=== PATIENT | male | born 1940 | race Caucasian/White ===

== ENCOUNTER → 2018-06-10 12:13 | Outpatient (CLI) | payer MEDICARE, SELFPAY ==
[2018-06-10 14:04] LABS: BUN Creatinine Ratio 11.1 (6-22); Blood Urea Nitrogen 10 mg/dL (9-20); Calcium 9.7 mg/dL (8.4-10.2); Carbon Dioxide 24 mmol/L (22-32); Chloride 107 mmol/L (98-107); Estimated Glomerular Filt Rate > 60.0 mL/min (>60); Glucose 96 mg/dL (80-110); HEMOLYSIS 22 (0-50); Potassium 4.4 mmol/L (3.4-5.1); Sodium 145 mmol/L (137-145)
[2018-06-10 15:30] LABS: Vitamin D 25 Hydroxy (D3) 30.4 ng/mL (30.0-100.0)
== END ==
PROVIDERS: Family Provider Family Medicine; PCP Student in an Organized Health Care Education/Training Program; Visit Provider Student in an Organized Health Care Education/Training Program
DX: I10 Essential (primary) hypertension (principal); T50.2X1A Poisoning by carbonic-anhydrase inhibitors, benzothiadiazides and other diuretics, accidental (unintentional), initial encounter; E55.9 Vitamin D deficiency, unspecified
CPT/HCPCS: 36415; 80048; 82306

== ENCOUNTER → 2018-06-23 12:01 | Outpatient (CLI) | payer MEDICARE, SELFPAY ==
--- NOTE | 2018-06-23 12:03 | DI.US.S_ITS ---
PROCEDURE: US ABD AORTA ANEURYSM SCREEN INDICATIONS: HISTORY SMOKING TECHNIQUE: Real time scanning was performed of the aorta and iliac arteries, with image documentation. COMPARISON: None. FINDINGS: Aorta: Proximal aortic diameter measures 1.7 cm. Mid-aorta measures 1.5 cm. Distal aortic diameter is 1.3 cm. Iliac arteries: Right common iliac artery measures 0.9 cm. Left common iliac artery measures 0.9 cm. IMPRESSION: No abdominal aortic or proximal common iliac artery aneurysm. Dictated by: Francesco MOREL Interpreted: Lorrie Carter MD on 06/23/2018 at 14:59 Approved by: Lorrie Carter M.D. on 06/23/2018 at 16:41
== END ==
PROVIDERS: PCP Student in an Organized Health Care Education/Training Program; Visit Provider Student in an Organized Health Care Education/Training Program
DX: Z13.6 Encounter for screening for cardiovascular disorders (principal); Z87.891 Personal history of nicotine dependence
CPT/HCPCS: 76706

== ENCOUNTER → 2020-11-07 14:25 | Outpatient (CLI) | payer MEDICARE, SELFPAY ==
--- NOTE | 2020-11-07 14:27 | DI.RAD.S_ITS ---
PROCEDURE: XR CHEST 2V INDICATIONS: Chest pain TECHNIQUE: 2 views of the chest were acquired. COMPARISON: None. FINDINGS: Surgical changes and devices: None. Lungs and pleura: Lungs are mildly abnormal with a mild interstitial prominence and there is relative flattening of the diaphragms on the lateral view. This may indicate prior smoking history.. No pleural effusions or pneumothorax. Mediastinum: Mediastinal contours are normal. Heart size is normal. Bones and chest wall: No suspicious bony abnormalities. Soft tissues appear unremarkable. IMPRESSION: A definite source of new chest pain is not seen. Possible mild pulmonary hyperexpansion Dictated by: Reji Hanson M.D. on 11/07/2020 at 15:22 Approved by: Reji Hanson M.D. on 11/07/2020 at 15:33
== END ==
PROVIDERS: PCP Student in an Organized Health Care Education/Training Program; Referring Provider Student in an Organized Health Care Education/Training Program; Visit Provider Student in an Organized Health Care Education/Training Program
DX: R07.9 Chest pain, unspecified (principal)
CPT/HCPCS: 71046

== ENCOUNTER → 2020-11-08 08:44 | Outpatient (CLI) | payer MEDICARE, SELFPAY ==
[2020-11-08 09:56] LABS: Alanine Aminotransferase 32 IU/L (<50); Albumin 4.4 g/dL (3.5-5.0); Albumin Globulin Ratio 1.3 (1.0-2.8); Alkaline Phosphatase 87 U/L (38-126); Aspartate Aminotransferase 44 IU/L (17-59); BUN Creatinine Ratio 15.2 (6-22); Blood Urea Nitrogen 16 mg/dL (9-20); Calcium 9.5 mg/dL (8.4-10.2); Carbon Dioxide 25 mmol/L (22-32); Chloride 105 mmol/L (98-107); Estimated Glomerular Filt Rate > 60.0 mL/min (>60); Globulin 3.3 g/dL (1.7-4.1); Glucose 102 mg/dL (80-110); HEMOLYSIS < 15 (0-50); Potassium 3.9 mmol/L (3.4-5.1); Sodium 140 mmol/L (137-145); Total Protein 7.7 g/dL (6.3-8.2)
== END ==
PROVIDERS: PCP Student in an Organized Health Care Education/Training Program; Referring Provider Student in an Organized Health Care Education/Training Program; Visit Provider Student in an Organized Health Care Education/Training Program
DX: I10 Essential (primary) hypertension (principal); Z78.9 Other specified health status; Z79.899 Other long term (current) drug therapy
CPT/HCPCS: 36415; 80053

== ENCOUNTER → 2021-11-26 14:21 | Outpatient (CLI) | payer MEDICARE, SELFPAY ==
[2021-11-26 17:23] LABS: Alanine Aminotransferase 34 IU/L (<50); Albumin 4.4 g/dL (3.5-5.0); Albumin Globulin Ratio 1.3 (1.0-2.8); Alkaline Phosphatase 88 U/L (38-126); Aspartate Aminotransferase 49 IU/L (17-59); Bilirubin Total 1.4 mg/dL (0.2-1.3); Blood Urea Nitrogen 20 mg/dL (9-20); Carbon Dioxide 25 mmol/L (22-32); Chloride 103 mmol/L (98-107); Cholesterol 169 mg/dL (140-199); Estimated Glomerular Filt Rate 54 mL/min (>60); Globulin 3.5 g/dL (1.7-4.1); Glucose 105 mg/dL (80-110); HDL Cholesterol 56 mg/dL (40-60); HEMOLYSIS < 15 (0-50); LDL Cholesterol Calculated 93 mg/dL (<100); Potassium 4.5 mmol/L (3.4-5.1); Sodium 137 mmol/L (137-145); Total Protein 7.9 g/dL (6.3-8.2); Triglycerides 102 mg/dL (35-150)
[2021-11-26 18:24] LABS: Creatinine Urine Random 89.9 mg/dL
[2021-11-26 18:27] LABS: Microalbumin Urine Random 3.6 mg/dL (0-1.6)
== END ==
PROVIDERS: PCP Student in an Organized Health Care Education/Training Program; Referring Provider Student in an Organized Health Care Education/Training Program; Visit Provider Student in an Organized Health Care Education/Training Program
DX: E78.5 Hyperlipidemia, unspecified (principal); Z12.11 Encounter for screening for malignant neoplasm of colon; I10 Essential (primary) hypertension; Z78.9 Other specified health status
CPT/HCPCS: 36415; 80053; 80061; 82043; 82570

== ENCOUNTER → 2021-11-27 13:59 | Outpatient (CLI) | payer MEDICARE, SELFPAY ==
[2021-11-28 07:37] LABS: Fecal Immunochemical Test Positive (Negative)
== END ==
PROVIDERS: PCP Student in an Organized Health Care Education/Training Program; Referring Provider Student in an Organized Health Care Education/Training Program; Visit Provider Student in an Organized Health Care Education/Training Program
DX: Z12.11 Encounter for screening for malignant neoplasm of colon (principal)
CPT/HCPCS: 82274

== ENCOUNTER → 2021-12-12 09:15 | Outpatient (CLI) | payer MEDICARE, SELFPAY ==
[2021-12-12 10:18] LABS: COVID19 -Nasal RAPID Negative (Negative)
[2021-12-12 11:29] LABS: BUN Creatinine Ratio 12.1 (6-22); Blood Urea Nitrogen 15 mg/dL (9-20); Estimated Glomerular Filt Rate 59 mL/min (>60)
[2021-12-12 11:44] LABS: Creatinine Urine Random 61.3 mg/dL
[2021-12-12 11:48] LABS: Microalbumi Creatinin Ratio Ur 16.3 ug/mg CR (<30)
== END ==
PROVIDERS: Surgery; PCP Student in an Organized Health Care Education/Training Program; Referring Provider Student in an Organized Health Care Education/Training Program; Visit Provider Student in an Organized Health Care Education/Training Program
DX: Z20.822 Contact with and (suspected) exposure to COVID-19 (principal); Z01.812 Encounter for preprocedural laboratory examination; N17.9 Acute kidney failure, unspecified
CPT/HCPCS: 36415; 82043; 82565; 82570; 84520; 87635; C9803

== ENCOUNTER 2021-12-14 09:56 | Day surgery (SDC) | payer MEDICARE, SELFPAY ==
--- NOTE | 2021-12-14 | PATH_ITS ---
[facility] Accession Number: [id number] . 01 Material submitted: . PART A: cecum - CECAL MASS PART B: colon - COLON . 01 Diagnosis: A. Cecum, Mass, Biopsy: Tubulovillous adenoma. No evidence of malignancy or high-grade dysplasia. . B. Colon, Biopsies: Colonic mucosa with no diagnostic abnormality. Negative for active, chronic, and microscopic colitis. Negative for dysplasia and malignancy. . MRV 12/17/2021 1533 Local . 01 Electronically signed: . Kimberly Mckeon MD, Pathologist NPI- [id number] . 01 Gross description: . Part A: CECAL MASS: Received in formalin are multiple fragment(s) of jose, soft tissue measuring 2.0 x 0.6 x 0.2 cm in aggregate submitted entirely in 1 cassette(s) Part B: COLON: Received in formalin is 1 fragment(s) of jose, soft tissue measuring 0.4 x 0.3 x 0.2 cm to 0.3 x 0.3 x 0.3 cm submitted entirely in 1 cassette(s) /CPE 12/15/2021 0722 Local . 01 Pathologist provided ICD-10: D12.0 . 01 CPT . 506931, 899344 Specimen Comment: A courtesy copy of this report has been sent to [phone] Performed at: [facility] [address] [place] [address], [place], [place] [id number] MD Deyvi Melendez MD Phone: [phone]
[2021-12-14 10:10] VITALS: BP 174/91; PULSE 96; RESP 22; TEMP 36.9; O2SAT 98
[2021-12-14 10:12] VITALS: BMI 29.9
[2021-12-14] MEDS: LACTATED RINGERS 1,000 ML 100 ML IV (10:25)
--- NOTE | 2021-12-14 10:50 | PM.HP.1 ---
History of Present Illness History of Present Illness Date Patient Seen: 12/14/21 Time Patient Seen: 10:50 Chief complaint: [facility] [place] Narrative: H/o colon polyps and h/o prostate cancer Patient History Medical History Chicken pox Colon polyps (2009) Dupuytren's contracture (09/28/13) Elevated LFTs Hyperlipidemia (1998) Hypertension (1977) Measles Ulcerative colitis Surgical History History of colonoscopy with polypectomy (03/05/16) History of colonoscopy with polypectomy (2009) Family & Social History Family History Father Hypertension Cardiac disorder Congestive heart failure Mother No problems noted. Brother Colon cancer Social History: household members spouse Tobacco & Substance use: Smoking Status Former smoker alcohol intake current Substance Use Type does not use Meds Home Medications and Allergies Home Medications Medication Instructions Recorded Confirmed Type potassium chloride 20 mEq 20 meq PO DAILY #90 tab 01/03/21 Rx tablet,extended release furosemide 40 mg tablet 40 mg PO BID #180 tab 10/22/21 Rx simvastatin 40 mg tablet 40 mg PO QDAY #90 tab 10/22/21 Rx atenolol 100 mg tablet 100 mg PO QDAY #90 tab 10/29/21 12/14/21 Rx felodipine 5 mg tablet,extended 5 mg PO DAILY #90 tab 10/29/21 12/14/21 Rx release 24 hr losartan 100 mg tablet 100 mg PO DAILY #90 tab 12/03/21 Rx Allergies Allergy/AdvReac Type Severity Reaction Status Date / Time No Known Drug Allergies Allergy Verified 12/14/21 10:01 Review of Systems Review of Systems ROS: Yes All systems reviewed with the patient and are negative except as otherwise documented Exam Vital Signs (past 8 hours): - 12/14/21 10:10 Temperature 98.5 F Pulse Rate 96 H Respiratory Rate 22 Blood Pressure 174/91 H Pulse Oximetry 98 Oxygen Delivery Method Room Air Const General: cooperative and comfortable Nutritional Appearance: average body habitus Orientation: alert HENMT Head: normal to inspection, normocephalic and atraumatic Eyes General: appearance normal, both eyes and all related structures Neck Neck: trachea midline Chest Chest: normal inspection of the chest Resp Effort & Inspection: normal respiratory effort and able to speak in complete sentences Cardio Rate: regular rate Rhythm: regular rhythm GI Inspection: normal to inspection Skin General: atrophy and ecchymosis Neuro General: patient alert, patient awake and patient oriented x3 Cognition: normal cognition Extrem General: normal to inspection Psych Appearance: grossly normal Affect: normal affect Judgment: judgment good Assessment & Plan Assessment & Plan narrative: Positive FIT test and h/o colon polyps. H/o Crohn's dz Plan: colonoscopy with biopsy if needed. COVID-19 COVID-19 status: Negative Time Spent With Patient Time with patient: less than 30 minutes Critical Care time: I spent a total of [] minutes of critical care time on this patient's care today; this time is exclusive of procedural time.
[2021-12-14] MEDS: MIDAZOLAM 5 MG/5 ML VIAL 4 MG IV (11:13)
[2021-12-14] MEDS: fentaNYL 250 MCG/5 ML INJ IV (11:13)
--- NOTE | 2021-12-14 11:13 | PM.OP.COLON ---
Operative Date/Time/Diagnoses Date of procedure: 12/14/21 Time of procedure: 11:13 Pre-op diagnosis: h/o colon polyps, positive FIT test, H/o Crohn's Post-op diagnosis: same Procedure & Clinicians Study performed: Colonoscopy with hot and cold snare biopsy, cold forceps biopsy using moderate sedation Same procedure as scheduled: Yes Indications: Positive fit test, history of colon polyps, history of Crohn's disease Surgeon: Trish Mendosa Procedure Notes SCOAP/Timeout: done Procedure in detail: Preop diagnosis: Positive fit test Postop diagnosis: Same Operative procedure: Colonoscopy with hot and cold snare biopsy and cold forceps polypectomy Surgeon: Fabiola Mendosa MD Anesthetic: Fentanyl and Versed, Findings: A cecal mass covering 2/3 circumference of the cecal valve area. And a small sessile polyp in the transverse colon taken with the cold forceps measuring approximately 4 mm in size Procedure: Patient placed in a lateral position. Rectal exam performed showing no mass no colon. Colonoscope inserted into the rectum and advanced to ileocecal valve with minimal difficulty. Insufflation extraction of the scope and the above findings. Retroflexed was included in the rectum where there is scarring from previous prostate cancer treatment but no masses. No significant mucosal abnormalities Impression: Cecal mass likely cancerous, needs resection due to bleeding. And a edematous polyp of the transverse colon. Plan: Referral to Dr. Robin Simeon in surgery to discuss options. Referral back to his PCP will organized treatment with Oncology when appropriate. Sedation minutes: 27 Findings: divertiulosis, polyp(s) (Transverse, 4 mm, cold forceps) and possible cancer (Cecum) Specimen(s): other (Cecal biopsies and polyp from transverse colon) Complications: none Impression: Likely some right-sided colon cancer and a adenomatous polyp in the transverse colon. Post-procedure Recommendations: Other recommendation(s) (Referral to general surgeon marked on a MD milton) Disposition: PACU
[2021-12-14 11:41] VITALS: BP 111/72; PULSE 78; RESP 18; TEMP 36.4; O2SAT 95
[2021-12-14 11:46] VITALS: BP 134/78; PULSE 80; RESP 14; O2SAT 96
[2021-12-14 11:50] VITALS: BP 133/76; PULSE 79; RESP 18; O2SAT 94
[2021-12-14 11:53] VITALS: BP 127/76; PULSE 78; RESP 16; TEMP 36.3; O2SAT 94
--- NOTE | 2021-12-14 12:03 | SUR.PHASEII ---
talked to Dr. Mendosa about talking to pt about his diagnosis. She said she would come and talk to him.
[2021-12-14 12:07] VITALS: BP 154/69; PULSE 77; RESP 16; TEMP 36.6; O2SAT 96
== END 2021-12-14 13:00 | disposition home or self-care (01) ==
PROVIDERS: PCP Student in an Organized Health Care Education/Training Program; Referring Provider Surgery; Visit Provider Surgery
PROC: 0DJD8ZZ Inspection of Lower Intestinal Tract, Via Natural or Artificial Opening Endoscopic (ICD-10-PCS; CPT 45378; principal; 2021-12-14 10:45)
DX: R19.5 Other fecal abnormalities (principal); Z86.010 Personal history of colon polyps; Z85.46 Personal history of malignant neoplasm of prostate; D12.0 Benign neoplasm of cecum
CPT/HCPCS: 45385; 45380; 99152; 99153; J2250; J3010

== ENCOUNTER → 2021-12-24 15:51 | Outpatient (CLI) | payer MEDICARE, SELFPAY ==
[2021-12-24 17:20] LABS: Add Manual Diff / Slide Review NO; Basophils Absolute Auto 0 /uL (0-100); Basophils Percent Auto 0.3 % (0-2); Eosinophils Absolute Auto 300 /uL (0-450); Eosinophils Percent Auto 2.7 % (2-4); Hematocrit 40.1 % (41-53); Hemoglobin 13.8 g/dL (13.5-17.5); Lymphocytes Absolute Auto 1300 /uL (1100-4500); Lymphocytes Percent Auto 11.5 % (25-40); Mean Corpuscular HGB Conc 34.3 % (30-36); Mean Corpuscular Hemoglobin 34.8 PG (26-34); Mean Corpuscular Volume 101.6 fL (80-100); Monocytes Absolute Auto 1500 /uL (0-900); Monocytes Percent Auto 13.4 % (3-14); Neutrophils Absolute Auto 8000 /uL (1500-7000); Neutrophils Percent Auto 72.1 % (50-75); Platelet Count 277 X10^3/uL (150-400); Red Blood Cell Count 3.95 X10^6/uL (4.5-5.9); Red Cell Distribution Width 12.8 % (11.6-14.8); White Blood Cell Count 11.1 X10^3/uL (4.5-11.0)
[2021-12-24 17:46] LABS: Alanine Aminotransferase 34 IU/L (<50); Albumin 4.4 g/dL (3.5-5.0); Albumin Globulin Ratio 1.5 (1.0-2.8); Alkaline Phosphatase 89 U/L (38-126); Aspartate Aminotransferase 41 IU/L (17-59); BUN Creatinine Ratio 13.7 (6-22); Bilirubin Total 1.3 mg/dL (0.2-1.3); Blood Urea Nitrogen 16 mg/dL (9-20); Calcium 9.4 mg/dL (8.4-10.2); Carbon Dioxide 26 mmol/L (22-32); Chloride 104 mmol/L (98-107); Estimated Glomerular Filt Rate > 60 mL/min (>60); Glucose 102 mg/dL (80-110); HEMOLYSIS < 15 (0-50); Potassium 4.4 mmol/L (3.4-5.1); Sodium 138 mmol/L (137-145); Total Protein 7.4 g/dL (6.3-8.2)
[2021-12-24 18:12] LABS: Carcinoembryonic Antigen 7.2 ng/mL (0.1-3.0)
== END ==
PROVIDERS: PCP Student in an Organized Health Care Education/Training Program; Referring Provider Surgery; Visit Provider Surgery
DX: K63.89 Other specified diseases of intestine (principal)
CPT/HCPCS: 36415; 80053; 82378; 85025; 99214

== ENCOUNTER → 2022-01-15 09:04 | Outpatient (CLI) | payer MEDICARE, SELFPAY ==
[2022-01-15 10:47] LABS: COVID19 -Nasal RAPID Negative (Negative)
== END ==
PROVIDERS: PCP Student in an Organized Health Care Education/Training Program; Visit Provider Surgery
DX: Z01.812 Encounter for preprocedural laboratory examination (principal); Z20.822 Contact with and (suspected) exposure to COVID-19
CPT/HCPCS: 87635

== ENCOUNTER 2022-01-16 11:06 | Inpatient (IN) | payer MEDICARE, SELFPAY ==
[2022-01-08 07:30] VITALS: BMI 29.2
[2022-01-16] VITALS (12 sets, daily range): BP systolic 110–144; BP diastolic 39–75; PULSE 62–82; RESP 14–19; TEMP 35.7–37.1; O2SAT 93–97; BMI 29.2
--- NOTE | 2022-01-16 | PATH_ITS ---
[facility] Accession Number: [id number] . 01 Material submitted: . colon - RIGHT COLON . 01 Diagnosis: Right Colon, Right Hemicolectomy: Invasive adenocarcinoma, moderately differentiated; see Cancer Case Summary. One of eight lymph nodes positive for metastatic adenocarcinoma. Intact DNA mismatch repair proteins by immunohistochemical technique. Fibrous obliteration of the tip of the appendix. . . CANCER CASE SUMMARY - COLON AND RECTUM Specimen Procedure: Right hemicolectomy. Tumor Tumor site: Cecum, ileocecal valve. Histologic type: Adenocarcinoma. Histologic grade: G2, moderately differentiated. Tumor size: 2.5 cm in greatest dimension. Multiple primary sites: Not applicable. Tumor extent: Invades through muscularis propria into pericolonic tissue. Macroscopic tumor perforation: Not identified. Lymphovascular invasion: Not identified. Perineural invasion: Present. Treatment effect: No known presurgical therapy. Margins Margin status for invasive carcinoma: All margins negative for invasive carcinoma. Margin status for noninvasive tumor: All margins negative for dysplasia. Regional lymph nodes: Regional lymph node status: Tumor present in regional lymph nodes. Number of lymph nodes with tumor: One. Number of lymph nodes examined: Eight. Tumor deposits: Present. Number of tumor deposits: One. Pathologic stage classification (pTNM, AJCC 8th Edition): PT category: pT3. PN categoar: pN1a. Special studies: IMMUNOHISTOCHEMISTRY TESTING FOR MISMATCH REPAIR PROTEINS: . MLH1: Intact nuclear expression. MSH2: Intact nuclear expression. MSH6: Intact nuclear expression. PMS2: Intact nuclear expression. Background nonneoplastic tissue/internal control with intact nuclear expression. . INTERPRETATION: No loss of nuclear expression of MMR proteins: low probability of microsatellite instability-high (MSI-H)* . * There are exceptions to the above IHC interpretations. These results should not be considered in isolation, and clinical correlation with genetic counseling is recommended to assess the need for germline testing. . * This test was developed and its performance characteristics determined by [employer]. It has not been cleared or approved by the U.S. Food and Drug Administration. The FDA has determined that such clearance or approval is not necessary. This test is used for clinical purposes. It should not be regarded as investigational or for research. [facility] 01/22/[address] [facility] . 01 Electronically signed: . Benjie Swann MD, PhD, Pathologist NPI- [id number] . 01 Gross description: . Received in formalin in a specimen container labeled with the patient's name, medical record number, and right colon, is a segment of colon with stapled resection margin, attached appendix, and mesentery. The actual colon measures 10.0 cm in length and 3.0 cm in diameter. Stapled resection margin measures 3.5 cm in length and is inked in green. The proximal resection margin (terminal ileum resection margin) measures 2.0 cm in length and is inked in red. The distal resection margin (colon resection margin) is inked in green. The fibroadipose tissue is serially sectioned and three possible lymph nodes are grossly identified ranging from 0.6 to 0.8 cm in maximum dimension. Attached appendix measures 3.5 cm in length and 0.5 cm in maximum diameter. Attached mesentery measures 13.0 x 7.0 x 7.0 cm. There is a centrally located defect within colonic wall that measures 4.0 cm in diameter. The defect is 3.0 cm away from the colonic resection margin. The defect is revealed in folded colonic mucosa, it is inked in blue. The serosal surface is pink, smooth, glistening, and grossly unremarkable. The mesenteric resection margin is inked in black. The specimen is opened to reveal a 2.5 x 2.0 x 0.8 cm raised multilobulated irregularly shaped mass. The mass is 7.5 cm away from the resection margin and grossly focally invades the ileocecal valve. The ileocecal valve is 5.5 cm away from the resection margin. On cut surfaces, the mass is solid white, slightly rigid on touch. The serosal surface underneath the mass is inked in blue. On cut surfaces the mass is going in and through the muscularis propria and grossly abuts the serosal surface. No other distinct lesions are grossly identified. . The remainder of colonic mucosa is folded pink and grossly unremarkable. . The appendix is serially sectioned to reveal 0.2 cm lumen filled by fecal content. No distinct lesions or perforations are grossly identified within the appendix. . The apprenticeship representative sections are submitted as follows: A1: Terminal ileum resection margin en face. A2: Colon resection margin en face. A3: Mesentery resection margin shave en face. A4: Mass with ileocecal valve cross-section. A5-A7: Mass apprenticeship representative cross-section. A8: Colonic wall defect cross-section. A9: Grossly unremarkable colonic wall full thickness. A10: Deep and cross-sections of appendix. A11: One possible lymph node, bisected, entirely submitted. A12: Two possible lymph nodes, both bisected, entirely submitted (one of the lymph nodes is inked in blue). A13-A22: Fibroadipose tissue. (KV:cmc10 111434) A23-A37: Additional fibroadipose tissue. (KV:cmc10 307132) /MRV 01/22/2022 1139 Local . 01 Pathologist provided ICD-10: C18.0 . 01 CPT . 442843, S71374, T76187 Specimen Comment: A courtesy copy of this report has been sent to [phone] Performed at: 01 [facility] [address] [place] [address], [place], [place] [id number] MD Deyvi Melendez MD Phone: [phone]
--- NOTE | 2022-01-16 11:19 | DI.CT.S_ITS ---
PROCEDURE: CT CHEST ABD PEL W CON INDICATIONS: 81-year-old man with cecum mass. TECHNIQUE: After the administration of oral and intravenous contrast, axial sections acquired from the supraclavicular neck to the pubic symphysis. Coronal and sagittal reformats were performed. For radiation dose reduction, the following was used: automated exposure control, adjustment of mA and/or kV according to patient size. COMPARISON:None. FINDINGS: Image quality: Excellent. CHEST: Lower Neck: No enlarged lymph nodes. Thyroid: Within normal limits. Axillae: No enlarged lymph nodes. Chest Wall: Unremarkable. Lungs and Airways: Bilateral subpleural septal thickening and mild pulmonary fibrosis, most pronounced in the right middle lobe and lingula. There is a 3 mm nodule in the right upper lobe (series 3, image 140). No consolidation. Pleura: No pneumothorax or pleural effusions. Heart: Heart size is mildly increased. No pericardial effusion. Mild coronary artery calcification. Thoracic Vessels: The aorta and pulmonary arteries demonstrate normal size. Mediastinum and Pat: No enlarged lymph nodes. Esophagus: No wall thickening. Small hiatal hernia. ABDOMEN: Liver: Normal size. Moderate hepatic steatosis. Gallbladder: Unremarkable. Biliary ducts: Unremarkable. Pancreas: Unremarkable. Spleen: Unremarkable. Adrenal Glands: Unremarkable. Kidneys and Ureters: Normal size and enhancement. There are a couple small nonobstructive stones in the inferior pole of the left kidney measuring 4 mm and 1 mm. Stomach and Bowel: There is irregular focal thickening of cecum. Stomach, small bowel loops, and colon are normal in caliber. Peritoneum: No abnormal intraperitoneal fluid. No free air. Ventral Wall: No hernia. Abdominal Nodes: No retroperitoneal adenopathy by size criteria. There is mesenteric stranding. A 1.4 x 1.7 cm mesenteric lymph node is present. Tiny mesenteric lymph nodes are seen in the right lower quadrant measuring 2-3 mm. Vessels: Aorta and inferior vena cava are normal in size. Moderate atherosclerotic calcifications. PELVIS: Pelvic Organs: Unremarkable. Bladder: Unremarkable. Pelvic Nodes: No enlarged lymph nodes. Miscellaneous: Small fat containing left inguinal hernia. Bones: There is grade 1 anterolisthesis of L5 on S1 secondary to bilateral pars defects. Degenerative disc disease and facet arthropathy in lumbar spine. IMPRESSION: 1. There is irregular focal thickening of cecum. Please correlate with tissue diagnosis. 2. Mesenteric stranding and 8 enlarged mesenteric lymph node. This findings are nonspecific and may be secondary to infectious, inflammatory or neoplastic etiology. Recommend clinical correlation and follow up. 3. Hepatic steatosis. 4. Non-obstructive left renal calculi. 5 A 3 mm nodule in the right upper lobe. Please see enclosed follow-up recommendation. 6. Bilateral subpleural septal thickening and pulmonary fibrosis. The finding may be secondary to chronic interstitial lung disease such as UIP. 7. Small hiatal hernia. Fleischner Society criteria for SOLID lung nodule followup. Nodule size (mm)Low-risk patientHigh-risk patient?4No follow-up neededFollow-up at 12 mo; if no change, no further follow-up>0-7Biitsh-ua CT at 12 mo; if no change, no further follow-up needed.Initial follow-up CT at 6-12 mo, then 18-24 mo if no change. >6-8Initial follow-up CT at 6-12 mo, then 18-24 mo if no change. Initial follow-up CT at 3-6 mo, then 9-12 mo and 24 mo if no change. >8Follow-up CT at 3, 9, 24 mo. Or PET and/or biopsy.Same as for low-risk pts. Dictated by: Avery Lance M.D. on 01/16/2022 at 14:03 Approved by: Avery Lance M.D. on 01/16/2022 at 14:15
[2022-01-16] MEDS: LACTATED RINGERS 1,000 ML 42 ML IV (11:48)
--- NOTE | 2022-01-16 13:09 | PM.PREOP ---
Pre-operative Note COVID-19 COVID-19 status: Negative Result date/Date tested (Pos, Neg/Pending): 01/15/22 Interval Note History & Physical reviewed/Exam performed by Physician: Yes Changes to H&P: Yes H&P completed within 30 days and has changed as indicated here:: CT chest/abdomen/pelvis shows no obvious metastatic lesions, no obvious cirrhosis. ASA Class (for procedural sedation): II
[2022-01-16] MEDS: AMPICILLIN/SULBACTAM 3 GM 3 GM in SODIUM CHLORIDE 0.9% 100 ML IV (14:35)
[2022-01-16] MEDS: BUPIVACAINE 0.5% (PF) VIAL 30 ML INJ (14:40)
[2022-01-16] MEDS: LIDOCAINE 1% W/EPI 20 ML INJ (14:40)
--- NOTE | 2022-01-16 15:01 | SUR.OPER ---
Supine on padded OR bed, head on pillow, left arm padded and tucked at side, legs uncrossed, safety belt at thigh, tape over blanket over lower legs .
[2022-01-16] MEDS: BUPIVACAINE LIPOSOME 266 MG/20 ML VIAL INJ (17:40)
--- NOTE | 2022-01-16 18:25 | P.OP_ITS ---
Operative Date/Time/Diagnoses Date of procedure: 01/16/22 Time of procedure: 18:26 Pre-op diagnosis: Unresectable cecal polyp Post-op diagnosis: same Procedure & Clinicians Procedure: Laparoscopic assisted right hemicolectomy Same procedure as scheduled: Yes Surgeon: Robin Simeon Varnish Filterer: Naldo Brown Operative Notes Procedure in detail: Operation: Laparoscopic assisted right hemicolectomy Surgeon: Arely REILLY Varnish Filterer: Johnie Brown provided assistance with exposure as well as creation of the anastomosis. Anesthesia: General endotracheal anesthesia The patient is a 81-year-old man who presented with an unresectable cecal polyp. The pathology did not show malignancy however because the polyp was behind the ileocecal valve and was not endoscopically resectable he was consented for a laparoscopic assisted right hemicolectomy. Unasyn was administered. The patient was brought to the operating room and placed on the table in the supine position. General endotracheal anesthesia was induced. Wynne catheter was placed. The abdomen was prepped and draped in the usual fashion and a time-out was performed. A 1 cm supraumbilical incision was created. Dissection was carried down to the fascia which was scored in the midl ine with cautery. The peritoneum was pierced with a Peon clamp. A Javire port was placed and the abdomen was insufflated to 15 mmHg. The camera was inserted and there was no evidence of any injury from the entry. 5 mm ports were placed in the suprapubic position, right lower quadrant, right upper quadrant and left upper quadrant under direct vision. We explored the abdomen. The patient had r ather significant visceral adiposity. We started taking down the omental attachments to the proximal transverse colon until we could clearly see first portion the duodenum. We carefully dissected the right transverse mesocolon off of duodenum and pancreatic head staying in the natural cleavage plane. We then took down the hepatic flexure and the right colon in the same plane. We then mobilized the cecum and the mesentery to the terminal ileum off of the sidewall. The distal terminal ileum was adherent to the right pelvic sidewall and was difficult to mobilize it laparoscopically. Furthermore the midtransverse colon was also quite adherent to the bulky omentum. We worked extensively to mobilize the transverse colon beyond the midline. We removed the laparoscopic equipment and created a 12 cm periumbilical incision. An Elie retractor was placed into the wound and the right colon was exteriorized. We then created mesenteric windows along the mesenteric border of terminal ileum and another along the proximal transverse colon just proximal to right branch of the middle colic artery. We divided the mesentery with the LigaSure. We then lined up the terminal ileum and transverse colon and a 3-0 silk stitch was placed at the crotch. Blue towels were placed around the bowel and enterotomies were created. A [id number] functional end-to-end anastomosis was created using the 75 mm linear EDGAR stapler with blue loads. The enterotomies was closed in 2 layers using a running 3-0 PDS followed by multiple interrupted 3-0 silk sutures. The anastomosis appeared well perfused and patent and allowed to fall back into the right abdomen. We then transition to a clean closure and injected Exparel into the plane above and below the fascia. The fascia was then closed with a running 2-0 PDS suture. The skin incisions were closed with 4 Monocryl and Steri-Strips. EBL: 100 mL Specimen: Terminal ileum, appendix and right colon. Post-operative Condition: stable Disposition: PACU
--- NOTE | 2022-01-16 19:08 | SUR.PHASEI ---
1650: Pt reports pain as tolerable, denies nausea and ready to transfer to room. Report given to RAHEEL Rizzo using SBAR with time allowed for questions. Pt transported to room with 2 bags of belongings. Spouse updated, and was at bedside during handoff of care.
[2022-01-16] MEDS: ONDANSETRON 4 MG/2 ML INJ IV (20:39)
[2022-01-16] MEDS: ACETAMINOPHEN 325 MG TABLET 650 MG PO (20:39)
[2022-01-16] MEDS: HYDROCODONE/ACET 5/325 TABLET 1 TAB PO (20:40)
[2022-01-16] MEDS: FUROSEMIDE 40 MG TABLET PO (20:40)
[2022-01-16] MEDS: ATORVASTATIN 20 MG TABLET PO (20:40)
[2022-01-16] MEDS: LACTATED RINGERS 1,000 ML 100 ML IV (20:58)
[2022-01-17] VITALS: BP 116/47; PULSE 82; RESP 16; TEMP 37.2; O2SAT 93
[2022-01-17 05:19] LABS: Add Manual Diff / Slide Review NO; Basophils Absolute Auto 0 /uL (0-100); Basophils Percent Auto 0.2 % (0-2); Eosinophils Absolute Auto 0 /uL (0-450); Hematocrit 36.6 % (41-53); Hemoglobin 12.6 g/dL (13.5-17.5); Lymphocytes Absolute Auto 700 /uL (1100-4500); Lymphocytes Percent Auto 5.2 % (25-40); Mean Corpuscular HGB Conc 34.3 % (30-36); Mean Corpuscular Hemoglobin 34.2 PG (26-34); Mean Corpuscular Volume 99.7 fL (80-100); Monocytes Absolute Auto 1800 /uL (0-900); Monocytes Percent Auto 12.6 % (3-14); Neutrophils Absolute Auto 11500 /uL (1500-7000); Platelet Count 265 X10^3/uL (150-400); Red Blood Cell Count 3.67 X10^6/uL (4.5-5.9); Red Cell Distribution Width 12.6 % (11.6-14.8); White Blood Cell Count 14.1 X10^3/uL (4.5-11.0)
[2022-01-17 05:23] LABS: BUN Creatinine Ratio 12.4 (6-22); Blood Urea Nitrogen 13 mg/dL (9-20); Calcium 8.2 mg/dL (8.4-10.2); Carbon Dioxide 24 mmol/L (22-32); Chloride 104 mmol/L (98-107); Estimated Glomerular Filt Rate > 60 mL/min (>60); Glucose 133 mg/dL (80-110); HEMOLYSIS < 15 (0-50); Potassium 3.7 mmol/L (3.4-5.1); Sodium 138 mmol/L (137-145)
[2022-01-17 07:50] VITALS: BP 151/65; PULSE 82; RESP 18; TEMP 36.7; O2SAT 95
[2022-01-17 08:16] VITALS: BP 151/65; PULSE 82
[2022-01-17] MEDS: atenoloL 50 MG TABLET 100 MG PO (08:16)
[2022-01-17] MEDS: POTASSIUM CHLORIDE 20 MEQ TAB PO (08:16)
[2022-01-17] MEDS: FUROSEMIDE 40 MG TABLET PO ×2 (08:16→20:07)
[2022-01-17] MEDS: LOSARTAN 50 MG TABLET 100 MG PO (08:16)
[2022-01-17] MEDS: AMLODIPINE 5 MG TABLET PO (08:17)
[2022-01-17] MEDS: LACTATED RINGERS 1,000 ML 100 ML IV (08:17)
--- NOTE | 2022-01-17 12:28 | CM.DANOTE ---
DCP Assessment: Payor: Medicare PCP: MD Amy Pt is a 81 y.o. M who was admitted to the floor for status post R hemicolectomy. Pt surgery yesterday 01/16/22. DCP met with pt this morning bedside. Pt was sitting in the chair watching TV. DCP introduced herself and role. Pt states that he lives with his spouse, Josephine, in a 1 story house in [place]. Pt states that he still drives POV and denies any DME use. Pt states that he is independent and still active. Pt denies any resources at this time. DCP did not identify any needs. White board updated. Instructed pt to call with any questions that might arise. P: Once pt medically stable for discharge, pt to discharge home via spouse POV. Adela Reyes RN/SONJA Discharge Planning/Care Management CM Discharge Assessment Start: 01/17/22 12:25 Freq: Status: Active Protocol: Document 01/17/22 12:26 SEKOU (Rec: 01/17/22 12:27 [id number]) Discharge Planning Assessment Assigned Embroidery Assistant Adela Reyes RN/SONJA Advance Directives? Yes Advance Directives on File No History Provided By Patient,Medical Record Prior Living Arrangements House Household Members spouse Type of transporation used prior to Drives own vehicle admit Independent with ADL's Yes Is patient alert and oriented? Yes Caregiver for Another No Discharge Plan Home Referrals Initiated None needed Additional Comment At this time Whiteboard Updated in Patient Room with Yes name and ext. # of Embroidery Assistant Comment Instructed to call Review Status In Process Please Provide Date Initial DC 01/17/22 Assessment Was Performed Next Review Type Continued Stay Review Pre-Anesthesia Assessment Start: 01/08/22 07:30 Freq: Status: Complete Protocol: Document 01/08/22 07:30 CAB (Rec: 01/08/22 08:43 CAB [id number]) Pre-Anesthesia Assessment Preferred Name [facility] Patient Information Reviewed Via Phone Assessment Assessment Completed With Patient Comment COVID screen @ 01/15/22 Primary Care Provider Edgardo Reyes Seen Specialist in Last 12 Months Yes Specialist Seen General surgeon,Oncologist Primary Language Samoan Mobile Sales Assistant Required No Height 180.34 cm Weight 95.254 kg Body Mass Index (BMI) 29.2 Hearing Ability Normal Visual Assist Glasses Dentition Type Teeth, Natural Present Barriers to Learning None Hx Anesthesia Reactions No Hx Family Anesthesia Reaction No Hx Malignant Hyperthermia No Hx Blood Transfusions No Hx Blood Transfusion Reaction No Anesthesia Review Requested No alcohol intake current alcohol intake frequency 3 or more drinks per day Smoking Status Former smoker how long ago did patient quit smoking 45 years ago Substance Use Type does not use Pain Present Pain Reported Comment Right heel, low back pain Musculoskeletal Symptoms Back Pain History of Falling (Recent or History of No ) Patient is completely paralyzed or No completely immobile Mental Status Oriented to own ability Is patient on oxygen? No Does patient have VENCES/SOB No Hx Sleep Apnea Yes CPAP/BIPAP use prescribed not used Currently Taking a Beta Haile Yes: Metoprolol Can You Climb a Flight of Stairs Without Yes SOB Hx Chest Pain No Hx SOB No Hx Syncope or Dizziness No Anti-Coagulant Therapy No Has a Continuous Improvement Facilitator No Cardiac Testing No Hx Pacemaker/ICD No Pacemaker Rep Required? No Diet Type At Home Regular dysphagia No Bladder Pattern Urgency Urinary Catheter Present No Hx Urinary Self Catheterization No Diabetes No Hx Drug Resistant Organism No Presence of External or Internal Medical Yes: Bilat eye IOLs Devices Have you had any close contact with No someone diagnosed with COVID-19? Received a COVID vaccine? Yes: booster x 1 Marital Status Lives With spouse Prior Living Arrangements House Support System Spouse Does the Patient Have Assistance After Yes Surgery Patient Discharge Plan Description Return Home Comment Pt advised up to 3 day length of stay per surgeon Feels Safe in Current Environment Yes Been Physically Hurt or Threatened By a No Person in Current Environment Do you have thoughts of harming yourself None or others? Are you currently considering suicide? No Do you have a plan to hurt yourself or No Plan others? Do You Have Any Spiritual Beliefs That No May Affect Your HC Choices? Do You Have Any Cultural Practices That No May Affect Your HC Choices? Who Can We Speak to About Patient's Care Family, friends Identifying Code for Release of Patient Declines to issue Information Health Care Proxy/Next of Kin Josephine () Health Care Proxy Emergency Contact Name Josephine () Emergency Contact Advance Directives? Yes Advance Directives on File No Requested Patient Bring Advanced Yes Directives DOS Power of Cream Beater No PAC Instructions Medications to take/avoid, Nasal antibiotic,No ETOH/ petroleum product on skin DOS, NPO,Post-op transportation,Pre -op antibiotic,Sturdy shoes/ comfortable clothes,Do not bring valuables and remove jewelry
--- NOTE | 2022-01-17 13:09 | PC.NURSE ---
Addendum entered by Connie Sparks R.N. 01/17/22 16:33: notified provider that patient is DNR. VTO to dc IV fluids since patient is drinking plenty of water. Original Note: king removed. dressing changed since bottom half was saturated and started to leak. placed new abd pad
[2022-01-17] MEDS: HYDROCODONE/ACET 5/325 TABLET 1 TAB PO (15:26)
--- NOTE | 2022-01-17 16:10 | P.PN_ITS ---
Subjective Subjective Date Patient Seen: 01/17/22 Time Patient Seen: 16:10 Interval history: Leonardo is doing well today. He has been up walking. Has tolerated some of his diet. He has no pain to report. Exam Vital Signs (past 8 hours): - 01/17/22 08:16 01/17/22 08:16 Pulse Rate 82 Blood Pressure 151/65 H Oxygen Delivery Method Room Air Oxygen Delivery Method Room Air Oxygen Flow Rate 0 Const General: comfortable Resp Effort & Inspection: normal respiratory effort GI Palpation: soft Objective Labs Result Diagrams: 01/17/22 05:00 01/17/22 05:00 Labs: Laboratory Results - last 24 hr 01/17/22 01/17/22 05:00 05:00 WBC 14.1 H RBC 3.67 L Hgb 12.6 L Hct 36.6 L MCV 99.7 MCH 34.2 H MCHC 34.3 RDW 12.6 Plt Count 265 Neut % (Auto) 82.0 H Lymph % (Auto) 5.2 L [place] % (Auto) 12.6 Eos % (Auto) 0.0 L Baso % (Auto) 0.2 Neut # (Auto) 46020 H Lymph # (Auto) 700 L [place] # (Auto) 1800 H Eos # (Auto) 0 Baso # (Auto) 0 Sodium 138 Potassium 3.7 Chloride 104 Carbon Dioxide 24 BUN 13 Creatinine 1.05 Estimated GFR > 60 BUN/Creatinine Ratio 12.4 Glucose 133 H Calcium 8.2 L [facility] Medical History (Updated 01/17/22 @ 16:11 by Robin Simeon MD) Chicken pox Chronic low back pain Colon polyps (2009) Dupuytren's contracture (09/28/13) Elevated LFTs Hyperlipidemia (1998) Hypertension (1977) Measles SERENITY (obstructive sleep apnea) Pain of right heel Ulcerative colitis Surgical History (Updated 01/08/22 @ 08:10 by Khalida Rodriguez RN) History of colonoscopy with polypectomy (03/05/16) History of colonoscopy with polypectomy (2009) Hx of bilateral cataract extraction Hx of tonsillectomy Family History Father Hypertension Cardiac disorder Congestive heart failure Mother No problems noted. Brother Colon cancer Social History household members: spouse Smoking Status: Former smoker alcohol intake: current substance use type: does not use Assessment & Plan Assessment and plan (1) Postoperative examination: Status: Acute Plan Doing well on postop day 1 following a laparoscopic-assisted right hemicolectomy DC Wynne catheter today Awaiting bowel function Time Spent With Patient Critical Care time: I spent a total of [] minutes of critical care time on this patient's care t consuelo; this time is exclusive of procedural time. Quality VTE Deep Vein Thrombosis/Pulmonary Embolism Present on Admission: No
[2022-01-17 20:00] VITALS: BP 150/83; PULSE 74; RESP 18; TEMP 37.4; O2SAT 97
[2022-01-17] MEDS: ATORVASTATIN 20 MG TABLET PO (20:07)
[2022-01-18] MEDS: POTASSIUM CHLORIDE 20 MEQ TAB PO (08:03)
[2022-01-18] MEDS: HYDROCODONE/ACET 5/325 TABLET 1 TAB PO (08:03)
[2022-01-18] MEDS: ENOXAPARIN 40 MG/0.4 ML SYRINGE SUBCUT (08:04)
[2022-01-18] MEDS: LOSARTAN 50 MG TABLET 100 MG PO (08:04)
[2022-01-18] MEDS: atenoloL 50 MG TABLET 100 MG PO (08:04)
[2022-01-18] MEDS: AMLODIPINE 5 MG TABLET PO (08:04)
[2022-01-18] MEDS: FUROSEMIDE 40 MG TABLET PO (08:04)
--- NOTE | 2022-01-18 08:09 | PC.NURSE ---
Late Entry: Wynne D/C documentation per RN note
[2022-01-18 13:53] VITALS: BP 140/73; PULSE 76; RESP 17; TEMP 37.1; O2SAT 98
--- NOTE | 2022-01-18 15:03 | PM.DS.1 ---
History of Present Illness History of Present Illness Date Patient Seen: 01/18/22 Time Patient Seen: 15:04 Chief complaint: INPT Narrative: 81-year-old man who is admitted to the hospital for elective right hemicolectomy for a incompletely resected colonic polyp within the cecum. Discharge Providers Provider Date of admission: 01/16/22 11:06 Discharge Date: 01/18/22 Primary care physician: Edgardo Reyes MD Discharge provider: Naldo Brown MD Summary Hospital Course Discharge Diagnosis: Colonic polyp Status post colectomy Hospital Course: Patient underwent a laparoscopic assisted ileocecectomy 01/16/2022. Operation was unremarkable. He progressed postoperatively. At discharge she is tolerant of diet and has had return of bowel function. His pain is well controlled he is afebrile and ambulatory. Exam Vital Signs (past 8 hours): - 01/18/22 07:40 01/18/22 13:53 Temperature 98.8 F Pulse Rate 76 Respiratory Rate 17 Blood Pressure 140/73 Pulse Oximetry 98 Oxygen Delivery Method Room Air Oxygen Flow Rate 0 Oxygen Delivery Method Room Air Oxygen Flow Rate 0 Narrative Exam Narrative: General adult male alert oriented no acute distress Chest nonlabored respiration Abdomen soft appropriately tender to palpation. Midline incision is clean dry intact with magali. Objective Labs Result Diagrams: 01/17/22 05:00 01/17/22 05:00 [facility] Medical History (Updated 01/17/22 @ 16:11 by Robin Simeon MD) Chicken pox Chronic low back pain Colon polyps (2009) Dupuytren's contracture (09/28/13) Elevated LFTs Hyperlipidemia (1998) Hypertension (1977) Measles SERENITY (obstructive sleep apnea) Pain of right heel Ulcerative colitis Surgical History (Updated 01/08/22 @ 08:10 by Khalida Rodriguez RN) History of colonoscopy with polypectomy (03/05/16) History of colonoscopy with polypectomy (2009) Hx of bilateral cataract extraction Hx of tonsillectomy Family History Father Hypertension Cardiac disorder Congestive heart failure Mother No problems noted. Brother Colon cancer Social History household members: spouse Smoking Status: Former smoker alcohol intake: current substance use type: does not use Discharge Plan Discharge Plan Patient Disposition: Home Provider Discharge Comment: -Okay to shower tomorrow. -Do not submerge wounds in water until seen in follow-up. -No lifting >20 lbs x 4 weeks. -Walking only for exercise for 4 weeks. -No driving while taking narcotics. Discharge orders & Medications Prescriptions: New ibuprofen 200 mg tablet 400 mg PO Q6H Qty: 60 0RF oxycodone 5 mg tablet 5 mg PO Q6H PRN (Reason: pain) Qty: 20 0RF acetaminophen [Tylenol] 325 mg capsule 650 mg PO QID PRN (Reason: pain) Qty: 60 0RF Continued simvastatin 40 mg tablet 40 mg PO QDAY Qty: 90 0RF Rx Instructions: PT WILL NEED TO BE SEEN BEFORE NEXT FILL 10/22/21 furosemide 40 mg tablet 40 mg PO BID Qty: 180 0RF Hold Instructions: Hold to verify that he is still symptomatic felodipine 5 mg tablet extended release 24 hr 5 mg PO DAILY Qty: 90 0RF Rx Instructions: swallow whole; do not crush/chew; administer on an empty stomach, if possible /PT WILL NEED TO BE SEEN BEFORE NEXT FILL 10/29/21 atenolol 100 mg tablet 100 mg PO QDAY Qty: 90 0RF Rx Instructions: PT WILL NEED TO BE SEEN BEFORE NEXT FILL 10/29/21 losartan 100 mg tablet 100 mg PO DAILY Qty: 90 3RF potassium chloride 20 mEq tablet extended release 20 meq PO DAILY Qty: 90 3RF Follow up/Referrals: Robin Simeon MD [Physician] - 2 Weeks Diet/Activity/Treatments Diet: Diet as Tolerated Skin/Wound/Dressing Care Report to your healthcare provider any signs of infection, such as:: chills, fever, increased pain, unusual drainage and unusual redness Visit Report/Discharge Packet Instructions: DI for Colectomy, DI for Laparoscopy, DI for Constipation, DI for Acute Pain -- Adult, How to Prevent Falls, DI for Taking Pain Medication, [facility]: Wound Care Discharge Data Primary Care Provider: Edgardo Reyes VTE Deep Vein Thrombosis/Pulmonary Embolism Present on Admission: No
--- NOTE | 2022-01-18 15:07 | CM.DPC ---
DCP Note: P: Per MD, pt medically stable for discharge today. Pt to discharge home via spouse POV. Adela Reyes RN/DCP
--- NOTE | 2022-01-18 16:08 | PC.NURSE ---
Discharge: Pt feels ready to d/c to home. D/c instructions reviewed. Vicodin has been effective for pain. Tolerates diet w/out problems. Vds w/out diff. Up in room with and with out walker, gait is steady. Wound stapled, edges approx. no drainage. Wound care instructions given. Spouse here for teaching. Questions answered. Pt d/c to home via auto w/spouse.
== END 2022-01-18 15:25 | disposition home or self-care (01) | DRG 330 ==
PROVIDERS: Admitting Provider Surgery; PCP Student in an Organized Health Care Education/Training Program; Referring Provider Surgery; Visit Provider Surgery
PROC: 0DTE0ZZ Resection of Large Intestine, Open Approach (ICD-10-PCS; principal; 2022-01-16 13:15)
DX: C18.0 Malignant neoplasm of cecum (principal); C77.2 Secondary and unspecified malignant neoplasm of intra-abdominal lymph nodes; K66.0 Peritoneal adhesions (postprocedural) (postinfection); E78.5 Hyperlipidemia, unspecified; I10 Essential (primary) hypertension; Z20.822 Contact with and (suspected) exposure to COVID-19; Z87.891 Personal history of nicotine dependence
CPT/HCPCS: 00790; 44205; 71260; 74177; 80048; 85025; 87635; C9803; C9290; J0295; J1650; J2250; J2405; J3010; Q9967

== ENCOUNTER 2022-02-01 20:35 | Observation (INO) | payer MEDICARE, SELFPAY ==
[2022-01-16 18:57] VITALS: BMI 29.2
[2022-02-01 20:46] VITALS: BP 131/65; PULSE 75; RESP 24; TEMP 36.5; O2SAT 94; BMI 28.5
--- NOTE | 2022-02-01 21:17 | ED_ITS ---
HPI - Abdominal Pain General Chief Complaint: Abdominal Pain Stated Complaint: Bowel resection post 2 weeks, ABD pain Time Seen by Provider: 02/01/22 21:09 Source: patient Mode of arrival: Ambulatory Limitations: no limitations History of Present Illness HPI narrative: This is a 81-year-old male with history of hypertension and dyslipidemia who had a cecal mass with laparoscopic-assisted right hemicolectomy on 01/16/2022. Patient states he was discharged the following Friday was having regular bowel movements. He states his pain was continuing to improve. He states starting Friday, 4 days ago he started having vomiting 6 times on Friday night and persisting with dry heaves into today. He is had difficulty keeping down fluids. He states he has been having a lot of abdominal cramping does not really describe it as pain. He feels like his abdomen is more bloated. He has not had a bowel movement the past 2 days. He is had minimal flatus. Patient states his incision does not seem to be more erythematous or having increasing signs of infection. Patient denies any back or flank pain. He denies chest pain or new shortness of breath. He states urine output seems like a little bit less but no dysuria, urgency or frequency. No new swelling in extremities. Patient was taking oxycodone but stopped taking this at the beginning of the week. He has been continuing to take Tylenol he is tried stool softeners, laxative with no improvement. Related Data Previous Rx's Medication Instructions Recorded losartan 100 mg tablet 100 mg PO DAILY #90 tabs 12/03/21 potassium chloride 20 mEq 20 meq PO DAILY #90 tabs 12/31/21 tablet,extended release acetaminophen 325 mg capsule 650 mg PO QID PRN pain #60 caps 01/18/22 (Tylenol) ibuprofen 200 mg tablet 400 mg PO Q6H #60 tabs 01/18/22 oxycodone 5 mg tablet 5 mg PO Q6H PRN pain #20 tabs 01/18/22 felodipine 5 mg tablet,extended 5 mg PO DAILY #90 tabs 01/22/22 release 24 hr furosemide 40 mg tablet 40 mg PO BID #180 tabs 01/22/22 atenolol 100 mg tablet 100 mg PO QDAY #90 tabs 01/28/22 simvastatin 40 mg tablet 40 mg PO QDAY #90 tabs 01/28/22 Allergies Allergy/AdvReac Type Severity Reaction Status Date / Time No Known Drug Allergies Allergy Verified 02/01/22 20:46 Review of Systems Review of Systems ROS Unobtainable: All systems reviewed & are unremarkable except as noted in HPI and below Patient History Medical History Chicken pox Chronic low back pain Colon polyps (2009) Dupuytren's contracture (09/28/13) Elevated LFTs Hyperlipidemia (1998) Hypertension (1977) Measles SERENITY (obstructive sleep apnea) Pain of right heel Ulcerative colitis Surgical History History of colonoscopy with polypectomy (03/05/16) History of colonoscopy with polypectomy (2009) Hx of bilateral cataract extraction Hx of tonsillectomy Family History Father Hypertension Cardiac disorder Congestive heart failure Mother No problems noted. Brother Colon cancer Social History household members: spouse Smoking Status: Former smoker alcohol intake: current substance use type: does not use Smoking Status: Former smoker alcohol intake frequency: 3 or more drinks per day Substance Use Type: does not use Exam Narrative Exam Narrative: GENERAL: Alert and oriented x three, male in mild distress HEENT: Head normocephalic, atraumatic, EOMI, pupils reactive, face symmetric, moist mucous membranes NECK: Supple, full range of motion CARDIOVASCULAR: Regular rate and rhythm without murmurs, rubs or gallops. RESPIRATORY: Breath sounds equal bilaterally, no wheezes rales or rhonchi. ABDOMEN: Soft, nontender. Patient is distended, has midline incision with 3 small laparoscopic incisions, clean dry and intact there is very minimal erythema along the edge, the portion of the midline incision at the umbilicus has had magali removed all other magali are in place it appears to be healing by secondary intention with pink granulation tissue, no purulent drainage or foul smell. Normoactive bowel sounds all 4 quadrants. No guarding or rebound, rigidity, no mass. : No CVA tenderness EXTREMITIES: Normal range of motion, no clubbing or edema. Neurovascularly intact NEUROLOGICAL: Cranial nerves II through XII grossly intact. Moving all extremities SKIN: Warm, dry, no petechiae, no rashes or lesions. Initial Vital Signs Initial Vital Signs: Vital Signs Temperature 97.7 F 02/01/22 20:46 Pulse Rate 75 02/01/22 20:46 Respiratory Rate 24 02/01/22 20:46 Blood Pressure 131/65 02/01/22 20:46 Pulse Oximetry 94 02/01/22 20:46 Oxygen Delivery Method 02/01/22 20:46 Course Orders Ordered: ED Orders 02/01/22 20:55 Complete Blood Count AUTO DIFF Stat Comprehensive Metabolic Panel Stat Lipase Stat 02/01/22 21:07 EKG-12 Lead Stat 02/01/22 21:25 CT abdomen pelvis w con Stat 02/01/22 21:30 COVID19 -Nasal RAPID/Pre-Proc Stat Sodium Chloride (Normal Saline 0.9%) 1,000 mls @ 100 mls/hr IV CONT VICKI Discontinued Medications Sodium Chloride (Normal Saline 0.9%) 1,000 mls @ 1,000 mls/hr IV BOLUS ONE Stop: 02/01/22 22:24 Last Infusion: 02/01/22 23:22 Dose: 1,000 mls/hr Documented By: Admin: 02/01/22 21:37 Dose: 1,000 mls/hr Documented By: EB Consultations Consultation #1: Dr. Brown, asked for admission to general surgery under Dr. Simeon. Vital Signs Vital signs: Vital Signs - 8 hr 02/01/22 20:46 02/01/22 22:41 Temperature 97.7 F Pulse Rate 75 75 Respiratory Rate 24 18 Blood Pressure 131/65 128/62 Pulse Oximetry 94 97 Oxygen Delivery Method Room Air Room Air MDM - Abdominal Pain Lab Data Result diagrams: 02/01/22 20:55 02/01/22 20:55 Labs: Lab Results 02/01/22 02/01/22 02/01/22 Range/Units 20:55 20:55 21:30 WBC 13.6 H (4.5-11.0) X10^3/uL RBC 3.99 L (4.5-5.9) X10^6/uL Hgb 13.4 L (13.5-17.5) g/dL Hct 39.7 L (41-53) % MCV 99.5 (80-100) fL MCH 33.5 (26-34) PG MCHC 33.7 (30-36) % RDW 12.6 (11.6-14.8) % Plt Count 380 (150-400) X10^3/uL Neut % (Auto) 79.0 H (50-75) % Lymph % (Auto) 7.0 L (25-40) % [place] % (Auto) 13.3 (3-14) % Eos % (Auto) 0.5 L (2-4) % Baso % (Auto) 0.2 (0-2) % Neut # (Auto) 58708 H (9197-3077) /uL Lymph # (Auto) 1000 L (9426-6974) /uL [place] # (Auto) 1800 H (0-900) /uL Eos # (Auto) 100 (0-450) /uL Baso # (Auto) 0 (0-100) /uL Sodium 138 (137-145) mmol/L Potassium 3.7 (3.4-5.1) mmol/L Chloride 98 (98-107) mmol/L Carbon Dioxide 30 (22-32) mmol/L BUN 20 (9-20) mg/dL Creatinine 1.09 (0.66-1.25) mg/dL Estimated GFR > 60 (>60) mL/min BUN/Creatinine Ratio 18.3 (6-22) Glucose 137 H (80-110) mg/dL Calcium 8.8 (8.4-10.2) mg/dL Total Bilirubin 2.2 H (0.2-1.3) mg/dL AST 32 (17-59) IU/L ALT 20 (<50) IU/L Alkaline Phosphatase 72 (38-126) U/L Total Protein 6.9 (6.3-8.2) g/dL Albumin 3.9 (3.5-5.0) g/dL Globulin 3.0 (1.7-4.1) g/dL Albumin/Globulin Ratio 1.3 (1.0-2.8) Lipase 98 (23-300) U/L SARS-CoV-2 (PCR) Negative (Negative) Imaging Data CT scan - abdomen/pelvis: Radiologist's Impression: Close Abdomen/Pelvis CT (Signed) Deyvi Parada - 02/01/[address] [address] [address] Scan Report Signed Patient: Chay Carpenter MR#: [id number] : 1940 Acct:[id number] Age/Sex: 81 / M Date of Service: 02/01/22 Loc: ED Accession Number: [id number] ?? Procedure: CT abdomen pelvis w con Ordering Provider: Luz Odom D.O. PROCEDURE:? CT ABDOMEN PELVIS W CON ? INDICATIONS:? 7/ bowel resection, +v x 3 days, no BM x2 ? TECHNIQUE:? After the administration of IV contrast, axial sections were acquired from the lung bases to the pubic symphysis.? Coronal and sagittal reformats were performed.? For radiation dose reduction, the following was used:? automated exposure control, adjustment of mA and/or kV according to patient size. ? COMPARISON:? [facility], CT, CT CHEST ABD PEL W CON, 01/16/2022, 12:02. ? FINDINGS:? Image quality:? Excellent.? ? Lung bases:? There is subpleural reticulation in the lung bases consistent with chronic interstitial lung disease.? ? Heart:? Heart is normal in size.? There is mild concentric wall thickening of the visualized distal esophagus.? A small hiatal hernia is present. ? ? ABDOMEN: Liver:? No mass lesion. Gallbladder:? Within normal limits without calcified gallstones.? ? Biliary ducts:? No biliary ductal dilatation.? ? Pancreas:? Unremarkable.? ? Spleen:? Normal in size.? ? Adrenal Glands:? No adrenal nodules.? ? Kidneys and Ureters:? No hydronephrosis.? ? ? Stomach and Bowel:? The stomach is partially distended.? There is diffuse dilatation of the small bowel , measuring up to 4.5 cm, with scattered air-fluid levels.? There is an associated transition point at the ileocolic anastomosis where there is mild bowel wall thickening with small bowel fecalization in the distal ileum.? Postsurgical changes are demonstrated status post right hemicolectomy.? The colon is nondistended. Peritoneum:? There is a small amount of intraperitoneal free fluid which is nonspecific and may represent sequelae of recent surgery.? Nonspecific fat stranding is also redemonstrated within the mesentery.? No free air.? ? Ventral Wall: ? Postsurgical changes are demonstrated within the ventral abdominal wall with a midline surgical incision scar.? No hernia.? Abdominal Nodes:? No retroperitoneal or mesenteric adenopathy by size criteria.? Vessels:? Aorta and inferior vena cava are normal in size.? ? PELVIS: Pelvic Organs:? There is moderate enlargement of the prostate..? ? Bladder:? Unremarkable.? ? Pelvic Nodes: No enlarged lymph nodes.? Miscellaneous: No inguinal hernias are seen. ? ? ? Bones:? Visualized osseous structures demonstrate no suspicious focal lesions.? ? IMPRESSION:? ? 1. Dilated loops of small bowel with a transition point at the ileocolic anastomosis where there is mild associated wall thickening.? The findings are compatible with a small-bowel obstruction, likely due to postsurgical edema or stricture at the anastomosis. ? 2. Small amount of intraperitoneal free fluid is nonspecific and may be related to recent surgery versus reactive changes secondary to obstruction. ? 3. Mild concentric wall thickening within the visualized distal esophagus consistent with a nonspecific esophagitis.? ? ? Dictated by: Deyvi Parada M.D. on 02/01/2022 at 22:29 ? ? Approved by: Deyvi Parada M.D. on 02/01/2022 at 22:37?? ECG Data Attestation: I personally reviewed and interpreted this ECG as follows: Interpretation: Sinus rhythm rate of 77 VT 182 QRS 82 and QTC 427. No acute ST elevation or depression noted. No priors available for comparison. [facility] Narrative Medical decision making narrative: This is a 81-year-old male presents with complaint of increasing abdominal cramping, persistent vomiting and no bowel movements for the past several days. Patient does appear distended has bowel sounds present. His incision appears to be healing appropriately. Patient has a mildly elevated white count, hemoglobin 13 actually improved from prior on January 17, leftward shift but also improved and renal function electrolytes are appropriate, bilirubin is elevated but LFTs are otherwise normal with negative lipase. CT shows bowel obstruction which appears to be at the site of the anastomosis. Spoke with Dr. Brown from General surgery who accepts for admission but asked that patient be placed under Dr. Simeon is name. He is comfortable with holding off on an NG tube at this time unless patient begins to actively vomit. Discharge Plan Departure Patient Disposition: Admitted as Observation Clinical Impression: Small bowel obstruction, S/P colon resection Admit Date/Time: 02/01/22 23:09 Admit Provider: Robin Simeon
[2022-02-01 21:25] LABS: Add Manual Diff / Slide Review NO; Basophils Absolute Auto 0 /uL (0-100); Basophils Percent Auto 0.2 % (0-2); Eosinophils Absolute Auto 100 /uL (0-450); Eosinophils Percent Auto 0.5 % (2-4); Hematocrit 39.7 % (41-53); Hemoglobin 13.4 g/dL (13.5-17.5); Lymphocytes Absolute Auto 1000 /uL (1100-4500); Mean Corpuscular HGB Conc 33.7 % (30-36); Mean Corpuscular Hemoglobin 33.5 PG (26-34); Mean Corpuscular Volume 99.5 fL (80-100); Monocytes Absolute Auto 1800 /uL (0-900); Monocytes Percent Auto 13.3 % (3-14); Neutrophils Absolute Auto 10800 /uL (1500-7000); Platelet Count 380 X10^3/uL (150-400); Red Blood Cell Count 3.99 X10^6/uL (4.5-5.9); Red Cell Distribution Width 12.6 % (11.6-14.8); White Blood Cell Count 13.6 X10^3/uL (4.5-11.0)
--- NOTE | 2022-02-01 21:25 | DI.CT.S_ITS ---
PROCEDURE: CT ABDOMEN PELVIS W CON INDICATIONS: 01/16 bowel resection, +v x 3 days, no BM x2 TECHNIQUE: After the administration of IV contrast, axial sections were acquired from the lung bases to the pubic symphysis. Coronal and sagittal reformats were performed. For radiation dose reduction, the following was used: automated exposure control, adjustment of mA and/or kV according to patient size. COMPARISON: [facility], CT, CT CHEST ABD PEL W CON, 01/16/2022, 12:02. FINDINGS: Image quality: Excellent. Lung bases: There is subpleural reticulation in the lung bases consistent with chronic interstitial lung disease. Heart: Heart is normal in size. There is mild concentric wall thickening of the visualized distal esophagus. A small hiatal hernia is present. ABDOMEN: Liver: No mass lesion. Gallbladder: Within normal limits without calcified gallstones. Biliary ducts: No biliary ductal dilatation. Pancreas: Unremarkable. Spleen: Normal in size. Adrenal Glands: No adrenal nodules. Kidneys and Ureters: No hydronephrosis. Stomach and Bowel: The stomach is partially distended. There is diffuse dilatation of the small bowel , measuring up to 4.5 cm, with scattered air-fluid levels. There is an associated transition point at the ileocolic anastomosis where there is mild bowel wall thickening with small bowel fecalization in the distal ileum. Postsurgical changes are demonstrated status post right hemicolectomy. The colon is nondistended. Peritoneum: There is a small amount of intraperitoneal free fluid which is nonspecific and may represent sequelae of recent surgery. Nonspecific fat stranding is also redemonstrated within the mesentery. No free air. Ventral Wall: Postsurgical changes are demonstrated within the ventral abdominal wall with a midline surgical incision scar. No hernia. Abdominal Nodes: No retroperitoneal or mesenteric adenopathy by size criteria. Vessels: Aorta and inferior vena cava are normal in size. PELVIS: Pelvic Organs: There is moderate enlargement of the prostate.. Bladder: Unremarkable. Pelvic Nodes: No enlarged lymph nodes. Miscellaneous: No inguinal hernias are seen. Bones: Visualized osseous structures demonstrate no suspicious focal lesions. IMPRESSION: 1. Dilated loops of small bowel with a transition point at the ileocolic anastomosis where there is mild associated wall thickening. The findings are compatible with a small-bowel obstruction, likely due to postsurgical edema or stricture at the anastomosis. 2. Small amount of intraperitoneal free fluid is nonspecific and may be related to recent surgery versus reactive changes secondary to obstruction. 3. Mild concentric wall thickening within the visualized distal esophagus consistent with a nonspecific esophagitis. Dictated by: Deyvi Parada M.D. on 02/01/2022 at 22:29 Approved by: Deyvi Parada M.D. on 02/01/2022 at 22:37
[2022-02-01 21:27] LABS: Alanine Aminotransferase 20 IU/L (<50); Albumin 3.9 g/dL (3.5-5.0); Albumin Globulin Ratio 1.3 (1.0-2.8); Alkaline Phosphatase 72 U/L (38-126); Aspartate Aminotransferase 32 IU/L (17-59); BUN Creatinine Ratio 18.3 (6-22); Bilirubin Total 2.2 mg/dL (0.2-1.3); Blood Urea Nitrogen 20 mg/dL (9-20); Calcium 8.8 mg/dL (8.4-10.2); Carbon Dioxide 30 mmol/L (22-32); Chloride 98 mmol/L (98-107); Estimated Glomerular Filt Rate > 60 mL/min (>60); Glucose 137 mg/dL (80-110); HEMOLYSIS < 15 (0-50); Lipase 98 U/L (23-300); Potassium 3.7 mmol/L (3.4-5.1); Sodium 138 mmol/L (137-145); Total Protein 6.9 g/dL (6.3-8.2)
[2022-02-01] MEDS: SODIUM CHLORIDE 0.9% 1,000 ML 1000 ML IV (21:37)
[2022-02-01 22:01] LABS: COVID19 -Nasal RAPID Negative (Negative)
[2022-02-01 22:41] VITALS: BP 128/62; PULSE 75; RESP 18; O2SAT 97
[2022-02-01 23:14] VITALS: BMI 26.9
[2022-02-01 23:40] VITALS: BP 123/59; PULSE 73; RESP 18; TEMP 37.2; O2SAT 97
[2022-02-02] MEDS: SODIUM CHLORIDE 0.9% 1,000 ML 100 ML IV (01:00)
[2022-02-02 04:26] VITALS: BP 149/68; PULSE 81; RESP 15; TEMP 36.4; O2SAT 96
--- NOTE | 2022-02-02 08:12 | PC.NURSE ---
Assess- Patient is alert and oriented x4. He denies abdominal pain but is distended. Patient states that he has had several small bowel movements through the night. He has a mid line incision that hs healing with magali intact. He has a scabbed area near his navel that is healing. to see patient today, will ask if he wants the magali removed.
--- NOTE | 2022-02-02 11:12 | PM.HP.1 ---
History of Present Illness History of Present Illness Date Patient Seen: 02/02/22 Time Patient Seen: 11:12 Chief complaint: Bowel resection post 2 weeks, ABD pain Narrative: Tanmay is now about 2 and half weeks post up from his laparoscopic-assisted right hemicolectomy. The path showed a T3 N1 cancer. He was doing well until about 4 days ago when he became distended, nauseous and started vomiting. He stopped having bowel movements and was passing minimal flatus. He did not experience any abdominal tenderness. He came to emergency room last night where a CT scan was obtained and appeared show a partial small-bowel obstruction with a transition point at the anastomosis. The anastomosis appeared to be somewhat edematous. Since coming up to his room he has felt better. He has passed some bowel movements. He denies nausea or abdominal pain. Patient History Medical History Chicken pox Chronic low back pain Colon polyps (2009) Dupuytren's contracture (09/28/13) Elevated LFTs Hyperlipidemia (1998) Hypertension (1977) Measles SERENITY (obstructive sleep apnea) Pain of right heel Ulcerative colitis Surgical History History of colonoscopy with polypectomy (03/05/16) History of colonoscopy with polypectomy (2009) Hx of bilateral cataract extraction Hx of tonsillectomy Family & Social History Family History Father Hypertension Cardiac disorder Congestive heart failure Mother No problems noted. Brother Colon cancer Social History: household members spouse Prior Living Arrangements House Safety & Behavioral: Feels Safe in Current Yes Environment Been Physically Hurt or No Threatened By a Person Tobacco & Substance use: Tobacco type cigarettes Smoking Status Former smoker alcohol intake current alcohol intake frequency 3 or more drinks per day Substance Use Type does not use Meds Home Medications and Allergies Home Medications Medication Instructions Recorded Confirmed Type losartan 100 mg tablet 100 mg PO DAILY #90 tabs 12/03/21 02/02/22 Rx potassium chloride 20 mEq 20 meq PO DAILY #90 tabs 12/31/21 02/02/22 Rx tablet,extended release acetaminophen 325 mg capsule 650 mg PO QID PRN pain #60 caps 01/18/22 02/02/22 Rx (Tylenol) ibuprofen 200 mg tablet 400 mg PO Q6H #60 tabs 01/18/22 02/02/22 Rx oxycodone 5 mg tablet 5 mg PO Q6H PRN pain #20 tabs 01/18/22 02/02/22 Rx felodipine 5 mg tablet,extended 5 mg PO DAILY #90 tabs 01/22/22 02/02/22 Rx release 24 hr furosemide 40 mg tablet 40 mg PO BID #180 tabs 01/22/22 02/02/22 Rx atenolol 100 mg tablet 100 mg PO QDAY #90 tabs 01/28/22 02/02/22 Rx simvastatin 40 mg tablet 40 mg PO QDAY #90 tabs 01/28/22 02/02/22 Rx Allergies Allergy/AdvReac Type Severity Reaction Status Date / Time No Known Drug Allergies Allergy Verified 02/01/22 20:46 Exam Vital Signs (past 8 hours): - 02/02/22 04:26 Temperature 97.5 F L Pulse Rate 81 Respiratory Rate 15 Blood Pressure 149/68 H Pulse Oximetry 96 Oxygen Delivery Method Room Air Narrative Exam Narrative: No acute distress Abdomen is soft, moderately distended and nontender Incision is clean and dry with a small eschar in the central portion of the wound Objective Labs Result Diagrams: 02/01/22 20:55 02/01/22 20:55 Labs: Laboratory Results - last 24 hr 02/01/22 02/01/22 02/01/22 20:55 20:55 21:30 WBC 13.6 H RBC 3.99 L Hgb 13.4 L Hct 39.7 L MCV 99.5 MCH 33.5 MCHC 33.7 RDW 12.6 Plt Count 380 Neut % (Auto) 79.0 H Lymph % (Auto) 7.0 L Haywood % (Auto) 13.3 Eos % (Auto) 0.5 L Baso % (Auto) 0.2 Neut # (Auto) 66901 H Lymph # (Auto) 1000 L Haywood # (Auto) 1800 H Eos # (Auto) 100 Baso # (Auto) 0 Sodium 138 Potassium 3.7 Chloride 98 Carbon Dioxide 30 BUN 20 Creatinine 1.09 Estimated GFR > 60 BUN/Creatinine Ratio 18.3 Glucose 137 H Calcium 8.8 Total Bilirubin 2.2 H AST 32 ALT 20 Alkaline Phosphatase 72 Total Protein 6.9 Albumin 3.9 Globulin 3.0 Albumin/Globulin Ratio 1.3 Lipase 98 SARS-CoV-2 (PCR) Negative Assessment & Plan Assessment and plan (1) S/P colon resection: Status: Acute Plan The partial obstruction may be related to edema around the anastomosis and may have resolved. Will trial clear liquid diet this morning and advance to full liquids as tolerates. If he tolerates he may be able to discharge home tomorrow and stay on a pureed diet for the next 2 weeks. I discussed the path with him again and explained that his next step would be to talk with the medical oncologists and if chemotherapy is advised and chosen I would see him again for a port placement. I discussed the procedure, risks and benefits of Port-A-Cath placement. Time Spent With Patient Critical Care time: I spent a total of [] minutes of critical care time on this patient's care today; this time is exclusive of procedural time.
[2022-02-02 12:00] VITALS: BP 151/83; PULSE 74; RESP 16; TEMP 36.3; O2SAT 98
--- NOTE | 2022-02-02 12:15 | CM.DANOTE ---
Payor: Medicare, [facility] PCP: MD Amy Pt is a 81 y.o. M who was admitted on 02/01/22 for Abd Pain post bowel resection post 2 weeks. DCP met with pt this morning bedside and explained role. Pt confirms that he lives with his spouse, Josephine, in a 1 story house in [place]. Pt states that he still drives POV and denies any DME use. Pt states that he is independent and still active. Pt confirms that he has been doing well post op bowel resection until a couple days ago and developed n/v and cramping. Per Surgeon, pt with likely partial SBO that seems to be resolving and no surgical intervention needed at this time and will trial clears and then advance diet as tolerated with possible d/c to home tomorrow if medically stable. Pt denies any resources at this time. DCP did not identify any needs. White board updated. Plan: SW to follow closely for advancing diet and plan of home with spouse when medically stable and any further identified discharge planning needs. FRAN Morelos Discharge Planning/Care Management CM Discharge Assessment Start: 02/02/22 12:14 Freq: Status: Active Protocol: Document 02/02/22 12:14 BF (Rec: 02/02/22 12:15 BF [id number]) Discharge Planning Assessment Assigned Mixing Machine Tender Cork Rod FRAN Leavitt DPOA/Assigned Designee Name spouse Advance Directives? Yes Advance Directives on File No History Provided By Patient,Significant Other, Medical Record Has Patient been admitted in last 30 Yes days? Comment Recently admitted for bowel resection post op 2 weeks Prior Living Arrangements House Household Members spouse Type of transporation used prior to Drives own vehicle admit Independent with ADL's Yes Is patient alert and oriented? Yes Needs Assistance With Home Chores / Shopping Caregiver for Another No Barriers to Discharge No Discharge Plan Home Referrals Initiated None needed Additional Comment At this time Whiteboard Updated in Patient Room with Yes name and ext. # of Mixing Machine Tender Cork Rod Review Status In Process Please Provide Date Initial DC 02/02/22 Assessment Was Performed Next Review Type Continued Stay Review
[2022-02-02] MEDS: POTASSIUM CHLORIDE 20 MEQ TAB PO (14:26)
[2022-02-02 14:27] VITALS: BP 151/83; PULSE 74
[2022-02-02] MEDS: LOSARTAN 50 MG TABLET 100 MG PO (14:27)
[2022-02-02] MEDS: atenoloL 50 MG TABLET 100 MG PO (14:28)
[2022-02-02] MEDS: ENOXAPARIN 40 MG/0.4 ML SYRINGE SUBCUT (14:28)
[2022-02-02] MEDS: IBUPROFEN 400 MG TABLET PO (14:28)
[2022-02-02 18:00] VITALS: BP 125/61; PULSE 68; RESP 16; TEMP 36.2; O2SAT 95
[2022-02-02 20:27] VITALS: BP 149/70; PULSE 70; RESP 18; TEMP 36.2; O2SAT 96
[2022-02-02] MEDS: FUROSEMIDE 40 MG TABLET PO (21:32)
[2022-02-02] MEDS: ATORVASTATIN 20 MG TABLET PO (21:32)
[2022-02-02] MEDS: SODIUM CHLORIDE 0.9% FLUSH 10 ML IV (21:33)
[2022-02-03 00:32] VITALS: BP 137/57; PULSE 63; RESP 18; TEMP 36.6; O2SAT 98
[2022-02-03] MEDS: IBUPROFEN 400 MG TABLET PO (07:59)
[2022-02-03] MEDS: FUROSEMIDE 40 MG TABLET PO (08:00)
[2022-02-03] MEDS: atenoloL 50 MG TABLET 100 MG PO (08:00)
[2022-02-03 08:01] VITALS: BP 148/70; PULSE 68
[2022-02-03] MEDS: ENOXAPARIN 40 MG/0.4 ML SYRINGE SUBCUT (08:01)
[2022-02-03] MEDS: LOSARTAN 50 MG TABLET 100 MG PO (08:01)
[2022-02-03] MEDS: POTASSIUM CHLORIDE 20 MEQ TAB PO (08:01)
[2022-02-03] MEDS: AMLODIPINE 5 MG TABLET PO (08:22)
[2022-02-03] MEDS: SODIUM CHLORIDE 0.9% FLUSH 10 ML IV (08:22)
[2022-02-03 09:00] VITALS: BP 134/66; PULSE 75; RESP 18; TEMP 36.4; O2SAT 97
--- NOTE | 2022-02-03 10:02 | PM.PN.1 ---
Subjective Subjective Date Patient Seen: 02/03/22 Time Patient Seen: 10:03 Interval history: Tanmay has tolerated his diet and continues to have flatus. He has no complaints. Exam Vital Signs (past 8 hours): - 02/03/22 08:01 Pulse Rate 68 Blood Pressure 148/70 H Oxygen Delivery Method Room Air Oxygen Flow Rate 0 Narrative Exam Narrative: Abdomen soft, nontender Objective Labs Result Diagrams: 02/01/22 20:55 02/01/22 20:55 [facility] Medical History Chicken pox Chronic low back pain Colon polyps (2009) Dupuytren's contracture (09/28/13) Elevated LFTs Hyperlipidemia (1998) Hypertension (1977) Measles SERENITY (obstructive sleep apnea) Pain of right heel Ulcerative colitis Surgical History History of colonoscopy with polypectomy (03/05/16) History of colonoscopy with polypectomy (2009) Hx of bilateral cataract extraction Hx of tonsillectomy Family History Father Hypertension Cardiac disorder Congestive heart failure Mother No problems noted. Brother Colon cancer Social History household members: spouse Smoking Status: Former smoker alcohol intake: current substance use type: does not use Assessment & Plan Assessment and plan (1) S/P colon resection: Status: Acute Plan The obstruction seems to have resolved. He will be discharged today and recommendations are to stay on a primarily liquid and pureed diet for another 2 weeks. Time Spent With Patient Critical Care time: I spent a total of [] minutes of critical care time on this patient's care today; this time is exclusive of procedural time.
--- NOTE | 2022-02-03 10:05 | P.DS_ITS ---
History of Present Illness History of Present Illness Chief complaint: Bowel resection post 2 weeks, ABD pain Narrative: Tanmay is now about 2 and half weeks post up from his laparoscopic-assisted right hemicolectomy. The path showed a T3 N1 cancer. He was doing well until about 4 days ago when he became distended, nauseous and started vomiting. He stopped having bowel movements and was passing minimal flatus. He did not experience any abdominal tenderness. He came to emergency room last night where a CT scan was obtained and appeared show a partial small-bowel obstruction with a transition point at the anastomosis. The anastomosis appeared to be somewhat edematous. Since coming up to his room he has felt better. He has passed some bowel movements. He denies nausea or abdominal pain. Discharge Providers Provider Date of admission: 02/01/22 23:09 Discharge Date: 02/03/22 Primary care physician: Edgardo Reyes MD Discharge provider: Robin Simeon MD Summary Hospital Course Discharge Diagnosis: Small-bowel obstruction resolved Hospital Course: But was admitted for concern about a small-bowel obstruction near the anast omosis however his symptoms quickly resolved after he was admitted and he was started on a liquid diet. He was then advanced to a pureed diet which he tolerated with no obstructive symptoms. He was passing flatus. He was discharged home after his magali were removed. Exam Vital Signs (past 8 hours): - 02/03/22 08:01 Pulse Rate 68 Blood Pressure 148/70 H Oxygen Delivery Method Room Air Oxygen Flow Rate 0 Objective Labs Result Diagrams: 02/01/22 20:55 02/01/22 20:55 [facility] Medical History Chicken pox Chronic low back pain Colon polyps (2009) Dupuytren's contracture (09/28/13) Elevated LFTs Hyperlipidemia (1998) Hypertension (1977) Measles SERENITY (obstructive sleep apnea) Pain of right heel Ulcerative colitis Surgical History History of colonoscopy with polypectomy (03/05/16) History of colonoscopy with polypectomy (2009) Hx of bilateral cataract extraction Hx of tonsillectomy Family History Father Hypertension Cardiac disorder Congestive heart failure Mother No problems noted. Brother Colon cancer Social History household members: spouse Smoking Status: Former smoker alcohol intake: current substance use type: does not use Discharge Plan Discharge Plan Patient Disposition: Home Provider Discharge Comment: Stay on a liquid or pureed diet for 2 weeks. Discharge orders & Medications Prescriptions: Continued losartan 100 mg tablet 100 mg PO DAILY Qty: 90 3RF potassium chloride 20 mEq tablet extended release 20 meq PO DAILY Qty: 90 3RF felodipine 5 mg tablet extended release 24 hr 5 mg PO DAILY Qty: 90 2RF Rx Instructions: swallow whole; do not crush/chew; administer on an empty stomach, if possible furosemide 40 mg tablet 40 mg PO BID Qty: 180 2RF Hold Instructions: Hold to verify that he is still symptomatic simvastatin 40 mg tablet 40 mg PO QDAY Qty: 90 3RF atenolol 100 mg tablet 100 mg PO QDAY Qty: 90 3RF ibuprofen 200 mg tablet 400 mg PO Q6H Qty: 60 0RF oxycodone 5 mg tablet 5 mg PO Q6H PRN (Reason: pain) Qty: 20 0RF acetaminophen [Tylenol] 325 mg capsule 650 mg PO QID PRN (Reason: pain) Qty: 60 0RF Follow up/Referrals: Edgardo Reyes MD [Primary Care Provider] - Discharge Data Primary Care Provider: Edgardo Reyes Attending Provider: Robin Simeon
--- NOTE | 2022-02-03 10:45 | CM.DPC ---
DCP Discharge Home Per Surgeon, pt has tolerated clears and advancing diet and had bowel movement denies n/v or cramping and pt medically stable to discharge home today on purees for 2 weeks and outpt follow up and no barriers to discharge. Plan: Patient to d/c home today via spouse POV and outpt f/u. No further SW needs at this time. FRAN Morelos
== END 2022-02-03 09:35 | disposition home or self-care (01) ==
LOC: ED 22:55 → AC 23:11
PROVIDERS: Admitting Provider Surgery; Emergency Provider Emergency Medicine; PCP Student in an Organized Health Care Education/Training Program; Referring Provider Emergency Medicine; Visit Provider Surgery
DX: R10.9 Unspecified abdominal pain (principal); Z90.49 Acquired absence of other specified parts of digestive tract; D49.0 Neoplasm of unspecified behavior of digestive system; I10 Essential (primary) hypertension; E78.5 Hyperlipidemia, unspecified; Z20.822 Contact with and (suspected) exposure to COVID-19
CPT/HCPCS: 36415; 74177; 80053; 83690; 85025; 87635; 93005; 93010; 96360; 96361; 96372; 99217; 99218; 99284; C9803; G0378; J1650; Q9967

== ENCOUNTER → 2022-02-11 10:30 | Outpatient (CLI) | payer MEDICARE, SELFPAY ==
[2022-02-06 09:24] VITALS: BMI 26.9
[2022-02-11 11:07] LABS: COVID19 -Nasal RAPID Negative (Negative)
== END ==
PROVIDERS: PCP Student in an Organized Health Care Education/Training Program; Visit Provider Surgery
DX: Z20.822 Contact with and (suspected) exposure to COVID-19 (principal); Z01.812 Encounter for preprocedural laboratory examination
CPT/HCPCS: 87635; C9803

== ENCOUNTER 2022-02-12 14:10 | Day surgery (SDC) | payer MEDICARE, SELFPAY ==
[2022-02-06 09:24] VITALS: BMI 26.9
[2022-02-12] VITALS (7 sets, daily range): BP systolic 124–150; BP diastolic 55–86; PULSE 57–64; RESP 14–16; TEMP 35.9–36.2; O2SAT 96–100; BMI 26.4
--- NOTE | 2022-02-12 14:59 | PM.HP.1 ---
History of Present Illness History of Present Illness Date Patient Seen: 02/12/22 Time Patient Seen: 14:59 Chief complaint: SDC Narrative: Chay is a 81-year-old man with a recent diagnosis of colon cancer. He is planning to undergo chemotherapy next week. He is here today for his Port-A-Cath placement. Patient History Medical History (Updated 02/12/22 @ 15:00 by Robin Simeon MD) Chicken pox Chronic low back pain Colon polyps (2009) Dupuytren's contracture (09/28/13) Elevated LFTs Hyperlipidemia (1998) Hypertension (1977) Measles SERENITY (obstructive sleep apnea) Pain of right heel Ulcerative colitis Surgical History (Updated 02/12/22 @ 14:34 by Cirilo Rivera RN) H/O colectomy History of colonoscopy with polypectomy (03/05/16) History of colonoscopy with polypectomy (2009) Hx of bilateral cataract extraction Hx of tonsillectomy Family & Social History Family History Father Hypertension Cardiac disorder Congestive heart failure Mother No problems noted. Brother Colon cancer Social History: household members spouse Tobacco & Substance use: Tobacco type cigarettes Smoking Status Former smoker alcohol intake current alcohol intake frequency 3 or more drinks per day Substance Use Type does not use Meds Home Medications and Allergies Home Medications Medication Instructions Recorded Confirmed Type losartan 100 mg tablet 100 mg PO DAILY #90 tabs 12/03/21 02/12/22 Rx potassium chloride 20 mEq 20 meq PO DAILY #90 tabs 12/31/21 02/12/22 Rx tablet,extended release acetaminophen 325 mg capsule 650 mg PO QID PRN pain #60 caps 01/18/22 02/12/22 Rx (Tylenol) ibuprofen 200 mg tablet 400 mg PO Q6H #60 tabs 01/18/22 02/12/22 Rx felodipine 5 mg tablet,extended 5 mg PO DAILY #90 tabs 01/22/22 02/12/22 Rx release 24 hr furosemide 40 mg tablet 40 mg PO BID #180 tabs 01/22/22 02/12/22 Rx atenolol 100 mg tablet 100 mg PO QDAY #90 tabs 01/28/22 02/12/22 Rx simvastatin 40 mg tablet 40 mg PO QDAY #90 tabs 01/28/22 02/12/22 Rx fluorouracil 2.5 gram/50 mL 4,800 mg (96 mL) IV NOW 02/05/22 02/12/22 Rx intravenous solution CHEMOTHERAPY #1 device Allergies Allergy/AdvReac Type Severity Reaction Status Date / Time No Known Drug Allergies Allergy Verified 02/12/22 14:35 Exam Narrative Exam Narrative: Well-healed abdominal incisions Normal anatomy of the upper chest and neck Assessment & Plan Assessment and plan (1) Colon cancer: Qualifiers: Colon location: ascending Qualified Code(s): C18.2 - Malignant neoplasm of ascending colon Status: Acute Plan Chay is a 81-year-old man who has a recent diagnosis of colon cancer and the plan is to undergo chemotherapy. We reviewed the risks and benefits of Port-A-Cath placement he would like to proceed. Time Spent With Patient Critical Care time: I spent a total of [] minutes of critical care time on this patient's care today; this time is exclusive of procedural time.
[2022-02-12] MEDS: LACTATED RINGERS 1,000 ML 42 ML IV (15:04)
[2022-02-12] MEDS: CEFAZOLIN 2 GM IN 0.9 % NACL 100 ML IV (15:35)
--- NOTE | 2022-02-12 15:51 | SUR.OPER ---
Supine on padded OR bed, head on donut, arms padded and tucked at sides, legs uncrossed, safety belt at thigh, tape over blanket over lower legs .
[2022-02-12] MEDS: LIDOCAINE 1% W/EPI 20 ML INJ (15:59)
--- NOTE | 2022-02-12 16:13 | DI.RAD.S_ITS ---
PROCEDURE: XR CHEST 1V INDICATIONS: PORT A CATH PLACEMENT TECHNIQUE: One view of the chest was acquired. COMPARISON: [facility], CR, XR CHEST 2V, 11/07/2020, 14:37. FINDINGS: Surgical changes and devices: Right-sided Port-A-Cath is present distal tip projecting over the proximal SVC. Lungs and pleura: Mild increased interstitial opacities are present with blunting of the costophrenic angles bilaterally. No pneumothorax. Mediastinum: Mediastinal contours appear normal. Heart size is enlarged. Bones and chest wall: No suspicious bony lesions. Overlying soft tissues appear unremarkable. IMPRESSION: Right Port-A-Cath as above. Interstitial opacities are present suggestive of edema with trace costophrenic angle blunting possibly effusions. Dictated by: Lorrie Carter M.D. on 02/12/2022 at 17:46 Approved by: Lorrie Carter M.D. on 02/12/2022 at 17:47
--- NOTE | 2022-02-12 16:24 | P.OP_ITS ---
Operative Date/Time/Diagnoses Date of procedure: 02/12/22 Time of procedure: 16:24 Pre-op diagnosis: Colon cancer Post-op diagnosis: same Procedure & Clinicians Same procedure as scheduled: Yes Surgeon: Robin Simeon Operative Notes Procedure in detail: The patient was brought to the operating room, placed on the table in the supine position with the arms tucked. Ancef was administered. Anesthesia was induced via LMA. A time-out was performed. The right chest and neck were prepped and draped in the usual fashion. An ultrasound was used to identify the right internal jugular vein. The vein was noted to be patent. An image was saved and printed and placed in the chart. The right internal jugular vein was accessed via the Seldinger technique under ultrasound guidance. The guidewire was inserted into the superior vena cava. C-arm was used to confirm proper position of the guidewire in the superior vena cava and no ectopy was noted. The needle was removed and the wire was clamped to the drape. Next, a port pocket was created just inferior to the medial clavicle using a 15 blade scalpel. Dissection was carried down to the pectoral fascia. A subcutaneous pocket was created using a combination of cautery and blunt dissection. Next, the port which was primed with injectable saline, was secured to the fascia with 3-0 PDS sutures left untied and clamped. The neck incision was extended with an 11 blade scalpel to approximately 5 mm. The dilator and peel-away sheath were inserted over the wire without resistance. The catheter was passed from the neck incision to the chest incision in the subcutaneous tissue using the tunnelling device. The wire and dilator were then removed and the catheter inserted through the peel-away sheath to deliver it into the superior vena cava. The depth of the device was checked using the C-arm and the tip of the device was noted to be in the distal superior vena cava. The e xterior portion of the catheter was then trimmed and attached to the port using the strain relief collar. A final image showed good position of the catheter with no kinks. The port was then tucked into the subcutaneous pocket and the sutures were tied to secure the device. The port was then accessed using the Ambrose needle and it was noted that the device michelle and flushed easily without resistance. Approximately 4 mL of heparinized saline were injected into the device. The skin incisions were closed with 3-0 Vicryl and 4-0 Monocryl. Steri-Strips were applied patient was awakened and brought to recovery room EBL: 5 mL Ultrasound: The right internal jugular vein was patent. The right carotid artery was visualized adjacent to the vein. Venipuncture was visualized in real-time using the ultrasound. Fluoroscopy: The device was positioned appropriately with the distal end of the catheter near the atriocaval junction. There were no kinks in the catheter. Post-operative Condition: stable Disposition: PACU
--- NOTE | 2022-02-12 16:53 | SUR.PHASEI ---
1635: Notified Dr. Simeon awaiting discharge orders.
== END 2022-02-12 17:10 | disposition home or self-care (01) ==
PROVIDERS: PCP Student in an Organized Health Care Education/Training Program; Referring Provider Surgery; Visit Provider Surgery
PROC: (CPT 36561; principal; 2022-02-12 15:45)
DX: C18.9 Malignant neoplasm of colon, unspecified (principal); I10 Essential (primary) hypertension; E78.5 Hyperlipidemia, unspecified
CPT/HCPCS: 36561; 71045; 76000; C1788; J0690; J1100; J1644; J2405; J2704; J3010

== ENCOUNTER 2022-03-11 14:22 | Emergency (ER) | payer MEDICARE, SELFPAY ==
[2022-02-06 09:24] VITALS: BMI 26.9
[2022-03-11 15:08] VITALS: BP 113/55; PULSE 68; RESP 17; TEMP 36.7; O2SAT 96; BMI 25.7
--- NOTE | 2022-03-11 15:54 | ED_ITS ---
HPI - Abdominal Pain General Chief Complaint: Abdominal Pain Stated Complaint: Needs enema- sent by ONC Time Seen by Provider: 03/11/22 15:52 Source: patient Mode of arrival: Ambulatory History of Present Illness HPI narrative: Sent from Oncology because of severe constipation. His says that he is very very uncomfortable. I saw him briefly in the lobby. He is awake and alert. Related Data Previous Rx's Medication Instructions Recorded losartan 100 mg tablet 100 mg PO DAILY #90 tabs 12/03/21 potassium chloride 20 mEq 20 meq PO DAILY #90 tabs 12/31/21 tablet,extended release acetaminophen 325 mg capsule 650 mg PO QID PRN pain #60 caps 01/18/22 (Tylenol) ibuprofen 200 mg tablet 400 mg PO Q6H #60 tabs 01/18/22 felodipine 5 mg tablet,extended 5 mg PO DAILY #90 tabs 01/22/22 release 24 hr furosemide 40 mg tablet 40 mg PO BID #180 tabs 01/22/22 atenolol 100 mg tablet 100 mg PO QDAY #90 tabs 01/28/22 simvastatin 40 mg tablet 40 mg PO QDAY #90 tabs 01/28/22 fluorouracil 2.5 gram/50 mL 4,800 mg (96 mL) IV NOW 02/05/22 intravenous solution CHEMOTHERAPY #1 device ondansetron 4 mg disintegrating 4 mg PO Q4HR PRN Nausea #30 tabs 02/19/22 tablet ondansetron 4 mg disintegrating 4 mg PO Q4HR PRN Nausea #30 tabs 02/19/22 tablet prochlorperazine maleate 10 mg 10 mg PO Q6H PRN Nausea #30 tabs 02/19/22 tablet (Compazine) prochlorperazine maleate 10 mg 10 mg PO Q6H PRN Nausea #30 tabs 02/19/22 tablet (Compazine) tamsulosin 0.4 mg capsule 0.4 mg PO DAILY #30 caps 03/11/22 Allergies Allergy/AdvReac Type Severity Reaction Status Date / Time No Known Drug Allergies Allergy Verified 03/11/22 14:12 Patient History Medical History (Updated 03/11/22 @ 22:41 by Alida Fung MD) BPH loc w urin obs/LUTS Chicken pox Chronic low back pain Colon cancer Colon polyps (2009) Dupuytren's contracture (09/28/13) Elevated LFTs Hyperlipidemia (1998) Hypertension (1977) Measles SERENITY (obstructive sleep apnea) Pain of right heel Ulcerative colitis Surgical History H/O colectomy History of colonoscopy with polypectomy (03/05/16) History of colonoscopy with polypectomy (2009) Hx of bilateral cataract extraction Hx of tonsillectomy Family History Father Hypertension Cardiac disorder Congestive heart failure Mother No problems noted. Brother Colon cancer Social History household members: spouse Smoking Status: Former smoker alcohol intake: former substance use type: does not use Smoking Status: Former smoker alcohol intake frequency: 3 or more drinks per day Substance Use Type: does not use Exam Initial Vital Signs Initial Vital Signs: Vital Signs Temperature 98.1 F 03/11/22 15:08 Pulse Rate 68 03/11/22 15:08 Respiratory Rate 17 03/11/22 15:08 Blood Pressure 113/55 L 03/11/22 15:08 Pulse Oximetry 96 03/11/22 15:08 Oxygen Delivery Method 03/11/22 15:08 Course Orders Ordered: ED Orders 03/11/22 18:40 CT abdomen pelvis w con Stat 03/11/22 19:08 CBC Auto Diff [Complete Blood Count AUTO DIFF] Stat CMP [Comprehensive Metabolic Panel] Stat Lactate (Lactic Acid) Stat 03/11/22 21:30 UA Complete [Urinalysis and Microscopic] Stat Sodium Chloride (Normal Saline 0.9%) 1,000 mls @ 1,000 mls/hr IV BOLUS PRN PRN Reason: Fluid replacement Discontinued Medications Bisacodyl (Bisacodyl 10 Mg Supp) 10 mg IL NOW ONE Stop: 03/11/22 18:42 Last Admin: 03/11/22 20:21 Dose: 10 mg Documented By: KACEY Sodium Chloride (Normal Saline 0.9%) 500 mls @ 1,000 mls/hr IV BOLUS ONE Stop: 03/11/22 19:35 Last Admin: 03/11/22 20:21 Dose: Not Given Documented By: KACEY Lidocaine HCl (Lidocaine 2% (Glydo) 6 Ml Gel) 6 ml TOP NOW ONE Stop: 03/11/22 22:32 Last Admin: 03/11/22 22:52 Dose: 6 ml Tamsulosin HCl (Tamsulosin 0.4 Mg Capsule) 0.4 mg PO NOW ONE Stop: 03/11/22 22:32 Last Admin: 03/11/22 23:11 Dose: 0.4 mg Vital Signs Vital signs: Vital Signs - 8 hr 03/11/22 22:55 Pulse Rate 71 Blood Pressure 137/62 Pulse Oximetry 98 Oxygen Delivery Method Room Air MDM - Abdominal Pain Lab Data Result diagrams: 03/11/22 19:08 03/11/22 19:08 Labs: Lab Results 03/11/22 03/11/22 03/11/22 Range/Units 19:08 19:08 19:08 WBC 3.5 L (4.5-11.0) X10^3/uL RBC 3.49 L (4.5-5.9) X10^6/uL Hgb 11.7 L (13.5-17.5) g/dL Hct 33.3 L (41-53) % MCV 95.6 (80-100) fL MCH 33.6 (26-34) PG MCHC 35.1 (30-36) % RDW 12.8 (11.6-14.8) % Plt Count 266 (150-400) X10^3/uL Neut % (Auto) 61.1 (50-75) % Lymph % (Auto) 25.6 (25-40) % Phillips % (Auto) 10.3 (3-14) % Eos % (Auto) 2.5 (2-4) % Baso % (Auto) 0.5 (0-2) % Neut # (Auto) 2100 (5665-0535) /uL Lymph # (Auto) 900 L (3299-0687) /uL Phillips # (Auto) 400 (0-900) /uL Eos # (Auto) 100 (0-450) /uL Baso # (Auto) 0 (0-100) /uL Sodium 136 L (137-145) mmol/L Potassium 3.6 (3.4-5.1) mmol/L Chloride 104 (98-107) mmol/L Carbon Dioxide 25 (22-32) mmol/L BUN 24 H (9-20) mg/dL Creatinine 1.54 H (0.66-1.25) mg/dL Estimated GFR 46 L (>60) mL/min BUN/Creatinine Ratio 15.6 (6-22) Glucose 115 H (80-110) mg/dL Lactate 1.2 (0.7-2.1) mmol/L Calcium 8.5 (8.4-10.2) mg/dL Total Bilirubin 2.6 H (0.2-1.3) mg/dL AST 27 (17-59) IU/L ALT 21 (<50) IU/L Alkaline Phosphatase 63 (38-126) U/L Total Protein 6.7 (6.3-8.2) g/dL Albumin 3.5 (3.5-5.0) g/dL Globulin 3.2 (1.7-4.1) g/dL Albumin/Globulin Ratio 1.1 (1.0-2.8) Urine Color Urine Appearance Urine pH (4.5-8.0) Ur Specific Hankinson (1.000-1.035) Urine Protein (Negative) Urine Glucose (UA) (Negative) g/dL Urine Ketones (NEGATIVE) Urine Occult Blood (Negative) Urine Nitrate (Negative) Urine Bilirubin (NEGATIVE) Urine Urobilinogen (0.2) E.U./dL Ur Leukocyte Esterase (NEGATIVE) Urine RBC (0-5/HPF) Urine WBC (0-5/HPF) Urine Bacteria (None) Ur Culture Indicated? 03/11/22 Range/Units 21:30 WBC (4.5-11.0) X10^3/uL RBC (4.5-5.9) X10^6/uL Hgb (13.5-17.5) g/dL Hct (41-53) % MCV (80-100) fL MCH (26-34) PG MCHC (30-36) % RDW (11.6-14.8) % Plt Count (150-400) X10^3/uL Neut % (Auto) (50-75) % Lymph % (Auto) (25-40) % Phillips % (Auto) (3-14) % Eos % (Auto) (2-4) % Baso % (Auto) (0-2) % Neut # (Auto) (4039-1670) /uL Lymph # (Auto) (8486-7276) /uL Phillips # (Auto) (0-900) /uL Eos # (Auto) (0-450) /uL Baso # (Auto) (0-100) /uL Sodium (137-145) mmol/L Potassium (3.4-5.1) mmol/L Chloride (98-107) mmol/L Carbon Dioxide (22-32) mmol/L BUN (9-20) mg/dL Creatinine (0.66-1.25) mg/dL Estimated GFR (>60) mL/min BUN/Creatinine Ratio (6-22) Glucose (80-110) mg/dL Lactate (0.7-2.1) mmol/L Calcium (8.4-10.2) mg/dL Total Bilirubin (0.2-1.3) mg/dL AST (17-59) IU/L ALT (<50) IU/L Alkaline Phosphatase (38-126) U/L Total Protein (6.3-8.2) g/dL Albumin (3.5-5.0) g/dL Globulin (1.7-4.1) g/dL Albumin/Globulin Ratio (1.0-2.8) Urine Color Yellow Urine Appearance Clear Urine pH 6.5 (4.5-8.0) Ur Specific Hankinson <=1.005 (1.000-1.035) Urine Protein Negative (Negative) Urine Glucose (UA) Negative (Negative) g/dL Urine Ketones Negative (NEGATIVE) Urine Occult Blood 1+ H (Negative) Urine Nitrate Negative (Negative) Urine Bilirubin Negative (NEGATIVE) Urine Urobilinogen 0.2 (0.2) E.U./dL Ur Leukocyte Esterase Negative (NEGATIVE) Urine RBC 0-1/hpf (0-5/HPF) Urine WBC 0-1/hpf (0-5/HPF) Urine Bacteria None seen (None) Ur Culture Indicated? Cult not indicated Discharge Plan Departure Patient Disposition: Home Clinical Impression: BPH loc w urin obs/LUTS, Colon cancer, Elevated serum creatinine Instructions: How to Care for Your Wynne Catheter -- Male Activity Restrictions/Additional Instructions: Thank you for coming in today It turns out that you are not constipated. It turns out that your prostate is more swollen likely from the recent surgery and chemotherapy and is not letting you empty your bladder. You had a very distended bladder and I believe that is what was causing your symptoms. We have placed a Wynne catheter and you had almost 1700 cc of urine come out. We have should you how to switch from a leg bag to the bigger bag. If you do have any bladder spasm as your bladder get used to a more normal shape and size, Tylenol can be helpful Please call our urology office to schedule a follow-up for acute urinary retention with Wynne catheter placement in the emergency department Please take Flomax 1 tablet daily unless directed differently by either the urologist or your oncologist. The prescription was electronically transmitted to [facility]. I wish you the best Prescriptions: New tamsulosin 0.4 mg capsule 0.4 mg PO DAILY Qty: 30 2RF No Action losartan 100 mg tablet 100 mg PO DAILY Qty: 90 3RF potassium chloride 20 mEq tablet extended release 20 meq PO DAILY Qty: 90 3RF felodipine 5 mg tablet extended release 24 hr 5 mg PO DAILY Qty: 90 2RF Rx Instructions: swallow whole; do not crush/chew; administer on an empty stomach, if possible furosemide 40 mg tablet 40 mg PO BID Qty: 180 2RF Hold Instructions: Hold to verify that he is still symptomatic simvastatin 40 mg tablet 40 mg PO QDAY Qty: 90 3RF atenolol 100 mg tablet 100 mg PO QDAY Qty: 90 3RF ibuprofen 200 mg tablet 400 mg PO Q6H Qty: 60 0RF acetaminophen [Tylenol] 325 mg capsule 650 mg PO QID PRN (Reason: pain) Qty: 60 0RF fluorouracil 2.5 gram/50 mL Solution 4,800 mg IV NOW Qty: 1 0RF Label Comments: pre ordered for next week Rx Instructions: continuous infusion over 46 hours prochlorperazine maleate [Compazine] 10 mg tablet 10 mg PO Q6H PRN (Reason: Nausea) Qty: 30 0RF ondansetron 4 mg tablet,disintegrating 4 mg PO Q4HR PRN (Reason: Nausea) Qty: 30 0RF prochlorperazine maleate [Compazine] 10 mg tablet 10 mg PO Q6H PRN (Reason: Nausea) Qty: 30 3RF ondansetron 4 mg tablet,disintegrating 4 mg PO Q4HR PRN (Reason: Nausea) Qty: 30 3RF Referrals: Edgardo Reyes MD [Primary Care Provider] -
--- NOTE | 2022-03-11 18:32 | ED_ITS ---
HPI - Abdominal Pain General Chief Complaint: Abdominal Pain Stated Complaint: Needs enema- sent by ONC Time Seen by Provider: 03/11/22 15:52 Source: patient Mode of arrival: Ambulatory History of Present Illness HPI narrative: This is a 81-year-old male with history of colon cancer and a cecum mass who is currently receiving chemotherapy, states he has received 4 infusions so far. Patient has a history of BPH, hyperlipidemia, alcohol consumption, small-bowel obstruction and presents to the emergency department today for 3 days of co nstipation, states he had chills and hot and cold sensation 3 days ago not had this any longer. States that has bright red blood when he wipes his anus for. He states that he feels like he has hard stool his rectum but can not get it out. He denies any nausea vomiting, upper abdominal pain or weakness. He states he has been taking docusate, bisacodyl and MiraLax without improvement adequate bowel movement. Patient has had 3 small pellet stools in the emergency department and states that he has gained back some of his rectal tone which he does not have much of. Related Data Previous Rx's Medication Instructions Recorded losartan 100 mg tablet 100 mg PO DAILY #90 tabs 12/03/21 potassium chloride 20 mEq 20 meq PO DAILY #90 tabs 12/31/21 tablet,extended release acetaminophen 325 mg capsule 650 mg PO QID PRN pain #60 caps 01/18/22 (Tylenol) ibuprofen 200 mg tablet 400 mg PO Q6H #60 tabs 01/18/22 felodipine 5 mg tablet,extended 5 mg PO DAILY #90 tabs 01/22/22 release 24 hr furosemide 40 mg tablet 40 mg PO BID #180 tabs 01/22/22 atenolol 100 mg tablet 100 mg PO QDAY #90 tabs 01/28/22 simvastatin 40 mg tablet 40 mg PO QDAY #90 tabs 01/28/22 fluorouracil 2.5 gram/50 mL 4,800 mg (96 mL) IV NOW 02/05/22 intravenous solution CHEMOTHERAPY #1 device prochlorperazine maleate 10 mg 10 mg PO Q6H PRN Nausea #30 tabs 02/19/22 tablet (Compazine) prochlorperazine maleate 10 mg 10 mg PO Q6H PRN Nausea #30 tabs 02/19/22 tablet (Compazine) tamsulosin 0.4 mg capsule 0.4 mg PO DAILY #30 caps 03/11/22 Allergies Allergy/AdvReac Type Severity Reaction Status Date / Time No Known Drug Allergies Allergy Verified 03/14/22 10:05 Review of Systems Review of Systems Narrative: Review of systems is negative for acute abnormalities unless otherwise noted in HPI Patient History Medical History (Updated 03/14/22 @ 10:35 by Edgardo Reyes MD) BPH loc w urin obs/LUTS Chicken pox Chronic low back pain Colon cancer Colon polyps (2009) Dupuytren's contracture (09/28/13) Elevated LFTs Hyperlipidemia (1998) Hypertension (1977) Measles SERENITY (obstructive sleep apnea) Pain of right heel Ulcerative colitis Surgical History (Updated 03/14/22 @ 10:35 by Edgardo Reyes MD) H/O colectomy History of colonoscopy with polypectomy (03/05/16) History of colonoscopy with polypectomy (2009) Hx of bilateral cataract extraction Hx of tonsillectomy S/P colon resection Family History Father Hypertension Cardiac disorder Congestive heart failure Mother No problems noted. Brother Colon cancer Social History household members: spouse Smoking Status: Former smoker alcohol intake: former substance use type: does not use Smoking Status: Former smoker alcohol intake frequency: 3 or more drinks per day Substance Use Type: does not use Exam Narrative Exam Narrative: Reviewed vitals signs and nursing notes. General: cooperative, comfortable, in no acute distress, well groomed HEENT: symmetrical facial expressions, moist mucous membranes Cardiovascular: regular rate and rhythm, no peripheral edema, warm extremities Respiratory: normal effort, able to speak in complete sentences, without wh eezing, stridor, or abnormal breath sounds. No retractions or tachypnea. GI: abdomen soft, nontender to palpation, nondistended, without masses, rebound tenderness or exquisite tenderness with exam, guaiac stool is negative, rectal exam shows excoriation, edema and tenderness of his anus, tenderness with rectal exam, patient states he has been using hydrocortisone on his anus for the pain. Decreased rectal tone, no exquisite tenderness over his prostate : Patient states that when he falls asleep he has some urine dribbling MSK: moves all extremities, neurovascularly intact, no weakness, normal tone Skin: brisk capillary refill, without pallor or erythema Neuro: normal speech and cognition, A&O x3, ambulatory, clear speech Psych: mental status is grossly normal, congruent mood, normal affect, pleasant and cooperative Initial Vital Signs Initial Vital Signs: Vital Signs Temperature 98.1 F 03/11/22 15:08 Pulse Rate 68 03/11/22 15:08 Respiratory Rate 17 03/11/22 15:08 Blood Pressure 113/55 L 03/11/22 15:08 Pulse Oximetry 96 03/11/22 15:08 Oxygen Delivery Method 03/11/22 15:08 Course Orders Ordered: Discontinued Medications Bisacodyl (Bisacodyl 10 Mg Supp) 10 mg WV NOW ONE Stop: 03/11/22 18:42 Last Admin: 03/11/22 20:21 Dose: 10 mg Documented By: KACEY Sodium Chloride (Normal Saline 0.9%) 500 mls @ 1,000 mls/hr IV BOLUS ONE Stop: 03/11/22 19:35 Last Admin: 03/11/22 20:21 Dose: Not Given Documented By: KACEY Sodium Chloride (Normal Saline 0.9%) 1,000 mls @ 1,000 mls/hr IV BOLUS PRN PRN Reason: Fluid replacement Lidocaine HCl (Lidocaine 2% (Glydo) 6 Ml Gel) 6 ml TOP NOW ONE Stop: 03/11/22 22:32 Last Admin: 03/11/22 22:52 Dose: 6 ml Documented By: HYACINTH Tamsulosin HCl (Tamsulosin 0.4 Mg Capsule) 0.4 mg PO NOW ONE Stop: 03/11/22 22:32 Last Admin: 03/11/22 23:11 Dose: 0.4 mg Documented By: HYACINTH Vital Signs Vital signs: Vital Signs - 8 hr 03/11/22 15:08 Temperature 98.1 F Pulse Rate 68 Respiratory Rate 17 Blood Pressure 113/55 L Pulse Oximetry 96 Oxygen Delivery Method Room Air MDM - Abdominal Pain Lab Data Result diagrams: 03/11/22 19:08 03/11/22 19:08 Labs: Lab Results 03/11/22 03/11/22 03/11/22 Range/Units 19:08 19:08 19:08 WBC 3.5 L (4.5-11.0) X10^3/uL RBC 3.49 L (4.5-5.9) X10^6/uL Hgb 11.7 L (13.5-17.5) g/dL Hct 33.3 L (41-53) % MCV 95.6 (80-100) fL MCH 33.6 (26-34) PG MCHC 35.1 (30-36) % RDW 12.8 (11.6-14.8) % Plt Count 266 (150-400) X10^3/uL Neut % (Auto) 61.1 (50-75) % Lymph % (Auto) 25.6 (25-40) % Atkinson % (Auto) 10.3 (3-14) % Eos % (Auto) 2.5 (2-4) % Baso % (Auto) 0.5 (0-2) % Neut # (Auto) 2100 (9854-7425) /uL Lymph # (Auto) 900 L (7761-5125) /uL Atkinson # (Auto) 400 (0-900) /uL Eos # (Auto) 100 (0-450) /uL Baso # (Auto) 0 (0-100) /uL Sodium 136 L (137-145) mmol/L Potassium 3.6 (3.4-5.1) mmol/L Chloride 104 (98-107) mmol/L Carbon Dioxide 25 (22-32) mmol/L BUN 24 H (9-20) mg/dL Creatinine 1.54 H (0.66-1.25) mg/dL Estimated GFR 46 L (>60) mL/min BUN/Creatinine Ratio 15.6 (6-22) Glucose 115 H (80-110) mg/dL Lactate 1.2 (0.7-2.1) mmol/L Calcium 8.5 (8.4-10.2) mg/dL Total Bilirubin 2.6 H (0.2-1.3) mg/dL AST 27 (17-59) IU/L ALT 21 (<50) IU/L Alkaline Phosphatase 63 (38-126) U/L Total Protein 6.7 (6.3-8.2) g/dL Albumin 3.5 (3.5-5.0) g/dL Globulin 3.2 (1.7-4.1) g/dL Albumin/Globulin Ratio 1.1 (1.0-2.8) Urine Color Urine Appearance Urine pH (4.5-8.0) Ur Specific Mer[place] (1.000-1.035) Urine Protein (Negative) Urine Glucose (UA) (Negative) g/dL Urine Ketones (NEGATIVE) Urine Occult Blood (Negative) Urine Nitrate (Negative) Urine Bilirubin (NEGATIVE) Urine Urobilinogen (0.2) E.U./dL Ur Leukocyte Esterase (NEGATIVE) Urine RBC (0-5/HPF) Urine WBC (0-5/HPF) Urine Bacteria (None) Ur Culture Indicated? 03/11/22 Range/Units 21:30 WBC (4.5-11.0) X10^3/uL RBC (4.5-5.9) X10^6/uL Hgb (13.5-17.5) g/dL Hct (41-53) % MCV (80-100) fL MCH (26-34) PG MCHC (30-36) % RDW (11.6-14.8) % Plt Count (150-400) X10^3/uL Neut % (Auto) (50-75) % Lymph % (Auto) (25-40) % Atkinson % (Auto) (3-14) % Eos % (Auto) (2-4) % Baso % (Auto) (0-2) % Neut # (Auto) (3621-8650) /uL Lymph # (Auto) (2586-1730) /uL Atkinson # (Auto) (0-900) /uL Eos # (Auto) (0-450) /uL Baso # (Auto) (0-100) /uL Sodium (137-145) mmol/L Potassium (3.4-5.1) mmol/L Chloride (98-107) mmol/L Carbon Dioxide (22-32) mmol/L BUN (9-20) mg/dL Creatinine (0.66-1.25) mg/dL Estimated GFR (>60) mL/min BUN/Creatinine Ratio (6-22) Glucose (80-110) mg/dL Lactate (0.7-2.1) mmol/L Calcium (8.4-10.2) mg/dL Total Bilirubin (0.2-1.3) mg/dL AST (17-59) IU/L ALT (<50) IU/L Alkaline Phosphatase (38-126) U/L Total Protein (6.3-8.2) g/dL Albumin (3.5-5.0) g/dL Globulin (1.7-4.1) g/dL Albumin/Globulin Ratio (1.0-2.8) Urine Color Yellow Urine Appearance Clear Urine pH 6.5 (4.5-8.0) Ur Specific Mer[place] <=1.005 (1.000-1.035) Urine Protein Negative (Negative) Urine Glucose (UA) Negative (Negative) g/dL Urine Ketones Negative (NEGATIVE) Urine Occult Blood 1+ H (Negative) Urine Nitrate Negative (Negative) Urine Bilirubin Negative (NEGATIVE) Urine Urobilinogen 0.2 (0.2) E.U./dL Ur Leukocyte Esterase Negative (NEGATIVE) Urine RBC 0-1/hpf (0-5/HPF) Urine WBC 0-1/hpf (0-5/HPF) Urine Bacteria None seen (None) Ur Culture Indicated? Cult not indicated Imaging Data CT scan - abdomen/pelvis: Radiologist's Impression: PROCEDURE:? CT ABDOMEN PELVIS W CON ? INDICATIONS:? eval for bowel obstruction, hx colon cancer, oncology patien ? TECHNIQUE:? After the administration of IV contrast, axial sections were acquired from the l mackenzie bases to the pubic symphysis.? Coronal and sagittal reformats were performed.? For radiation dose reduction, the following was used:? automated exposure control, adjustment of mA and/or kV according to patient size. ? COMPARISON:? [facility], CT, CT ABDOMEN PELVIS W CON, 02/01/2022, 21:57. ? FINDINGS:? Image quality:? Excellent.? ? Lung bases:? There is mild atelectasis and scarring in the lung bases.? ? Heart:? Heart is normal in size.? There is a small hiatal hernia.? Mild concentric wall thickening of the visualized distal esophagus is again noted. ? ? ABDOMEN: Liver:? No mass lesion. Gallbladder:? Within normal limits without calcified gallstones.? ? Biliary ducts:? No biliary ductal dilatation.? ? Pancreas:? Unremarkable.? ? Spleen:? Normal in size.? ? Adrenal Glands:? No adrenal nodules.? ? Kidneys and Ureters:? 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 Mild bilateral hydroureteronephrosis is demonstrated extending to the bladder likely secondary to marked bladder distention.? No obstructing urinary stones identified.? There are 2 nonobstructing stones within the left kidney, with the largest stone measuring up to 0.5 cm.? This demonstrates attenuation values of approximately 400-500 Hounsfield units.? Mild nonspecific perinephric stranding is demonstrated bilaterally.? ? Stomach and Bowel:? Stomach and small bowel loops are normal in caliber and wall thickness.? Postsurgical changes are redemonstrated status post right hemicolectomy.? There is mild soft tissue thickening and fat stranding at the ileocolic anastomosis.? No associated fluid collections.? There is colonic diverticulosis without acute diverticulitis.? There is new lobulated concentric rectal wall thickening. Peritoneum:? No abnormal intraperitoneal fluid.? Mild nonspecific hazy fat stranding in the mesentery is redemonstrated.? No free air.? ? Ventral Wall: ? No hernia.? Abdominal Nodes:? No retroperitoneal or mesenteric adenopathy by size criteria.? Vessels:? Aorta and inferior vena cava are normal in size.? ? PELVIS: Pelvic Organs:? There is prominent heterogeneous enlargement of the prostate.? ? Bladder:? There is marked distention of the urinary bladder.? No bladder stones or wall thickening.? ? Pelvic Nodes: No enlarged lymph nodes.? Miscellaneous: No inguinal hernias are seen. ? ? ? Bones:? Visualized osseous structures demonstrate no suspicious focal lesions. ? IMPRESSION:? ? 1. Postsurgical changes redemonstrated status post right hemicolectomy.? Mild soft tissue fullness and fat stranding demonstrated at the ileocolic anastomosis without evidence of associated obstruction.? No associated fluid collections to suggest anastomotic leak. ? 2. New concentric lobulated wall thickening in the rectum is suggestive of a proctocolitis.? However, given the degree of wall thickening, consider follow-up sigmoidoscopy or colonoscopy to exclude a mass. ? 3. Marked distention of the urinary bladder suggestive of urinary retention or bladder outlet obstruction. ? 4. Mild bilateral hydroureteronephrosis extending to the bladder likely secondary to bladder distention. ? 5. Nonobstructing left renal stones.? ? ? Dictated by: Deyvi Parada M.D. on 03/11/2022 at 21:54 ? ? Approved by: Deyvi Parada M.D. on 03/11/2022 at 22:01 ? [facility] Narrative Medical decision making narrative: This is a 81-year-old male who presented to emergency department with worsening abdominal pain with concern for constipation. He was in the emergency department for many hours, his lab work was stable, no significant anemia, leukocytosis, or other abnormality on his CBC, hypokalemia with a potassium level of 3.3, his creatinine was elevated at 1.54 with a GFR of 46, this is worse than his prior at 1.12 with a GFR over 60, no lactic acidosis his total bilirubin is elevated to 2.6 from prior of 1.0 no other elevations in liver enzymes. His UA was positive for blood without leukocytes, bacteria, leukocyte esterase. Rectal exam patient had tenderness without positive Hemoccult, he had tenderness and excoriation of his anus, poor rectal tone. His CT was positive for mild soft tissue fullness and fat stranding at the ileocolic anastomosis without evidence of associated bowel obstruction, no associated fluid collections to suggest an anastomotic leak. New concentric lobulated wall thickening in the rectum is suggestive of a proctocolitis which correlates with his exam. Marked distention of the urinary bladder is suggestive of urinary retention or bladder outlet obstruction. Additionally, mild bilateral hydro ureter nephrosis extending to the bladder secondary to bladder distention with nonobstructing left renal stones. Patient did not complain of any urinary complaint, he was catheterized with a Wynne catheter and his pain resolved immediately. Patient was set up to follow-up with Dr. Dorado and was discharged home. He will follow-up with Dr. Reyes. Dr. Tennille Fung took over care of this patient and discharged. Discharge Plan Departure Patient Disposition: Home Clinical Impression: BPH loc w urin obs/LUTS, Elevated serum creatinine, Hypokalemia, Proctocolitis Colon cancer Qualifiers: Colon location: unspecified part of colon Qualified Code(s): C18.9 - Malignant neoplasm of colon, unspecified Instructions: How to Care for Your Wynne Catheter -- Male Activity Restrictions/Additional Instructions: Thank you for coming in today It turns out that you are not constipated. It turns out that your prostate is more swollen likely from the recent surgery and chemotherapy and is not letting you empty your bladder. You had a very distended bladder and I believe that is what was causing your symptoms. We have placed a Wynne catheter and you had almost 1700 cc of urine come out. We have should you how to switch from a leg bag to the bigger bag. If you do have any bladder spasm as your bladder get used to a more normal shape and size, Tylenol can be helpful Please call our urology office to schedule a follow-up for acute urinary retention with Wynne catheter placement in the emergency department Please take Flomax 1 tablet daily unless directed differently by either the urologist or your oncologist. The prescription was electronically transmitted to [facility]. I wish you the best Prescriptions: New tamsulosin 0.4 mg capsule 0.4 mg PO DAILY Qty: 30 2RF Hold Instructions: Hold while Wynne in No Action losartan 100 mg tablet 100 mg PO DAILY Qty: 90 3RF potassium chloride 20 mEq tablet extended release 20 meq PO DAILY Qty: 90 3RF felodipine 5 mg tablet extended release 24 hr 5 mg PO DAILY Qty: 90 2RF Rx Instructions: swallow whole; do not crush/chew; administer on an empty stomach, if possible furosemide 40 mg tablet 40 mg PO BID Qty: 180 2RF Hold Instructions: Hold to verify that he is still symptomatic simvastatin 40 mg tablet 40 mg PO QDAY Qty: 90 3RF atenolol 100 mg tablet 100 mg PO QDAY Qty: 90 3RF ibuprofen 200 mg tablet 400 mg PO Q6H Qty: 60 0RF acetaminophen [Tylenol] 325 mg capsule 650 mg PO QID PRN (Reason: pain) Qty: 60 0RF fluorouracil 2.5 gram/50 mL Solution 4,800 mg IV NOW Qty: 1 0RF Label Comments: pre ordered for next week Rx Instructions: continuous infusion over 46 hours prochlorperazine maleate [Compazine] 10 mg tablet 10 mg PO Q6H PRN (Reason: Nausea) Qty: 30 0RF prochlorperazine maleate [Compazine] 10 mg tablet 10 mg PO Q6H PRN (Reason: Nausea) Qty: 30 3RF Referrals: Edgardo Reyes MD [Primary Care Provider] - Monae Dorado MD [Physician] - Visit Report Forms: Patient Portal/API
--- NOTE | 2022-03-11 18:40 | DI.CT.S_ITS ---
PROCEDURE: CT ABDOMEN PELVIS W CON INDICATIONS: eval for bowel obstruction, hx colon cancer, oncology patien TECHNIQUE: After the administration of IV contrast, axial sections were acquired from the lung bases to the pubic symphysis. Coronal and sagittal reformats were performed. For radiation dose reduction, the following was used: automated exposure control, adjustment of mA and/or kV according to patient size. COMPARISON: [facility], CT, CT ABDOMEN PELVIS W CON, 02/01/2022, 21:57. FINDINGS: Image quality: Excellent. Lung bases: There is mild atelectasis and scarring in the lung bases. Heart: Heart is normal in size. There is a small hiatal hernia. Mild concentric wall thickening of the visualized distal esophagus is again noted. ABDOMEN: Liver: No mass lesion. Gallbladder: Within normal limits without calcified gallstones. Biliary ducts: No biliary ductal dilatation. Pancreas: Unremarkable. Spleen: Normal in size. Adrenal Glands: No adrenal nodules. 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 Mild bilateral hydroureteronephrosis is demonstrated extending to the bladder likely secondary to marked bladder distention. No obstructing urinary stones identified. There are 2 nonobstructing stones within the left kidney, with the largest stone measuring up to 0.5 cm. This demonstrates attenuation values of approximately 400-500 Hounsfield units. Mild nonspecific perinephric stranding is demonstrated bilaterally. Stomach and Bowel: Stomach and small bowel loops are normal in caliber and wall thickness. Postsurgical changes are redemonstrated status post right hemicolectomy. There is mild soft tissue thickening and fat stranding at the ileocolic anastomosis. No associated fluid collections. There is colonic diverticulosis without acute diverticulitis. There is new lobulated concentric rectal wall thickening. Peritoneum: No abnormal intraperitoneal fluid. Mild nonspecific hazy fat stranding in the mesentery is redemonstrated. No free air. Ventral Wall: No hernia. Abdominal Nodes: No retroperitoneal or mesenteric adenopathy by size criteria. Vessels: Aorta and inferior vena cava are normal in size. PELVIS: Pelvic Organs: There is prominent heterogeneous enlargement of the prostate. Bladder: There is marked distention of the urinary bladder. No bladder stones or wall thickening. Pelvic Nodes: No enlarged lymph nodes. Miscellaneous: No inguinal hernias are seen. Bones: Visualized osseous structures demonstrate no suspicious focal lesions. IMPRESSION: 1. Postsurgical changes redemonstrated status post right hemicolectomy. Mild soft tissue fullness and fat stranding demonstrated at the ileocolic anastomosis without evidence of associated obstruction. No associated fluid collections to suggest anastomotic leak. 2. New concentric lobulated wall thickening in the rectum is suggestive of a proctocolitis. However, given the degree of wall thickening, consider follow-up sigmoidoscopy or colonoscopy to exclude a mass. 3. Marked distention of the urinary bladder suggestive of urinary retention or bladder outlet obstruction. 4. Mild bilateral hydroureteronephrosis extending to the bladder likely secondary to bladder distention. 5. Nonobstructing left renal stones. Dictated by: Deyvi Parada M.D. on 03/11/2022 at 21:54 Approved by: Deyvi Parada M.D. on 03/11/2022 at 22:01
[2022-03-11 19:29] LABS: Add Manual Diff / Slide Review NO; Basophils Absolute Auto 0 /uL (0-100); Basophils Percent Auto 0.5 % (0-2); Eosinophils Absolute Auto 100 /uL (0-450); Eosinophils Percent Auto 2.5 % (2-4); Hematocrit 33.3 % (41-53); Hemoglobin 11.7 g/dL (13.5-17.5); Lymphocytes Absolute Auto 900 /uL (1100-4500); Lymphocytes Percent Auto 25.6 % (25-40); Mean Corpuscular HGB Conc 35.1 % (30-36); Mean Corpuscular Hemoglobin 33.6 PG (26-34); Mean Corpuscular Volume 95.6 fL (80-100); Monocytes Absolute Auto 400 /uL (0-900); Monocytes Percent Auto 10.3 % (3-14); Neutrophils Absolute Auto 2100 /uL (1500-7000); Neutrophils Percent Auto 61.1 % (50-75); Platelet Count 266 X10^3/uL (150-400); Red Blood Cell Count 3.49 X10^6/uL (4.5-5.9); Red Cell Distribution Width 12.8 % (11.6-14.8); White Blood Cell Count 3.5 X10^3/uL (4.5-11.0)
[2022-03-11 19:47] LABS: Lactate (Lactic Acid) 1.2 mmol/L (0.7-2.1)
[2022-03-11 19:49] LABS: Alanine Aminotransferase 21 IU/L (<50); Albumin 3.5 g/dL (3.5-5.0); Albumin Globulin Ratio 1.1 (1.0-2.8); Alkaline Phosphatase 63 U/L (38-126); Aspartate Aminotransferase 27 IU/L (17-59); BUN Creatinine Ratio 15.6 (6-22); Bilirubin Total 2.6 mg/dL (0.2-1.3); Blood Urea Nitrogen 24 mg/dL (9-20); Calcium 8.5 mg/dL (8.4-10.2); Carbon Dioxide 25 mmol/L (22-32); Chloride 104 mmol/L (98-107); Estimated Glomerular Filt Rate 46 mL/min (>60); Globulin 3.2 g/dL (1.7-4.1); Glucose 115 mg/dL (80-110); HEMOLYSIS < 15 (0-50); Potassium 3.6 mmol/L (3.4-5.1); Sodium 136 mmol/L (137-145); Total Protein 6.7 g/dL (6.3-8.2)
[2022-03-11] MEDS: BISACODYL 10 MG SUPP PR (20:21)
[2022-03-11 21:43] LABS: Appearance Urine UA CLEAR; Bilirubin Urine UA NEGATIVE (NEGATIVE); Color Urine UA YELLOW; Glucose Urine UA NEGATIVE (Negative); Ketones Urine UA NEGATIVE (NEGATIVE); Leukocyte Esterase Urine UA NEGATIVE (NEGATIVE); Nitrite Urine UA NEGATIVE (Negative); Occult Blood Urine UA 1+ (Negative); Protein Urine UA NEGATIVE (Negative); Specific Gravity Urine UA <=1.005 (1.000-1.035); Urobilinogen Urine UA 0.2 E.U./dL (0.2); pH Urine UA 6.5 (4.5-8.0)
[2022-03-11 21:53] LABS: Bacteria Urine None Seen; Culture Indicated Urine Cult Not Indicated; RBC Urine 0-1/HPF (0-5/HPF); WBC Urine 0-1/HPF (0-5/HPF)
--- NOTE | 2022-03-11 22:33 | ED_ITS ---
HPI - General Adult General Chief complaint: Abdominal Pain Stated complaint: Needs enema- sent by ONC Time Seen by Provider: 03/11/22 15:52 Source: patient Mode of arrival: Ambulatory History of Present Illness HPI narrative: 81-year-old gentleman with a history of a colon cancer and hemicolectomy in January of this year currently undergoing chemotherapy is complaining of constipation while in oncology clinic today is sent for treatment of his constipation. Notes that he has been taking stool softeners while in the emergency department he has been having increasingly liquid stool and a small amount of small solid formed stool. He is having increasing abdominal pain and a sensation that he needs to have a bowel movement with no stool immediately in the rectum. He has had no recent fever, cough, chills. He is tolerating his chemotherapy well. He notes that he has been voiding to in a way that he feels is normal. Complaining of no dysuria. No flank pain. Related Data Previous Rx's Medication Instructions Recorded losartan 100 mg tablet 100 mg PO DAILY #90 tabs 12/03/21 potassium chloride 20 mEq 20 meq PO DAILY #90 tabs 12/31/21 tablet,extended release acetaminophen 325 mg capsule 650 mg PO QID PRN pain #60 caps 01/18/22 (Tylenol) ibuprofen 200 mg tablet 400 mg PO Q6H #60 tabs 01/18/22 felodipine 5 mg tablet,extended 5 mg PO DAILY #90 tabs 01/22/22 release 24 hr furosemide 40 mg tablet 40 mg PO BID #180 tabs 01/22/22 atenolol 100 mg tablet 100 mg PO QDAY #90 tabs 01/28/22 simvastatin 40 mg tablet 40 mg PO QDAY #90 tabs 01/28/22 fluorouracil 2.5 gram/50 mL 4,800 mg (96 mL) IV NOW 02/05/22 intravenous solution CHEMOTHERAPY #1 device ondansetron 4 mg disintegrating 4 mg PO Q4HR PRN Nausea #30 tabs 02/19/22 tablet ondansetron 4 mg disintegrating 4 mg PO Q4HR PRN Nausea #30 tabs 02/19/22 tablet prochlorperazine maleate 10 mg 10 mg PO Q6H PRN Nausea #30 tabs 02/19/22 tablet (Compazine) prochlorperazine maleate 10 mg 10 mg PO Q6H PRN Nausea #30 tabs 02/19/22 tablet (Compazine) tamsulosin 0.4 mg capsule 0.4 mg PO DAILY #30 caps 03/11/22 Allergies Allergy/AdvReac Type Severity Reaction Status Date / Time No Known Drug Allergies Allergy Verified 03/11/22 14:12 Review of Systems Review of Systems Narrative: Remainder of complete review of systems is otherwise unremarkable except for that included in the HPI. Patient History Medical History (Updated 03/11/22 @ 22:41 by Alida Fung MD) BPH loc w urin obs/LUTS Chicken pox Chronic low back pain Colon cancer Colon polyps (2009) Dupuytren's contracture (09/28/13) Elevated LFTs Hyperlipidemia (1998) Hypertension (1977) Measles SERENITY (obstructive sleep apnea) Pain of right heel Ulcerative colitis Surgical History H/O colectomy History of colonoscopy with polypectomy (03/05/16) History of colonoscopy with polypectomy (2009) Hx of bilateral cataract extraction Hx of tonsillectomy Family History Father Hypertension Cardiac disorder Congestive heart failure Mother No problems noted. Brother Colon cancer Social History household members: spouse Smoking Status: Former smoker alcohol intake: former substance use type: does not use Smoking Status: Former smoker alcohol intake frequency: 3 or more drinks per day Substance Use Type: does not use Exam Initial Vital Signs Initial Vital Signs: Vital Signs Temperature 98.1 F 03/11/22 15:08 Pulse Rate 68 03/11/22 15:08 Respiratory Rate 17 03/11/22 15:08 Blood Pressure 113/55 L 03/11/22 15:08 Pulse Oximetry 96 03/11/22 15:08 Oxygen Delivery Method 03/11/22 15:08 General: Healthy appearing, in no acute distress. Able to give a complete and coherent history. Well-nourished well-developed HEENT: Moist mucous membranes, normal sclera with reactive pupils, Respiratory: Lungs are clear to auscultation, no wheezing no rales no rhonchi. Full and symmetrical air movement Cardiac: Regular rate and rhythm no murmurs no bruits Abdomen: Soft, nontender, good bowel tones, no flank pain. He has a single staple left just lateral to the umbilicus and has well-healed midline scar. This is removed in the emergency department today. Skin: Warm and dry, no rashes Rectal exam: Somewhat tender mildly excoriated no obvious masses and no obstipation Neurologic: Grossly neurologically intact with no obvious asymmetries or abnormalities Extremities: No trauma, well perfused Psych: Cooperative, appropriate insight and affect Course Orders Ordered: ED Orders 03/11/22 18:40 CT abdomen pelvis w con Stat 03/11/22 19:08 CBC Auto Diff [Complete Blood Count AUTO DIFF] Stat CMP [Comprehensive Metabolic Panel] Stat Lactate (Lactic Acid) Stat 03/11/22 21:30 UA Complete [Urinalysis and Microscopic] Stat Sodium Chloride (Normal Saline 0.9%) 1,000 mls @ 1,000 mls/hr IV BOLUS PRN PRN Reason: Fluid replacement Discontinued Medications Bisacodyl (Bisacodyl 10 Mg Supp) 10 mg UT NOW ONE Stop: 03/11/22 18:42 Last Admin: 03/11/22 20:21 Dose: 10 mg Documented By: KACEY Sodium Chloride (Normal Saline 0.9%) 500 mls @ 1,000 mls/hr IV BOLUS ONE Stop: 03/11/22 19:35 Last Admin: 03/11/22 20:21 Dose: Not Given Documented By: KACEY Lidocaine HCl (Lidocaine 2% (Glydo) 6 Ml Gel) 6 ml TOP NOW ONE Stop: 03/11/22 22:32 Last Admin: 03/11/22 22:52 Dose: 6 ml Tamsulosin HCl (Tamsulosin 0.4 Mg Capsule) 0.4 mg PO NOW ONE Stop: 03/11/22 22:32 Last Admin: 03/11/22 23:11 Dose: 0.4 mg Vital Signs Vital signs: Vital Signs - 8 hr 03/11/22 22:55 Pulse Rate 71 Blood Pressure 137/62 Pulse Oximetry 98 Oxygen Delivery Method Room Air Medical Decision Making Lab Data Result diagrams: 03/11/22 19:08 03/11/22 19:08 Labs: Lab Results 03/11/22 03/11/22 03/11/22 Range/Units 19:08 19:08 19:08 WBC 3.5 L (4.5-11.0) X10^3/uL RBC 3.49 L (4.5-5.9) X10^6/uL Hgb 11.7 L (13.5-17.5) g/dL Hct 33.3 L (41-53) % MCV 95.6 (80-100) fL MCH 33.6 (26-34) PG MCHC 35.1 (30-36) % RDW 12.8 (11.6-14.8) % Plt Count 266 (150-400) X10^3/uL Neut % (Auto) 61.1 (50-75) % Lymph % (Auto) 25.6 (25-40) % [place] % (Auto) 10.3 (3-14) % Eos % (Auto) 2.5 (2-4) % Baso % (Auto) 0.5 (0-2) % Neut # (Auto) 2100 (5145-7023) /uL Lymph # (Auto) 900 L (1911-4665) /uL [place] # (Auto) 400 (0-900) /uL Eos # (Auto) 100 (0-450) /uL Baso # (Auto) 0 (0-100) /uL Sodium 136 L (137-145) mmol/L Potassium 3.6 (3.4-5.1) mmol/L Chloride 104 (98-107) mmol/L Carbon Dioxide 25 (22-32) mmol/L BUN 24 H (9-20) mg/dL Creatinine 1.54 H (0.66-1.25) mg/dL Estimated GFR 46 L (>60) mL/min BUN/Creatinine Ratio 15.6 (6-22) Glucose 115 H (80-110) mg/dL Lactate 1.2 (0.7-2.1) mmol/L Calcium 8.5 (8.4-10.2) mg/dL Total Bilirubin 2.6 H (0.2-1.3) mg/dL AST 27 (17-59) IU/L ALT 21 (<50) IU/L Alkaline Phosphatase 63 (38-126) U/L Total Protein 6.7 (6.3-8.2) g/dL Albumin 3.5 (3.5-5.0) g/dL Globulin 3.2 (1.7-4.1) g/dL Albumin/Globulin Ratio 1.1 (1.0-2.8) Urine Color Urine Appearance Urine pH (4.5-8.0) Ur Specific [place] (1.000-1.035) Urine Protein (Negative) Urine Glucose (UA) (Negative) g/dL Urine Ketones (NEGATIVE) Urine Occult Blood (Negative) Urine Nitrate (Negative) Urine Bilirubin (NEGATIVE) Urine Urobilinogen (0.2) E.U./dL Ur Leukocyte Esterase (NEGATIVE) Urine RBC (0-5/HPF) Urine WBC (0-5/HPF) Urine Bacteria (None) Ur Culture Indicated? 03/11/22 Range/Units 21:30 WBC (4.5-11.0) X10^3/uL RBC (4.5-5.9) X10^6/uL Hgb (13.5-17.5) g/dL Hct (41-53) % MCV (80-100) fL MCH (26-34) PG MCHC (30-36) % RDW (11.6-14.8) % Plt Count (150-400) X10^3/uL Neut % (Auto) (50-75) % Lymph % (Auto) (25-40) % [place] % (Auto) (3-14) % Eos % (Auto) (2-4) % Baso % (Auto) (0-2) % Neut # (Auto) (8508-9544) /uL Lymph # (Auto) (7525-6472) /uL [place] # (Auto) (0-900) /uL Eos # (Auto) (0-450) /uL Baso # (Auto) (0-100) /uL Sodium (137-145) mmol/L Potassium (3.4-5.1) mmol/L Chloride (98-107) mmol/L Carbon Dioxide (22-32) mmol/L BUN (9-20) mg/dL Creatinine (0.66-1.25) mg/dL Estimated GFR (>60) mL/min BUN/Creatinine Ratio (6-22) Glucose (80-110) mg/dL Lactate (0.7-2.1) mmol/L Calcium (8.4-10.2) mg/dL Total Bilirubin (0.2-1.3) mg/dL AST (17-59) IU/L ALT (<50) IU/L Alkaline Phosphatase (38-126) U/L Total Protein (6.3-8.2) g/dL Albumin (3.5-5.0) g/dL Globulin (1.7-4.1) g/dL Albumin/Globulin Ratio (1.0-2.8) Urine Color Yellow Urine Appearance Clear Urine pH 6.5 (4.5-8.0) Ur Specific [place] <=1.005 (1.000-1.035) Urine Protein Negative (Negative) Urine Glucose (UA) Negative (Negative) g/dL Urine Ketones Negative (NEGATIVE) Urine Occult Blood 1+ H (Negative) Urine Nitrate Negative (Negative) Urine Bilirubin Negative (NEGATIVE) Urine Urobilinogen 0.2 (0.2) E.U./dL Ur Leukocyte Esterase Negative (NEGATIVE) Urine RBC 0-1/hpf (0-5/HPF) Urine WBC 0-1/hpf (0-5/HPF) Urine Bacteria None seen (None) Ur Culture Indicated? Cult not indicated Imaging Data CT scan - abdomen/pelvis: Radiologist's Impression: INDINGS:? Image quality:? Excellent.? ? Lung bases:? There is mild atelectasis and scarring in the lung bases.? ? Heart:? Heart is normal in size.? There is a small hiatal hernia.? Mild concentric wall thickening of the visualized distal esophagus is again noted. ? ? ABDOMEN: Liver:? No mass lesion. Gallbladder:? Within normal limits without calcified gallstones.? ? Biliary ducts:? No biliary ductal dilatation.? ? Pancreas:? Unremarkable.? ? Spleen:? Normal in size.? ? Adrenal Glands:? No adrenal nodules.? ? Kidneys and Ureters:? 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 Mild bilateral hydroureteronephrosis is demonstrated extending to the bladder likely secondary to marked bladder distention.? No obstructing urinary stones identified.? There are 2 nonobstructing stones within the left kidney, with the largest stone measuring up to 0.5 cm.? This demonstrates attenuation values of approximately 400-500 Hounsfield units.? Mild nonspecific perinephric stranding is demonstrated bilaterally.? ? Stomach and Bowel:? Stomach and small bowel loops are normal in caliber and wall thickness.? Postsurgical changes are redemonstrated status post right hemicolectomy.? There is mild soft tissue thickening and fat stranding at the ileocolic anastomosis.? No associated fluid collections.? There is colonic diverticulosis without acute diverticulitis.? There is new lobulated concentric rectal wall thickening. Peritoneum:? No abnormal intraperitoneal fluid.? Mild nonspecific hazy fat stranding in the mesentery is redemonstrated.? No free air.? ? Ventral Wall: ? No hernia.? Abdominal Nodes:? No retroperitoneal or mesenteric adenopathy by size criteria.? Vessels:? Aorta and inferior vena cava are normal in size.? ? PELVIS: Pelvic Organs:? There is prominent heterogeneous enlargement of the prostate.? ? Bladder:? There is marked distention of the urinary bladder.? No bladder stones or wall thickening.? ? Pelvic Nodes: No enlarged lymph nodes.? Miscellaneous: No inguinal hernias are seen. ? ? ? Bones:? Visualized osseous structures demonstrate no suspicious focal lesions. ? IMPRESSION:? ? 1. Postsurgical changes redemonstrated status post right hemicolectomy.? Mild soft tissue fullness and fat stranding demonstrated at the ileocolic anastomosis without evidence of associated obstruction.? No associated fluid collections to suggest anastomotic leak. ? 2. New concentric lobulated wall thickening in the rectum is suggestive of a proctocolitis.? However, given the degree of wall thickening, consider follow-up sigmoidoscopy or colonoscopy to exclude a mass. ? 3. Marked distention of the urinary bladder suggestive of urinary retention or bladder outlet obstruction. ? 4. Mild bilateral hydroureteronephrosis extending to the bladder likely secondary to bladder distention. ? 5. Nonobstructing left renal stones.? ? ? Dictated by: Deyvi Parada M.D. on 03/11/2022 at 21:54 ? ? [facility] Narrative Medical decision making narrative: The me 11-year-old gentleman with recent colon cancer currently on chemotherapy sent with concerns for constipation. Labs suggest a slight bump to his creatinine. No obvious obstipation. He is having some loose stool in the emergency department with no relief of symptoms. Because of his cancer history and slight bump in creatinine a CT scan of the abdomen is done showing no constipation but a dramatically distended bladder. Follow-up bladder scan has a bladder so distended I can not fully measure it because it does not fit on the entire screen of the ultrasound. He notes that he has been voiding but apparently has been only voiding small amounts. We discussed need for Wynne catheter and the probability that his abdominal pain is secondary to his very distended bladder and the sensation of a needing to have a bowel movement is likely from an irritated enlarged prostate after his surgery and with current chemotherapy He started on Flomax, Wynne catheter is placed, 1700cc of yellow urine freely drained. Reviewed care of Wynne catheter and switching from leg bag to usual bag, patient and his are given instructions. Will ask him to follow-up with urology clinic for bladder outlet obstruction management. Questions are answered he is safe for home discharge Discharge Plan Departure Patient Disposition: Home Clinical Impression: BPH loc w urin obs/LUTS, Colon cancer, Elevated serum creatinine Instructions: How to Care for Your Wynne Catheter -- Male Activity Restrictions/Additional Instructions: Thank you for coming in today It turns out that you are not constipated. It turns out that your prostate is more swollen likely from the recent surgery and chemotherapy and is not letting you empty your bladder. You had a very distended bladder and I believe that is what was causing your symptoms. We have placed a Wynne catheter and you had almost 1700 cc of urine come out. We have should you how to switch from a leg bag to the bigger bag. If you do have any bladder spasm as your bladder get used to a more normal shape and size, Tylenol can be helpful Please call our urology office to schedule a follow-up for acute urinary retention with Wynne catheter placement in the emergency department Please take Flomax 1 tablet daily unless directed differently by either the urologist or your oncologist. The prescription was electronically transmitted to [facility]. I wish you the best Prescriptions: New tamsulosin 0.4 mg capsule 0.4 mg PO DAILY Qty: 30 2RF No Action losartan 100 mg tablet 100 mg PO DAILY Qty: 90 3RF potassium chloride 20 mEq tablet extended release 20 meq PO DAILY Qty: 90 3RF felodipine 5 mg tablet extended release 24 hr 5 mg PO DAILY Qty: 90 2RF Rx Instructions: swallow whole; do not crush/chew; administer on an empty stomach, if possible furosemide 40 mg tablet 40 mg PO BID Qty: 180 2RF Hold Instructions: Hold to verify that he is still symptomatic simvastatin 40 mg tablet 40 mg PO QDAY Qty: 90 3RF atenolol 100 mg tablet 100 mg PO QDAY Qty: 90 3RF ibuprofen 200 mg tablet 400 mg PO Q6H Qty: 60 0RF acetaminophen [Tylenol] 325 mg capsule 650 mg PO QID PRN (Reason: pain) Qty: 60 0RF fluorouracil 2.5 gram/50 mL Solution 4,800 mg IV NOW Qty: 1 0RF Label Comments: pre ordered for next week Rx Instructions: continuous infusion over 46 hours prochlorperazine maleate [Compazine] 10 mg tablet 10 mg PO Q6H PRN (Reason: Nausea) Qty: 30 0RF ondansetron 4 mg tablet,disintegrating 4 mg PO Q4HR PRN (Reason: Nausea) Qty: 30 0RF prochlorperazine maleate [Compazine] 10 mg tablet 10 mg PO Q6H PRN (Reason: Nausea) Qty: 30 3RF ondansetron 4 mg tablet,disintegrating 4 mg PO Q4HR PRN (Reason: Nausea) Qty: 30 3RF Referrals: Edgardo Reyes MD [Primary Care Provider] - Monae Dorado MD [Physician] -
[2022-03-11] MEDS: LIDOCAINE 2% (GLYDO) 6 ML GEL TOP (22:52)
[2022-03-11 22:55] VITALS: BP 137/62; PULSE 71; O2SAT 98
[2022-03-11] MEDS: TAMSULOSIN 0.4 MG CAPSULE PO (23:11)
--- NOTE | 2022-03-11 23:35 | PC.NURSE ---
king bag changed to leg bag with instructions given and repeated back
== END 2022-03-11 23:36 | disposition home or self-care (01) ==
PROVIDERS: Nurse Practitioner Critical Care Medicine; Emergency Provider Emergency Medicine; PCP Student in an Organized Health Care Education/Training Program; Referring Provider Internal Medicine Medical Oncology
DX: K52.9 Noninfective gastroenteritis and colitis, unspecified (principal); N40.1 Benign prostatic hyperplasia with lower urinary tract symptoms; E87.6 Hypokalemia; C18.9 Malignant neoplasm of colon, unspecified
CPT/HCPCS: 36415; 74177; 80053; 81001; 83605; 85025; 99284; Q9967

== ENCOUNTER → 2022-04-09 08:50 | Outpatient (CLI) | payer MEDICARE, SELFPAY ==
[2022-02-06 09:24] VITALS: BMI 26.9
== END ==
PROVIDERS: PCP Student in an Organized Health Care Education/Training Program; Visit Provider Urology
DX: Z97.8 Presence of other specified devices (principal)
CPT/HCPCS: 87086

== ENCOUNTER → 2022-04-23 08:57 | Outpatient (CLI) | payer MEDICARE, SELFPAY ==
[2022-02-06 09:24] VITALS: BMI 26.9
== END ==
PROVIDERS: PCP Student in an Organized Health Care Education/Training Program; Visit Provider Urology
DX: N17.9 Acute kidney failure, unspecified (principal); N40.1 Benign prostatic hyperplasia with lower urinary tract symptoms; Z97.8 Presence of other specified devices
CPT/HCPCS: 87086

== ENCOUNTER 2022-05-08 11:37 | Emergency (ER) | payer MEDICARE, SELFPAY ==
[2022-02-06 09:24] VITALS: BMI 26.9
[2022-05-08] VITALS (14 sets, daily range): BP systolic 126–170; BP diastolic 59–73; PULSE 71–85; RESP 14–21; TEMP 36.8; O2SAT 95–100; BMI 25.1
--- NOTE | 2022-05-08 12:34 | ED_ITS ---
HPI - Abdominal Pain <Kimberly Maldonado FISCAL ANALYST - Last Filed: 05/08/22 16:07> General Chief Complaint: Abdominal Pain Stated Complaint: Impacted bowel, Sent from cancer care Time Seen by Provider: 05/08/22 12:23 History of Present Illness HPI narrative: This is a 81-year-old male with history of colon cancer, status post right hemicolectomy in January of 2022, currently on chemotherapy with a history of BPH with Wynne catheter in place for 1 week, SERENITY, hyperlipidemia and presents to the emergency department complaining of transverse low abdominal pain, constipation for 2 days without a bowel movement, pain and spasming in his low abdomen with bright red blood in his stool, he states it is yellow and red liquid and not stool that is coming out. He endorses feeling fatigued, has not had an appetite, feels dehydrated, states that his primary care provider is Dr. Mackey, his GI surgeon was Dr. Simeon, when he had a hemicolectomy he also had an appendectomy. He states that his blood pressure has been low for him, he states it has been 115/44. He has a port in his right upper chest, his urologist is Dr. Campbell, states his Wynne catheter was put in 1 week ago on Friday it has been leaking and his follow-up appointment is scheduled for May 13. Patient states that he is having trouble sleeping and isn't eating because he is having pain. He denies fever but states he has had chills. Last bowel movement was 1024, patient has had 3 doses of MiraLax. He does endorse cramping and bloating feels distended. Patient has a history of small-bowel obstruction, he was seen on 03/11/2022 and diagnosed with BPH with urinary obstruction, was sent home with a Wynne catheter, colon cancer, elevated serum creatinine, hypokalemia and proctocolitis. Related Data Previous Rx's Medication Instructions Recorded losartan 100 mg tablet 100 mg PO DAILY #90 tabs 12/03/21 potassium chloride 20 mEq 20 meq PO DAILY #90 tabs 12/31/21 tablet,extended release acetaminophen 325 mg capsule 650 mg PO QID PRN pain #60 caps 01/18/22 (Tylenol) ibuprofen 200 mg tablet 400 mg PO Q6H #60 tabs 01/18/22 furosemide 40 mg tablet 40 mg PO BID #180 tabs 01/22/22 atenolol 100 mg tablet 100 mg PO QDAY #90 tabs 01/28/22 simvastatin 40 mg tablet 40 mg PO QDAY #90 tabs 01/28/22 fluorouracil 2.5 gram/50 mL 4,800 mg (96 mL) IV NOW 02/05/22 intravenous solution CHEMOTHERAPY #1 device prochlorperazine maleate 10 mg 10 mg PO Q6H PRN Nausea #30 tabs 02/19/22 tablet (Compazine) prochlorperazine maleate 10 mg 10 mg PO Q6H PRN Nausea #30 tabs 02/19/22 tablet (Compazine) tamsulosin 0.4 mg capsule See Rx Instructions .Route 04/19/22 .COMPLEX #180 caps finasteride 5 mg tablet 5 mg PO DAILY #90 tabs 04/23/22 ciprofloxacin HCl 500 mg tablet 500 mg PO BID 7 days #14 tabs 05/08/22 fluconazole 150 mg tablet 150 mg PO Q3D 2 doses #2 tabs 05/08/22 magnesium oxide 500 mg capsule 500 mg PO BEDTIME #20 caps 05/08/22 Allergies Allergy/AdvReac Type Severity Reaction Status Date / Time No Known Drug Allergies Allergy Verified 04/29/22 08:21 Review of Systems <CARLOS Prajapati - Last Filed: 05/08/22 16:07> Review of Systems Narrative: Review of systems is negative for acute abnormalities unless otherwise noted in HPI Patient History <CARLOS Prajapati - Last Filed: 05/08/22 16:07> Medical History BPH loc w urin obs/LUTS Chicken pox Chronic low back pain Colon cancer Colon polyps (2009) Dupuytren's contracture (09/28/13) Elevated LFTs Hyperlipidemia (1998) Hypertension (1977) Measles SERENITY (obstructive sleep apnea) Pain of right heel Ulcerative colitis Surgical History H/O colectomy History of colonoscopy with polypectomy (03/05/16) History of colonoscopy with polypectomy (2009) Hx of bilateral cataract extraction Hx of tonsillectomy S/P colon resection Family History Father Hypertension Cardiac disorder Congestive heart failure Mother No problems noted. 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 General: cooperative, comfortable, in no acute distress, well groomed HEENT: symmetrical facial expressions, moist mucous membranes Cardiovascular: regular rate and rhythm, no peripheral edema, warm extremities Respiratory: normal effort, able to speak in complete sentences, without wheezing, stridor, or abnormal breath sounds. No retractions or tachypnea. GI: abdomen firm across his transverse low abdomen, nontender to palpation, distended without masses, without rebound tenderness or exquisite tenderness with exam. No urine flowing in catheter, mild leakage from Wynne catheter MSK: moves all extremities, neurovascularly intact, no weakness, normal tone Skin: brisk capillary refill, without pallor or erythema Neuro: normal speech and cognition, A&O x3, ambulatory, clear speech Psych: mental status is grossly normal, congruent mood, normal affect, pleasant and cooperative Initial Vital Signs Initial Vital Signs: Vital Signs Temperature 98.2 F 05/08/22 12:10 Pulse Rate 84 05/08/22 12:10 Respiratory Rate 19 05/08/22 12:10 Blood Pressure 145/72 H 05/08/22 12:10 Pulse Oximetry 100 05/08/22 12:10 Oxygen Delivery Method 05/08/22 12:10 <Ml Tariq DO - Last Filed: 05/09/22 08:19> Initial Vital Signs Initial Vital Signs: Vital Signs Temperature 98.2 F 05/08/22 12:10 Pulse Rate 84 05/08/22 12:10 Respiratory Rate 19 05/08/22 12:10 Blood Pressure 145/72 H 05/08/22 12:10 Pulse Oximetry 100 05/08/22 12:10 Oxygen Delivery Method 05/08/22 12:10 Course <CARLOS Prajapati - Last Filed: 05/08/22 16:07> Course Course Narrative: Patient returned from CT, the nurse was not able to draw labs at the time that he access support and did not mention this to the person covering for her unfortunately. Labs were sent and pending. Patient has marked bladder distention via CT with a Wynne catheter in it, suspect obstruction, will be removed and a new Wynne catheter placed. Update, his catheter was removed, it was leaking around the urethral meatus, 1600 mL of urine was drained from his bladder. Patient remains on finasteride, potassium, and tamsulosin Orders Ordered: Discontinued Medications Bisacodyl (Bisacodyl 10 Mg Supp) 10 mg [place] NOW ONE Stop: 05/08/22 12:47 Last Admin: 05/08/22 15:18 Dose: Not Given Documented By: ROXANNE Bisacodyl (Bisacodyl 10 Mg Supp) 10 mg NJ NOW ONE Stop: 05/08/22 15:35 Last Admin: 05/08/22 15:35 Dose: 10 mg Documented By: ROXANNE Ciprofloxacin (Ciprofloxacin 250 Mg Tablet) 500 mg PO NOW ONE Stop: 05/08/22 15:47 Last Admin: 05/08/22 15:57 Dose: 500 mg Documented By: MAURA Fluconazole (Fluconazole 100 Mg Tablet) 150 mg PO NOW ONE Stop: 05/08/22 16:00 Last Admin: 05/08/22 16:34 Dose: 150 mg Documented By: ROXANNE Heparin Sodium (Porcine) (Heparin 500 Unit/5 Ml Port Flush) 500 unit IV PRN PRN PRN Reason: Flush Last Admin: 05/08/22 16:41 Dose: 500 unit Documented By: ROXANNE Lactated Ringer's (Lactated Ringers) 1,000 mls @ 1,000 mls/hr IV BOLUS ONE Stop: 05/08/22 13:45 Last Infusion: 05/08/22 15:32 Dose: 0 mls/hr Documented By: Admin: 05/08/22 14:18 Dose: 1,000 mls/hr Documented By: ROXANNE Magnesium Sulfate (Magnesium Sulfate) 2 gm in 50 mls @ 150 mls/hr IV NOW ONE Stop: 05/08/22 15:26 Last Infusion: 05/08/22 15:59 Dose: 0 mls/hr Documented By: ROXANNE Co-signed By: DIYA Admin: 05/08/22 15:28 Dose: 150 mls/hr Documented By: ROXANNE Co-signed By: ALEM Ceftriaxone Sodium 1,000 mg/ (Sodium Chloride) 100 mls @ 200 mls/hr IV NOW ONE Stop: 05/08/22 15:40 Last Infusion: 05/08/22 16:33 Dose: 0 mls/hr Documented By: Admin: 05/08/22 15:58 Dose: 200 mls/hr Documented By: MAURA Ketorolac Tromethamine (Ketorolac 30 Mg/Ml Vial) 15 mg IV NOW ONE Stop: 05/08/22 15:18 Last Admin: 05/08/22 15:33 Dose: Not Given Documented By: ROXANNE Lidocaine HCl (Lidocaine 2% (Glydo) 6 Ml Gel) 6 ml TOP NOW ONE Stop: 05/08/22 14:29 Last Admin: 05/08/22 14:33 Dose: 6 ml Documented By: ROXANNE Magnesium Oxide (Magnesium Oxide 400 Mg Tablet) 400 mg PO NOW ONE Stop: 05/08/22 15:09 Last Admin: 05/08/22 15:27 Dose: 400 mg Documented By: ROXANNE Potassium Chloride (Potassium Chloride 20 Meq/15 Ml Udc) 20 meq PO NOW ONE Stop: 05/08/22 15:08 Last Admin: 05/08/22 15:27 Dose: 20 meq Documented By: ROXANNE Vital Signs Vital signs: Vital Signs - 8 hr 05/08/22 12:10 05/08/22 12:21 05/08/22 13:33 Temperature 98.2 F Pulse Rate 84 84 Respiratory Rate 19 Blood Pressure 145/72 H 145/65 H Pulse Oximetry 100 98 Oxygen Delivery Method Room Air 05/08/22 13:33 05/08/22 14:08 05/08/22 14:19 Temperature Pulse Rate 84 85 83 Respiratory Rate Blood Pressure Pulse Oximetry 95 99 98 Oxygen Delivery Method 05/08/22 14:19 05/08/22 14:23 05/08/22 14:30 Temperature Pulse Rate 82 Respiratory Rate 18 Blood Pressure 130/63 170/73 H Pulse Oximetry 98 Oxygen Delivery Method 05/08/22 15:00 05/08/22 15:06 05/08/22 15:30 Temperature Pulse Rate 72 Respiratory Rate 14 Blood Pressure 161/72 H 147/67 H Pulse Oximetry 98 Oxygen Delivery Method 05/08/22 15:30 Temperature Pulse Rate 77 Respiratory Rate Blood Pressure Pulse Oximetry 98 Oxygen Delivery Method <Ml Tariq DO - Last Filed: 05/09/22 08:19> Orders Ordered: Discontinued Medications Bisacodyl (Bisacodyl 10 Mg Supp) 10 mg NJ NOW ONE Stop: 05/08/22 12:47 Last Admin: 05/08/22 15:18 Dose: Not Given Documented By: ROXANNE Bisacodyl (Bisacodyl 10 Mg Supp) 10 mg NJ NOW ONE Stop: 05/08/22 15:35 Last Admin: 05/08/22 15:35 Dose: 10 mg Documented By: ROXANNE Ciprofloxacin (Ciprofloxacin 250 Mg Tablet) 500 mg PO NOW ONE Stop: 05/08/22 15:47 Last Admin: 05/08/22 15:57 Dose: 500 mg Documented By: MAURA Fluconazole (Fluconazole 100 Mg Tablet) 150 mg PO NOW ONE Stop: 05/08/22 16:00 Last Admin: 05/08/22 16:34 Dose: 150 mg Documented By: ROXANNE Heparin Sodium (Porcine) (Heparin 500 Unit/5 Ml Port Flush) 500 unit IV PRN PRN PRN Reason: Flush Last Admin: 05/08/22 16:41 Dose: 500 unit Documented By: ROXANNE Lactated Ringer's (Lactated Ringers) 1,000 mls @ 1,000 mls/hr IV BOLUS ONE Stop: 05/08/22 13:45 Last Infusion: 05/08/22 15:32 Dose: 0 mls/hr Documented By: Admin: 05/08/22 14:18 Dose: 1,000 mls/hr Documented By: ROXANNE Magnesium Sulfate (Magnesium Sulfate) 2 gm in 50 mls @ 150 mls/hr IV NOW ONE Stop: 05/08/22 15:26 Last Infusion: 05/08/22 15:59 Dose: 0 mls/hr Documented By: ROXANNE Co-signed By: DIYA Admin: 05/08/22 15:28 Dose: 150 mls/hr Documented By: ROXANNE Co-signed By: ALEM Ceftriaxone Sodium 1,000 mg/ (Sodium Chloride) 100 mls @ 200 mls/hr IV NOW ONE Stop: 05/08/22 15:40 Last Infusion: 05/08/22 16:33 Dose: 0 mls/hr Documented By: Admin: 05/08/22 15:58 Dose: 200 mls/hr Documented By: MAURA Ketorolac Tromethamine (Ketorolac 30 Mg/Ml Vial) 15 mg IV NOW ONE Stop: 05/08/22 15:18 Last Admin: 05/08/22 15:33 Dose: Not Given Documented By: ROXANNE Lidocaine HCl (Lidocaine 2% (Glydo) 6 Ml Gel) 6 ml TOP NOW ONE Stop: 05/08/22 14:29 Last Admin: 05/08/22 14:33 Dose: 6 ml Documented By: ROXANNE Magnesium Oxide (Magnesium Oxide 400 Mg Tablet) 400 mg PO NOW ONE Stop: 05/08/22 15:09 Last Admin: 05/08/22 15:27 Dose: 400 mg Documented By: ROXANNE Potassium Chloride (Potassium Chloride 20 Meq/15 Ml Udc) 20 meq PO NOW ONE Stop: 05/08/22 15:08 Last Admin: 05/08/22 15:27 Dose: 20 meq Documented By: ROXANNE Vital Signs Vital signs: Vital Signs - 8 hr 05/08/22 12:10 05/08/22 12:21 05/08/22 13:33 Temperature 98.2 F Pulse Rate 84 84 Respiratory Rate 19 Blood Pressure 145/72 H 145/65 H Pulse Oximetry 100 98 Oxygen Delivery Method Room Air 05/08/22 13:33 05/08/22 14:08 05/08/22 14:19 Temperature Pulse Rate 84 85 83 Respiratory Rate Blood Pressure Pulse Oximetry 95 99 98 Oxygen Delivery Method 05/08/22 14:19 05/08/22 14:23 05/08/22 14:30 Temperature Pulse Rate 82 Respiratory Rate 18 Blood Pressure 130/63 170/73 H Pulse Oximetry 98 Oxygen Delivery Method 05/08/22 15:00 05/08/22 15:06 05/08/22 15:30 Temperature Pulse Rate 72 Respiratory Rate 14 Blood Pressure 161/72 H 147/67 H Pulse Oximetry 98 Oxygen Delivery Method 05/08/22 15:30 Temperature Pulse Rate 77 Respiratory Rate Blood Pressure Pulse Oximetry 98 Oxygen Delivery Method MDM - Abdominal Pain <CARLOS Prajapati - Last Filed: 05/08/22 16:07> Lab Data Result diagrams: 05/08/22 14:18 05/08/22 14:18 Labs: Lab Results 05/08/22 05/08/22 05/08/22 Range/Units 14:18 14:18 14:18 WBC 3.6 L (4.5-11.0) X10^3/uL RBC 3.29 L (4.5-5.9) X10^6/uL Hgb 11.2 L (13.5-17.5) g/dL Hct 31.9 L (41-53) % MCV 97.0 (80-100) fL MCH 34.0 (26-34) PG MCHC 35.0 (30-36) % RDW 16.7 H (11.6-14.8) % Plt Count 175 (150-400) X10^3/uL Neut % (Auto) Not Reportable Lymph % (Auto) Not Reportable [place] % (Auto) Not Reportable Eos % (Auto) Not Reportable Baso % (Auto) Not Reportable Lymph # (Auto) Not Reportable [place] # (Auto) Not Reportable Baso # (Auto) Not Reportable Total Counted 100 Seg Neutrophils % 45.0 (38-70) % Band Neutrophils % 1.0 L (3-7) % Lymphocytes % (Manual) 32.0 (25-45) % Atypical Lymphs % 2.0 H ( - 0) % Monocytes % (Manual) 19.0 H (2-11) % Basophils % (Manual) 1.0 (0-1) % Neutrophils # (Manual) 1656 L (4288-1120) /uL RBC Morphology Normal morphology Sodium 134 L (137-145) mmol/L Potassium 3.4 (3.4-5.1) mmol/L Chloride 101 (98-107) mmol/L Carbon Dioxide 23 (22-32) mmol/L BUN 15 (9-20) mg/dL Creatinine 1.03 (0.66-1.25) mg/dL Estimated GFR > 60 (>60) mL/min BUN/Creatinine Ratio 14.6 (6-22) Glucose 112 H (80-110) mg/dL Lactate 2.0 (0.7-2.1) mmol/L Calcium 8.7 (8.4-10.2) mg/dL Magnesium 1.1 L (1.6-2.3) mg/dL Total Bilirubin 2.3 H (0.2-1.3) mg/dL AST 41 (17-59) IU/L ALT 26 (<50) IU/L Alkaline Phosphatase 121 (38-126) U/L C-Reactive Protein 0.6 (<1.0) mg/dL Total Protein 6.6 (6.3-8.2) g/dL Albumin 3.3 L (3.5-5.0) g/dL Globulin 3.3 (1.7-4.1) g/dL Albumin/Globulin Ratio 1.0 (1.0-2.8) Procalcitonin (<0.5) ng/mL Urine Color Urine Appearance Urine pH (4.5-8.0) Ur Specific [place] (1.000-1.035) Urine Protein (Negative) Urine Glucose (UA) (Negative) g/dL Urine Ketones (NEGATIVE) Urine Occult Blood (Negative) Urine Nitrate (Negative) Urine Bilirubin (NEGATIVE) Urine Urobilinogen (0.2) E.U./dL Ur Leukocyte Esterase (NEGATIVE) Urine RBC (0-5/HPF) Urine WBC (0-5/HPF) Urine Bacteria (None) Urine Yeast (None) Ur Culture Indicated? 05/08/22 05/08/22 Range/Units 14:18 14:45 WBC (4.5-11.0) X10^3/uL RBC (4.5-5.9) X10^6/uL Hgb (13.5-17.5) g/dL Hct (41-53) % MCV (80-100) fL MCH (26-34) PG MCHC (30-36) % RDW (11.6-14.8) % Plt Count (150-400) X10^3/uL Neut % (Auto) Lymph % (Auto) [place] % (Auto) Eos % (Auto) Baso % (Auto) Lymph # (Auto) [place] # (Auto) Baso # (Auto) Total Counted Seg Neutrophils % (38-70) % Band Neutrophils % (3-7) % Lymphocytes % (Manual) (25-45) % Atypical Lymphs % ( - 0) % Monocytes % (Manual) (2-11) % Basophils % (Manual) (0-1) % Neutrophils # (Manual) (8704-6348) /uL RBC Morphology Sodium (137-145) mmol/L Potassium (3.4-5.1) mmol/L Chloride (98-107) mmol/L Carbon Dioxide (22-32) mmol/L BUN (9-20) mg/dL Creatinine (0.66-1.25) mg/dL Estimated GFR (>60) mL/min BUN/Creatinine Ratio (6-22) Glucose (80-110) mg/dL Lactate (0.7-2.1) mmol/L Calcium (8.4-10.2) mg/dL Magnesium (1.6-2.3) mg/dL Total Bilirubin (0.2-1.3) mg/dL AST (17-59) IU/L ALT (<50) IU/L Alkaline Phosphatase (38-126) U/L C-Reactive Protein (<1.0) mg/dL Total Protein (6.3-8.2) g/dL Albumin (3.5-5.0) g/dL Globulin (1.7-4.1) g/dL Albumin/Globulin Ratio (1.0-2.8) Procalcitonin 0.15 (<0.5) ng/mL Urine Color Yellow Urine Appearance Sl cloudy Urine pH 6.5 (4.5-8.0) Ur Specific [place] <=1.005 (1.000-1.035) Urine Protein Negative (Negative) Urine Glucose (UA) Negative (Negative) g/dL Urine Ketones Negative (NEGATIVE) Urine Occult Blood 1+ H (Negative) Urine Nitrate Negative (Negative) Urine Bilirubin Negative (NEGATIVE) Urine Urobilinogen 0.2 (0.2) E.U./dL Ur Leukocyte Esterase 3+ H (NEGATIVE) Urine RBC 10-30/hpf H (0-5/HPF) Urine WBC 10-30/hpf H (0-5/HPF) Urine Bacteria None seen (None) Urine Yeast 30-100/hpf H (None) Ur Culture Indicated? Specimen cultured Imaging Data CT scan - abdomen/pelvis: Radiologist's Impression: PROCEDURE:? CT ABDOMEN PELVIS W CON ? INDICATIONS:? GI bleed, hx proctocolitis, pelvic pain, constipation ? TECHNIQUE:? After the administration of intravenous contrast, axial sections acquired from the lung bases to the pubic symphysis.? Coronal and sagittal reformats were performed.? For radiation dose reduction, the following was used:? automated exposure control, adjustment of mA and/or kV according to patient size.? ? COMPARISON:? [facility], CT, CT ABDOMEN PELVIS W CON, 03/11/2022, 20:24. ? FINDINGS:? Image quality:? Excellent.? ? Lung bases:? Unremarkable. Heart:? No significant findings. ? ABDOMEN: Liver:? Unremarkable.? ? Gallbladder:? Unremarkable.? ? Biliary ducts:? Unremarkable.? ? Pancreas:? Unremarkable.? ? Spleen:? Unremarkable.? ? Adrenal Glands:? Unremarkable.? ? Kidneys and Ureters:? Mild bilateral hydronephrosis and hydroureter, likely secondary to bladder outlet obstruction with bladder distension.? 4 mm nonobstructing left lower pole renal stone. ? Stomach and Bowel:? Remote right hemicolectomy.? No dilated or thickened loops of bowel. Peritoneum:? No abnormal intraperitoneal fluid.? No free air.? Shayla mesentery, as before, likely representing chronic inflammatory change. ? Ventral Wall: ? No hernias.? Abdominal Nodes:? No retroperitoneal or mesenteric adenopathy by size criteria.? Vessels:? Aorta and inferior vena cava are normal in size.? ? PELVIS: Pelvic Organs:? Unremarkable.? ? Bladder:? Bladder is markedly distended with a thin wall.? There is a Wynne catheter in the bladder.? The prostate is diffusely enlarged.? ? Pelvic Nodes: No enlarged lymph nodes.? Miscellaneous:? Left inguinal hernia containing fat. ? Bones:? No lytic or blastic bony lesions.? 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 ? ? IMPRESSION:? ? 1. Bladder is markedly distended.? It has a Wynne catheter within it.? There is bilateral mild hydronephrosis and hydroureter, likely secondary to bladder outlet obstruction and a distended bladder.? ? 2. Nonobstructing left renal stone ? ? 3. Prostate enlargement. ? 4. Remote right hemicolectomy. ? 5. 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 ? Dictated by: Duglas Christiansen M.D. on 05/08/2022 at 14:00 ? ? Approved by: Duglas Christiansen M.D. on 05/08/2022 at 14:06 ? [facility] Narrative Medical decision making narrative: This is a 81-year-old male who presents to the emergency department complaining of transverse lower abdominal pain, distention, bloating and was found to have urinary catheter obstruction with 1600 mL in his bladder. His Wynne catheter was removed and a new catheter was placed, his urine was sent for UA and micro and is positive for leukocyte esterase, blood, and yeast. Patient's lab work is significant for mildly elevated WBC for patient compared with his priors. Patient's baseline WBC is 2 0.9-3.5, today is 3.6, no anemia compared with his prior labs, hemoglobin is 11.2 with hematocrit of 31.9. Sodium of 134, potassium 3.4, creatinine 1.03 with a baseline of 1.06-1.1. Lactate of 2.0, hypomagnesemia with a magnesium of 1.1, total bilirubin is elevated at 2.3, no elevation to other liver enzymes, procalcitonin 0.15. Urine culture is pending. Patient was treated in the emergency department with 1 g of ceftriaxone, 500 mg of ciprofloxacin. Prior urine culture shows Enterococcus faecalis with resistance to tetracyclines. Patient was given fluconazole after discussion with pharmacy about his QT level. Patient's QT on rn cardiac in the room is 400-410 and noticed on multiple times while in the room. Ciprofloxacin and fluconazole are concerning together for QT prolongation. He is not been on Cipro for the last few days and he is not on other QT prolonging agents. His magnesium was replaced with 2 g IV, and 400 mg of magnesium oxide, his potassium of 3.4 was replaced with 20 mEq of oral potassium. He remains on 20 mEq of potassium daily with his diuretics. Patient reports that he has been on ciprofloxacin for the last 3 weeks, states that he just ran out of his prescription, endorses having bladder spasms and transverse lower abdominal pain. He has follow-up with Dr. Campbell scheduled on FridayMay 13. Patient was given 1 L IV fluids, states that he feels better, was given strict return precautions for worsening and encouraged to come back to the emergency department if he is unable to tolerate p.o., have any any weakness, ongoing symptoms or worsening. He was educated on how to care for his new Wynne catheter after this was replaced. His urine came from his new Wynne catheter. Patient understands to follow-up with Dr. Campbell and his chart will be sent to him accordingly. Patient is appropriate and amenable to discharge home. Vital signs are stable on repeat examination is unremarkable. Patient has been informed of results. Patient has been given strict return to ER precautions for any new or worsening symptoms. Patient understands to follow up closely with outpatient providers as instructed. Patient understands plan and agrees to discharge home. All questions and concerns answered at this time. <Ml Tariq, DO - Last Filed: 05/09/22 08:19> Lab Data Labs: Lab Results 05/08/22 05/08/22 05/08/22 Range/Units 14:18 14:18 14:18 WBC 3.6 L (4.5-11.0) X10^3/uL RBC 3.29 L (4.5-5.9) X10^6/uL Hgb 11.2 L (13.5-17.5) g/dL Hct 31.9 L (41-53) % MCV 97.0 (80-100) fL MCH 34.0 (26-34) PG MCHC 35.0 (30-36) % RDW 16.7 H (11.6-14.8) % Plt Count 175 (150-400) X10^3/uL Neut % (Auto) Not Reportable Lymph % (Auto) Not Reportable [place] % (Auto) Not Reportable Eos % (Auto) Not Reportable Baso % (Auto) Not Reportable Lymph # (Auto) Not Reportable [place] # (Auto) Not Reportable Baso # (Auto) Not Reportable Total Counted 100 Seg Neutrophils % 45.0 (38-70) % Band Neutrophils % 1.0 L (3-7) % Lymphocytes % (Manual) 32.0 (25-45) % Atypical Lymphs % 2.0 H ( - 0) % Monocytes % (Manual) 19.0 H (2-11) % Basophils % (Manual) 1.0 (0-1) % Neutrophils # (Manual) 1656 L (9571-5270) /uL RBC Morphology Normal morphology Sodium 134 L (137-145) mmol/L Potassium 3.4 (3.4-5.1) mmol/L Chloride 101 (98-107) mmol/L Carbon Dioxide 23 (22-32) mmol/L BUN 15 (9-20) mg/dL Creatinine 1.03 (0.66-1.25) mg/dL Estimated GFR > 60 (>60) mL/min BUN/Creatinine Ratio 14.6 (6-22) Glucose 112 H (80-110) mg/dL Lactate 2.0 (0.7-2.1) mmol/L Calcium 8.7 (8.4-10.2) mg/dL Magnesium 1.1 L (1.6-2.3) mg/dL Total Bilirubin 2.3 H (0.2-1.3) mg/dL AST 41 (17-59) IU/L ALT 26 (<50) IU/L Alkaline Phosphatase 121 (38-126) U/L C-Reactive Protein 0.6 (<1.0) mg/dL Total Protein 6.6 (6.3-8.2) g/dL Albumin 3.3 L (3.5-5.0) g/dL Globulin 3.3 (1.7-4.1) g/dL Albumin/Globulin Ratio 1.0 (1.0-2.8) Procalcitonin (<0.5) ng/mL Urine Color Urine Appearance Urine pH (4.5-8.0) Ur Specific [place] (1.000-1.035) Urine Protein (Negative) Urine Glucose (UA) (Negative) g/dL Urine Ketones (NEGATIVE) Urine Occult Blood (Negative) Urine Nitrate (Negative) Urine Bilirubin (NEGATIVE) Urine Urobilinogen (0.2) E.U./dL Ur Leukocyte Esterase (NEGATIVE) Urine RBC (0-5/HPF) Urine WBC (0-5/HPF) Urine Bacteria (None) Urine Yeast (None) Ur Culture Indicated? 05/08/22 05/08/22 Range/Units 14:18 14:45 WBC (4.5-11.0) X10^3/uL RBC (4.5-5.9) X10^6/uL Hgb (13.5-17.5) g/dL Hct (41-53) % MCV (80-100) fL MCH (26-34) PG MCHC (30-36) % RDW (11.6-14.8) % Plt Count (150-400) X10^3/uL Neut % (Auto) Lymph % (Auto) [place] % (Auto) Eos % (Auto) Baso % (Auto) Lymph # (Auto) [place] # (Auto) Baso # (Auto) Total Counted Seg Neutrophils % (38-70) % Band Neutrophils % (3-7) % Lymphocytes % (Manual) (25-45) % Atypical Lymphs % ( - 0) % Monocytes % (Manual) (2-11) % Basophils % (Manual) (0-1) % Neutrophils # (Manual) ([id number]) /uL RBC Morphology Sodium (137-145) mmol/L Potassium (3.4-5.1) mmol/L Chloride (98-107) mmol/L Carbon Dioxide (22-32) mmol/L BUN (9-20) mg/dL Creatinine (0.66-1.25) mg/dL Estimated GFR (>60) mL/min BUN/Creatinine Ratio (6-22) Glucose (80-110) mg/dL Lactate (0.7-2.1) mmol/L Calcium (8.4-10.2) mg/dL Magnesium (1.6-2.3) mg/dL Total Bilirubin (0.2-1.3) mg/dL AST (17-59) IU/L ALT (<50) IU/L Alkaline Phosphatase (38-126) U/L C-Reactive Protein (<1.0) mg/dL Total Protein (6.3-8.2) g/dL Albumin (3.5-5.0) g/dL Globulin (1.7-4.1) g/dL Albumin/Globulin Ratio (1.0-2.8) Procalcitonin 0.15 (<0.5) ng/mL Urine Color Yellow Urine Appearance Sl cloudy Urine pH 6.5 (4.5-8.0) Ur Specific [place] <=1.005 (1.000-1.035) Urine Protein Negative (Negative) Urine Glucose (UA) Negative (Negative) g/dL Urine Ketones Negative (NEGATIVE) Urine Occult Blood 1+ H (Negative) Urine Nitrate Negative (Negative) Urine Bilirubin Negative (NEGATIVE) Urine Urobilinogen 0.2 (0.2) E.U./dL Ur Leukocyte Esterase 3+ H (NEGATIVE) Urine RBC 10-30/hpf H (0-5/HPF) Urine WBC 10-30/hpf H (0-5/HPF) Urine Bacteria None seen (None) Urine Yeast 30-100/hpf H (None) Ur Culture Indicated? Specimen cultured Discharge Plan Departure Patient Disposition: Home Clinical Impression: Acute urinary obstruction, Hypomagnesemia, Total bilirubin, elevated Complication of indwelling urinary catheter Qualifiers: Device complication type: mechanical Mechanical complication type: leakage Indwelling urinary catheter type: indwelling urethral catheter Encounter type: initial encounter Qualified Code(s): T83.031A - Leakage of indwelling urethral catheter, initial encounter Instructions: How to Care for Your Wynne Catheter -- Male, Acute Cystitis, Benign Prostatic Hyperplasia, Magnesium Oxide, DI for Urinary Catheter Removal Activity Restrictions/Additional Instructions: *You have been diagnosed with an obstructed Wynne catheter, 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 I am sorry for your situation, this is complicated however I am glad you have follow-up scheduled for Friday, I want you to start taking ciprofloxacin again, stay on your other medications, we will call you if your urine culture grows out a resistant form of this bacteria to ciprofloxacin. Hopefully you start getting b lenny now that this is draining. Please consider taking magnesium oxide daily with your urinary electrolyte abnormalities. Continue taking your potassium as well that has helped a little bit. Please stay hydrated. Please come back if you develop fever, chills, pain, anything abnormal again. I am very sorry for how long your visit was today but I am glad that you get the help you need it. I wish you the best, come back if you have any worsening, and I hope you feel better soon. Continue your MiraLax, please take fluconazole every 3 days starting in 3 days for yeast found in your urine. If your urine does not have yeast in it on Friday, you do not need to take the 2nd dose. *What to do: *Please continue to take your regular medications as directed. [x ] New medication prescriptions sent to your pharmacy: [ [facility]] [ ] New medication written as a paper prescription [ ] No new medications given *Please follow up with your primary care provider in 2-3 days, call for an appointment. Let them know you were seen in the Emergency Department and that we asked that you be seen for follow-up. We will electronically transmit a record of today's note if your PCP is in our system *If you do not have a primary care provider please contact [phone] to establish care with one of the [facility] primary care providers. *Return to Emergency Department if you should have any new, worsening, or concerning symptoms, such as [fever greater than 101F, chills, worsening pain, persistent vomiting or other bothersome symptoms]. Prescriptions: New ciprofloxacin HCl 500 mg tablet 500 mg PO BID 7 Days Qty: 14 0RF magnesium oxide 500 mg capsule 500 mg PO BEDTIME Qty: 20 0RF fluconazole 150 mg tablet 150 mg PO Q3D Qty: 2 0RF Rx Instructions: Take in 3 days and again in 3 days if your urine has yeast in it on Friday when you see Dr. Campbell No Action losartan 100 mg tablet 100 mg PO DAILY Qty: 90 3RF potassium chloride 20 mEq tablet extended release 20 meq PO DAILY Qty: 90 3RF furosemide 40 mg tablet 40 mg PO BID Qty: 180 2RF Hold Instructions: Hold to verify that he is still symptomatic simvastatin 40 mg tablet 40 mg PO QDAY Qty: 90 3RF atenolol 100 mg tablet 100 mg PO QDAY Qty: 90 3RF tamsulosin 0.4 mg capsule See Rx Instructions .ROUTE .COMPLEX Qty: 180 0RF Dose Instruction: TAKE 2 CAPSULES BY MOUTH DAILY Rx Instructions: TAKE 2 CAPSULES BY MOUTH DAILY ibuprofen 200 mg tablet 400 mg PO Q6H Qty: 60 0RF acetaminophen [Tylenol] 325 mg capsule 650 mg PO QID PRN (Reason: pain) Qty: 60 0RF fluorouracil 2.5 gram/50 mL Solution 4,800 mg IV NOW Qty: 1 0RF Label Comments: pre ordered for next week Rx Instructions: continuous infusion over 46 hours prochlorperazine maleate [Compazine] 10 mg tablet 10 mg PO Q6H PRN (Reason: Nausea) Qty: 30 0RF prochlorperazine maleate [Compazine] 10 mg tablet 10 mg PO Q6H PRN (Reason: Nausea) Qty: 30 3RF finasteride 5 mg tablet 5 mg PO DAILY Qty: 90 3RF Referrals: Edgardo Reyes MD [Primary Care Provider] - Tony Campbell MD [Physician] - Visit Report Forms: Patient Portal/API <Ml Tariq DO - Last Filed: 05/09/22 08:19> Cosign ED Attending Kristenature Attestation: I was immediately available in the department for consultation. Documentation has been reviewed. I agree with assessment and plan.
--- NOTE | 2022-05-08 12:46 | DI.CT.S_ITS ---
PROCEDURE: CT ABDOMEN PELVIS W CON INDICATIONS: GI bleed, hx proctocolitis, pelvic pain, constipation TECHNIQUE: After the administration of intravenous contrast, axial sections acquired from the lung bases to the pubic symphysis. Coronal and sagittal reformats were performed. For radiation dose reduction, the following was used: automated exposure control, adjustment of mA and/or kV according to patient size. COMPARISON: [facility], CT, CT ABDOMEN PELVIS W CON, 03/11/2022, 20:24. FINDINGS: Image quality: Excellent. Lung bases: Unremarkable. Heart: No significant findings. ABDOMEN: Liver: Unremarkable. Gallbladder: Unremarkable. Biliary ducts: Unremarkable. Pancreas: Unremarkable. Spleen: Unremarkable. Adrenal Glands: Unremarkable. Kidneys and Ureters: Mild bilateral hydronephrosis and hydroureter, likely secondary to bladder outlet obstruction with bladder distension. 4 mm nonobstructing left lower pole renal stone. Stomach and Bowel: Remote right hemicolectomy. No dilated or thickened loops of bowel. Peritoneum: No abnormal intraperitoneal fluid. No free air. Shayla mesentery, as before, likely representing chronic inflammatory change. Ventral Wall: No hernias. Abdominal Nodes: No retroperitoneal or mesenteric adenopathy by size criteria. Vessels: Aorta and inferior vena cava are normal in size. PELVIS: Pelvic Organs: Unremarkable. Bladder: Bladder is markedly distended with a thin wall. There is a Wynne catheter in the bladder. The prostate is diffusely enlarged. Pelvic Nodes: No enlarged lymph nodes. Miscellaneous: Left inguinal hernia containing fat. Bones: No lytic or blastic bony lesions. 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 IMPRESSION: 1. Bladder is markedly distended. It has a Wynne catheter within it. There is bilateral mild hydronephrosis and hydroureter, likely secondary to bladder outlet obstruction and a distended bladder. 2. Nonobstructing left renal stone 3. Prostate enlargement. 4. Remote right hemicolectomy. 5. 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 Dictated by: Duglas Christiansen M.D. on 05/08/2022 at 14:00 Approved by: Duglas Christiansen M.D. on 05/08/2022 at 14:06
--- NOTE | 2022-05-08 13:30 | PC.NURSE ---
port access obtained. port in upper right chest. visualized clearly. cleansed with chloraprep x3. allowed to dry. port stablized and 20g 0.75 needle used. michelle back blood. flushed with saline, line clamped with positive pressure. sterile dressing applied.
[2022-05-08] MEDS: LACTATED RINGERS 1,000 ML 1000 ML IV (14:18)
[2022-05-08 14:28] LABS: Hematocrit 31.9 % (41-53); Hemoglobin 11.2 g/dL (13.5-17.5); Platelet Count 175 X10^3/uL (150-400); Red Blood Cell Count 3.29 X10^6/uL (4.5-5.9); Red Cell Distribution Width 16.7 % (11.6-14.8); White Blood Cell Count 3.6 X10^3/uL (4.5-11.0)
[2022-05-08 14:29] LABS: Add Manual Diff / Slide Review YES
[2022-05-08] MEDS: LIDOCAINE 2% (GLYDO) 6 ML GEL TOP (14:33)
[2022-05-08 14:40] LABS: Alanine Aminotransferase 26 IU/L (<50); Albumin 3.3 g/dL (3.5-5.0); Alkaline Phosphatase 121 U/L (38-126); Aspartate Aminotransferase 41 IU/L (17-59); BUN Creatinine Ratio 14.6 (6-22); Bilirubin Total 2.3 mg/dL (0.2-1.3); Blood Urea Nitrogen 15 mg/dL (9-20); C-Reactive Protein Quant 0.6 mg/dL (<1.0); Calcium 8.7 mg/dL (8.4-10.2); Carbon Dioxide 23 mmol/L (22-32); Chloride 101 mmol/L (98-107); Estimated Glomerular Filt Rate > 60 mL/min (>60); Globulin 3.3 g/dL (1.7-4.1); Glucose 112 mg/dL (80-110); HEMOLYSIS < 15 (0-50); Magnesium 1.1 mg/dL (1.6-2.3); Potassium 3.4 mmol/L (3.4-5.1); Sodium 134 mmol/L (137-145); Total Protein 6.6 g/dL (6.3-8.2)
[2022-05-08 14:53] LABS: Procalcitonin 0.15 ng/mL (<0.5)
[2022-05-08 15:08] LABS: Neutrophils Absolute Manual 1656 /uL (3000-5900); RBC Morphology Normal Morphology; Total Cells Counted 100
[2022-05-08 15:16] LABS: Appearance Urine UA SL CLOUDY; Bilirubin Urine UA NEGATIVE (NEGATIVE); Color Urine UA YELLOW; Glucose Urine UA NEGATIVE (Negative); Ketones Urine UA NEGATIVE (NEGATIVE); Leukocyte Esterase Urine UA 3+ (NEGATIVE); Nitrite Urine UA NEGATIVE (Negative); Occult Blood Urine UA 1+ (Negative); Protein Urine UA NEGATIVE (Negative); Specific Gravity Urine UA <=1.005 (1.000-1.035); Urobilinogen Urine UA 0.2 E.U./dL (0.2); pH Urine UA 6.5 (4.5-8.0)
[2022-05-08 15:23] LABS: RBC Urine 10-30/HPF (0-5/HPF); WBC Urine 10-30/HPF (0-5/HPF)
[2022-05-08 15:24] LABS: Bacteria Urine None Seen; Culture Indicated Urine Specimen Cultured
[2022-05-08] MEDS: MAGNESIUM OXIDE 400 MG TABLET PO (15:27)
[2022-05-08] MEDS: POTASSIUM CHLORIDE 20 MEQ/15 ML UDC PO (15:27)
[2022-05-08] MEDS: MAGNESIUM SULFATE 2 GM/50 ML PIGGYBACK IV (15:28)
[2022-05-08] MEDS: BISACODYL 10 MG SUPP PR (15:35)
[2022-05-08] MEDS: CIPROFLOXACIN 250 MG TABLET 500 MG PO (15:57)
[2022-05-08] MEDS: cefTRIAXone 1,000 MG in SODIUM CHLORIDE 0.9% 100 ML 200 MG IV (15:58)
[2022-05-08] MEDS: FLUCONAZOLE 100 MG TABLET 150 MG PO (16:34)
== END 2022-05-08 17:21 | disposition home or self-care (01) ==
PROVIDERS: Emergency Provider Nurse Practitioner Critical Care Medicine; PCP Student in an Organized Health Care Education/Training Program
DX: T83.031A Leakage of indwelling urethral catheter, initial encounter (principal); N13.8 Other obstructive and reflux uropathy; E83.42 Hypomagnesemia; N40.1 Benign prostatic hyperplasia with lower urinary tract symptoms; R17 Unspecified jaundice; C18.9 Malignant neoplasm of colon, unspecified
CPT/HCPCS: 74177; 80053; 81001; 83605; 83735; 84145; 85007; 85025; 86140; 87040; 87077; 87086; 96361; 96365; 96367; 99284; J0696; J1642; J3475; Q9967

== ENCOUNTER → 2022-05-22 15:38 | Outpatient (CLI) | payer MEDICARE, SELFPAY ==
[2022-02-06 09:24] VITALS: BMI 26.9
== END ==
PROVIDERS: PCP Student in an Organized Health Care Education/Training Program; Visit Provider Urology
DX: N40.1 Benign prostatic hyperplasia with lower urinary tract symptoms (principal); N13.9 Obstructive and reflux uropathy, unspecified
CPT/HCPCS: 51702; 51798; 87086

== ENCOUNTER 2023-02-13 10:30 | Day surgery (SDC) | payer MEDICARE, SELFPAY ==
[2022-07-11 10:56] VITALS: BMI 26.9
--- NOTE | 2023-02-13 | PATH_ITS ---
[facility] Accession Number: [id number] No. of containers..01 Tissue . 01 Material submitted: . colon - TRANSVERSE POLYP . 01 Diagnosis: Transverse Colon Polyp: Colonic mucosa with prominent benign lymphoid aggregate. Negative for dysplasia or malignancy. [facility] 02/21/2023 1032 Local . 01 Electronically signed: . Benjie Swann MD, PhD, Pathologist NPI- [id number] . 01 Gross description: . TRANSVERSE POLYP: Received in formalin is 1 fragment(s) of jose, soft tissue measuring 0.5 x 0.3 x 0.3 cm submitted entirely in 1 cassette(s) /NILS 02/18/2023 1858 Local . 01 Pathologist provided ICD-10: K63.5 . 01 CPT . 478966 Specimen Comment: A courtesy copy of this report has been sent to [phone] Performed at: 01 [facility] [address] [place] [address], [place], [place] [id number] MD Deyvi Melendez MD Phone: [phone]
[2023-02-13 10:42] VITALS: BP 161/101; PULSE 90; RESP 16; TEMP 36.3; O2SAT 98; BMI 27.0
[2023-02-13] MEDS: LACTATED RINGERS 1,000 ML 125 ML IV (11:04)
--- NOTE | 2023-02-13 11:42 | PM.HP.1 ---
History of Present Illness History of Present Illness Date Patient Seen: 02/13/23 Time Patient Seen: 11:43 Chief complaint: SD Narrative: Tanmay an 82-year-old man who was diagnosed with cancer last year. He had a right hemicolectomy and underwent chemotherapy. FOR[facility]LY [facility], [facility] Medical History (Updated 02/13/23 @ 11:43 by Robin Simeon MD) Alcohol use BPH loc w urin obs/LUTS Chicken pox Chronic low back pain Colon cancer Colon polyps (2009) Dupuytren's contracture (09/28/13) Elevated LFTs Hyperlipidemia (1998) Hypertension (1977) Incomplete emptying of bladder Measles SERENITY (obstructive sleep apnea) Pain of right heel Peripheral neuropathy Ulcerative colitis Surgical History H/O colectomy History of colonoscopy with polypectomy (03/05/16) History of colonoscopy with polypectomy (2009) Hx of bilateral cataract extraction Hx of tonsillectomy S/P colon resection Family History Father Hypertension Cardiac disorder Congestive heart failure Mother No problems noted. 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 Smoking Status: Former smoker Tobacco: How many years used: 8 quit status: quit date established alcohol intake: current substance use type: does not use Meds Home Medications and Allergies Home Medications Medication Instructions Recorded Confirmed Type finasteride 5 mg tablet 5 mg PO DAILY #90 tabs 04/23/22 02/13/23 Rx tamsulosin 0.4 mg capsule See Rx Instructions .Route 08/05/22 02/13/23 Rx .COMPLEX #180 caps furosemide 40 mg tablet 40 mg PO BID #180 tabs 10/21/22 02/13/23 Rx sodium,potassium,mag sulfates 17.5 See Rx Instructions PO .COMPLEX 10/22/22 02/13/23 Rx gram-3.13 gram-1.6 gram oral soln #354 mL (Suprep Bowel Prep Kit) atenolol 100 mg tablet 100 mg PO DAILY #90 tabs 01/27/23 02/13/23 Rx losartan 100 mg tablet 100 mg PO DAILY #90 tabs 02/04/23 02/13/23 Rx potassium chloride 20 mEq 20 meq PO DAILY #90 tabs 02/04/23 02/13/23 Rx tablet,extended release Allergies Allergy/AdvReac Type Severity Reaction Status Date / Time No Known Drug Allergies Allergy Verified 01/07/23 16:18 Exam Vital Signs (past 8 hours): - 02/13/23 10:42 Temperature 97.3 F L Pulse Rate 90 Respiratory Rate 16 Blood Pressure 161/101 H Pulse Oximetry 98 Oxygen Delivery Method Room Air Oxygen Delivery Method Room Air Const General: healthy appearing Assessment & Plan Assessment and plan (1) History of colon cancer: Status: Acute Plan We reviewed the risks and benefits of colonoscopy for surveillance due to his history of colon cancer. He would like to proceed.
--- NOTE | 2023-02-13 12:43 | PM.OP.COLON ---
Operative Date/Time/Diagnoses Date of procedure: 02/13/23 Time of procedure: 12:43 Pre-op diagnosis: History of colon cancer Post-op diagnosis: same Procedure & Clinicians Study performed: Colonoscopy Same procedure as scheduled: Yes Surgeon: Robin Simeon Procedure Notes Procedure in detail: Surgeon: Robin Simeon MD Anesthesia: Edgardo Mason CRNA Procedure: The patient was brought to the endoscopy suite, placed in left lateral decubitus position. The patient was connected to monitoring devices. A time-out was performed. Sedation was administered. Once the patient was adequately sedated, a digital rectal exam was performed and was normal. The scope was then inserted and advanced to the anastomosis. The scope was then slowly withdrawn over greater than 6 minutes. The mucosa was thoroughly inspected. There was a 2 mm polyp in the mid transverse colon removed with a cold snare. The scope was retroflexed in the rectum. No other abnormalities were seen. The scope was straightened and removed. The patient was awakened and brought to recovery. Scope withdrawal time: 7 minutes Sedation time: 10 minutes EBL: 2 mL Findings: Diminutive polyp in the transverse colon Post-procedure Disposition: PACU
[2023-02-13 12:44] VITALS: BP 80/49; PULSE 76; RESP 14; TEMP 35.9; O2SAT 93
[2023-02-13 12:47] VITALS: BP 93/59; PULSE 71; RESP 13; O2SAT 94
[2023-02-13 12:55] VITALS: BP 84/57; PULSE 69; RESP 15; O2SAT 96
[2023-02-13 12:56] VITALS: BP 84/57; PULSE 66; RESP 17; O2SAT 97
== END 2023-02-13 13:23 | disposition home or self-care (01) ==
PROVIDERS: PCP Family Medicine; Referring Provider Surgery; Visit Provider Surgery
PROC: 0DJD8ZZ Inspection of Lower Intestinal Tract, Via Natural or Artificial Opening Endoscopic (ICD-10-PCS; CPT 45378; principal; 2023-02-13 11:45)
DX: Z12.11 Encounter for screening for malignant neoplasm of colon (principal); Z85.038 Personal history of other malignant neoplasm of large intestine; K63.5 Polyp of colon
CPT/HCPCS: 45385; J2704

== ENCOUNTER → 2023-04-10 10:52 | Outpatient (CLI) | payer MEDICARE, SELFPAY ==
[2022-07-11 10:56] VITALS: BMI 26.9
[2023-04-10 11:48] LABS: Add Manual Diff / Slide Review NO; Basophils Absolute Auto 0 /uL (0-100); Basophils Percent Auto 0.4 % (0-2); Eosinophils Absolute Auto 600 /uL (0-450); Eosinophils Percent Auto 8.6 % (2-4); Hemoglobin 14.1 g/dL (13.5-17.5); Lymphocytes Absolute Auto 1400 /uL (1100-4500); Mean Corpuscular HGB Conc 35.3 % (30-36); Mean Corpuscular Volume 101.9 fL (80-100); Monocytes Absolute Auto 1000 /uL (0-900); Monocytes Percent Auto 14.3 % (3-14); Neutrophils Absolute Auto 3900 /uL (1500-7000); Neutrophils Percent Auto 56.7 % (50-75); Platelet Count 224 X10^3/uL (150-400); Red Blood Cell Count 3.93 X10^6/uL (4.5-5.9); Red Cell Distribution Width 12.9 % (11.6-14.8); White Blood Cell Count 6.8 X10^3/uL (4.5-11.0)
[2023-04-10 12:36] LABS: Alanine Aminotransferase 28 IU/L (<50); Albumin Globulin Ratio 1.3 (1.0-2.8); Alkaline Phosphatase 81 U/L (38-126); Aspartate Aminotransferase 33 IU/L (17-59); BUN Creatinine Ratio 14.6 (6-22); Bilirubin Total 2.1 mg/dL (0.2-1.3); Blood Urea Nitrogen 15 mg/dL (9-20); Calcium 9.2 mg/dL (8.4-10.2); Carbon Dioxide 25 mmol/L (22-32); Chloride 102 mmol/L (98-107); Estimated Glomerular Filt Rate > 60 mL/min (>60); Glucose 101 mg/dL (80-110); HEMOLYSIS < 15 (0-50); Potassium 4.2 mmol/L (3.4-5.1); Sodium 136 mmol/L (137-145)
== END ==
PROVIDERS: PCP Family Medicine; Referring Provider Internal Medicine Hematology & Oncology; Visit Provider Internal Medicine Hematology & Oncology
DX: C18.2 Malignant neoplasm of ascending colon (principal)
CPT/HCPCS: 36415; 80053; 85025

== ENCOUNTER → 2023-04-15 09:48 | Outpatient (CLI) | payer MEDICARE, SELFPAY ==
[2022-07-11 10:56] VITALS: BMI 26.9
--- NOTE | 2023-04-15 11:39 | DI.CT.S_ITS ---
PROCEDURE: CT ABDOMEN PELVIS W CON INDICATIONS: Malignant neoplasm of ascending colon TECHNIQUE: After the administration of oral and IV contrast, axial sections were acquired from the lung bases to the pubic symphysis. Coronal and sagittal reformats were performed. For radiation dose reduction, the following was used: automated exposure control, adjustment of mA and/or kV according to patient size. COMPARISON: [facility], CT, CT CHEST ABD PEL W CON, 01/16/2022, 12:02. [facility], CT, CT ABDOMEN PELVIS W CON, 05/08/2022, 13:44. FINDINGS: Image quality: Excellent. Lung bases: No pleural effusion. Heart: Aortic valvular calcification. ABDOMEN: Liver: No focal lesion. Hepatic steatosis. Gallbladder: Not distended. Biliary ducts: Unremarkable. Pancreas: Unremarkable. Spleen: Unremarkable. Adrenal Glands: No nodule. Kidneys and Ureters: No hydronephrosis. Duplicated left renal collecting system. Stomach and Bowel: Diverticulosis. No diverticulitis. Medication tablet in the descending colon. Possible area of focal thickening at the ascending colon, (11/09). This is near the surgical anastomosis. No small bowel obstruction. Stomach is not distended. Peritoneum: No abnormal intraperitoneal fluid. No free air. Shayla mesentery. Small mesenteric lymph nodes. These findings appear similar. Ventral Wall: No hernia. Abdominal Nodes: No retroperitoneal or mesenteric adenopathy by size criteria. Vessels: Aorta and inferior vena cava are normal in size. Circumferential calcified atherosclerotic plaque. PELVIS: Pelvic Organs: Prostatomegaly. Bladder: Unremarkable. A small amount of opacified excreted contrast in the bladder. Pelvic Nodes: No enlarged lymph nodes. Miscellaneous: No inguinal hernias are seen. Bones: No suspicious osseous lesion. Bilateral L5 pars defect. Anterolisthesis of L5 on S1 measuring at 0.9 cm, similar. IMPRESSION: 1. Right ileocolic anastomosis. Possible area of focal thickening in the ascending colon. This could be artificial and represent fecal residue. Consider further evaluation with repeat colonoscopy if not recently performed. Follow-up CT may also be helpful. 2. No enlarged lymph nodes. Similar small lymph nodes in the mid abdomen mesentery. Shayla mesentery is unchanged. 3. No suspicious hepatic lesion. Dictated by: Talon Kaur M.D. on 04/15/2023 at 13:03 Approved by: Talon Kaur M.D. on 04/15/2023 at 13:16
== END ==
PROVIDERS: PCP Family Medicine; Referring Provider Internal Medicine Hematology & Oncology; Visit Provider Internal Medicine Hematology & Oncology
DX: C18.2 Malignant neoplasm of ascending colon (principal); K76.0 Fatty (change of) liver, not elsewhere classified; K57.90 Diverticulosis of intestine, part unspecified, without perforation or abscess without bleeding; Z98.0 Intestinal bypass and anastomosis status
CPT/HCPCS: 74177; Q9967

== ENCOUNTER → 2023-12-22 08:08 | Outpatient (CLI) | payer MEDICARE, SELFPAY ==
[2022-07-11 10:56] VITALS: BMI 26.9
[2023-12-22 09:50] LABS: Alanine Aminotransferase 30 IU/L (<50); Albumin 4.2 g/dL (3.5-5.0); Albumin Globulin Ratio 1.7 (1.0-2.8); Alkaline Phosphatase 89 U/L (38-126); Aspartate Aminotransferase 36 IU/L (17-59); BUN Creatinine Ratio 12.8 (6-22); Bilirubin Total 1.6 mg/dL (0.2-1.3); Blood Urea Nitrogen 16 mg/dL (9-20); Calcium 9.1 mg/dL (8.4-10.2); Carbon Dioxide 28 mmol/L (22-32); Chloride 106 mmol/L (98-107); Estimated Glomerular Filt Rate 58 mL/min (>60); Globulin 2.5 g/dL (1.7-4.1); Glucose 98 mg/dL (80-110); HEMOLYSIS < 15 (0-50); Potassium 4.2 mmol/L (3.4-5.1); Sodium 139 mmol/L (137-145); Total Protein 6.7 g/dL (6.3-8.2)
[2023-12-22 10:20] LABS: Carcinoembryonic Antigen 1.4 ng/mL (0.1-3.0)
== END ==
PROVIDERS: PCP Family Medicine; Referring Provider Internal Medicine Hematology & Oncology; Visit Provider Internal Medicine Hematology & Oncology
DX: C18.2 Malignant neoplasm of ascending colon (principal)
CPT/HCPCS: 36415; 80053; 82378

== ENCOUNTER → 2023-12-23 08:35 | Outpatient (CLI) | payer MEDICARE, SELFPAY ==
[2022-07-11 10:56] VITALS: BMI 26.9
--- NOTE | 2023-12-23 08:39 | DI.CT.S_ITS ---
PROCEDURE: CT CHEST ABD PEL W CON INDICATIONS: malignant neoplasm of ascending colon TECHNIQUE: After the administration of intravenous contrast, 5 mm thick sections acquired from the lung apices to the symphysis. 5 mm coronal and sagittal reformats were performed, with additional 7 mm MIP reformats through the lungs. For radiation dose reduction, the following was used: automated exposure control, adjustment of mA and/or kV according to patient size. COMPARISON: [facility], CT, CT ABDOMEN PELVIS W CON, 04/15/2023, 11:17. [facility], CT, CT CHEST ABD PEL W CON, 01/16/2022, 12:02. FINDINGS: Image quality: Excellent. CHEST: Lower Neck: No enlarged lymph nodes. Thyroid: No thyroid nodules which require sonographic follow up, per consensus guidelines. Axillae: No enlarged lymph nodes. Chest Wall: Unremarkable. Lungs and Pleura: No pneumothorax or pleural effusions. Basilar predominant reticulation without subpleural sparing. No honeycombing. Bronchiectasis is present. There is been slight interval progression since 2021. Stable 3 mm nodularity in the anterior right upper lobe (series 4, image 150). Stable 2 mm solid nodule in the central left upper lobe (series 4, image 88). Heart: Heart size is enlarged, with moderate coronary artery calcifications. No pericardial effusion. Thoracic Vessels: The aorta and pulmonary arteries demonstrate normal size. Mediastinum and Pat: No enlarged lymph nodes. Stable prominent, but not pathologically enlarged periesophageal lymph nodes and prevascular lymph node. Esophagus: No wall thickening. No hiatal hernia. ABDOMEN: Liver: No solid mass. Hepatic steatosis. Gallbladder: No radiopaque gallstones or wall thickening. Biliary ducts: No biliary dilation. Pancreas: No ductal dilation. Spleen: Size is within normal limits. Adrenal Glands: No adrenal nodules. Kidneys and Ureters: No hydronephrosis. No solid mass. No complex renal cystic lesion which requires follow up. Nonobstructing 4 mm stone on left. Stomach and Bowel: Normal colonic caliber, without significant wall thickening. Partial colectomy. No measurable mass. Resolved focal thickening of the remaining ascending colon. Colonic diverticulosis without evidence of diverticulitis. Peritoneum: No abnormal intraperitoneal fluid. No free air. Central mesenteric fat stranding Ventral Wall: No significant ventral hernia. Abdominal Nodes: No retroperitoneal or mesenteric adenopathy by size criteria. Vessels: Aorta and inferior vena cava are normal in size. PELVIS: Pelvic Organs: Prostatomegaly. Bladder: Trabeculated bladder wall, indicating chronic outlet obstruction. Pelvic Nodes: No enlarged lymph nodes. Miscellaneous: Small inguinal hernias containing fat. Bones: No aggressive osseous abnormality. Degenerative disc disease of the lumbar spine. Grade 1 anterolisthesis of L5 on S1 secondary to pars defects. IMPRESSION: Right hemicolectomy, without measurable mass. No evidence of metastatic disease. Stable chronic findings as above. Dictated by: Roman Sawant M.D. on 12/23/2023 at 10:52 Approved by: Roman Sawant M.D. on 12/23/2023 at 11:01
== END ==
LOC: CT 08:37
PROVIDERS: PCP Family Medicine; Referring Provider Internal Medicine Hematology & Oncology; Visit Provider Internal Medicine Hematology & Oncology
DX: C18.2 Malignant neoplasm of ascending colon (principal); R91.8 Other nonspecific abnormal finding of lung field; J47.9 Bronchiectasis, uncomplicated; I51.7 Cardiomegaly; I25.10 Atherosclerotic heart disease of native coronary artery without angina pectoris; K76.0 Fatty (change of) liver, not elsewhere classified; N20.0 Calculus of kidney; K57.90 Diverticulosis of intestine, part unspecified, without perforation or abscess without bleeding; N40.0 Benign prostatic hyperplasia without lower urinary tract symptoms; N32.89 Other specified disorders of bladder; K40.90 Unilateral inguinal hernia, without obstruction or gangrene, not specified as recurrent; Z90.49 Acquired absence of other specified parts of digestive tract
CPT/HCPCS: 71260; 74177; Q9967

== ENCOUNTER → 2024-03-17 15:27 | Outpatient (CLI) | payer MEDICARE, SELFPAY ==
[2024-02-18 09:43] VITALS: BMI 26.9
== END ==
PROVIDERS: PCP Family Medicine; Visit Provider Urology
DX: N40.1 Benign prostatic hyperplasia with lower urinary tract symptoms (principal)
CPT/HCPCS: 87086

== ENCOUNTER → 2024-06-18 13:30 | Outpatient (CLI) | payer MEDICARE, SELFPAY ==
[2024-02-18 09:43] VITALS: BMI 26.9
[2024-06-18 14:04] LABS: Add Manual Diff / Slide Review NO; Basophils Absolute Auto 0 /uL (0-100); Basophils Percent Auto 0.5 % (0-2); Eosinophils Absolute Auto 400 /uL (0-450); Eosinophils Percent Auto 4.4 % (2-4); Hematocrit 40.8 % (41-53); Hemoglobin 13.8 g/dL (13.5-17.5); Lymphocytes Absolute Auto 1000 /uL (1100-4500); Lymphocytes Percent Auto 11.9 % (25-40); Mean Corpuscular HGB Conc 33.7 % (30-36); Mean Corpuscular Hemoglobin 35.4 PG (26-34); Mean Corpuscular Volume 104.9 fL (80-100); Monocytes Absolute Auto 900 /uL (0-900); Monocytes Percent Auto 11.6 % (3-14); Neutrophils Absolute Auto 5800 /uL (1500-7000); Neutrophils Percent Auto 71.6 % (50-75); Platelet Count 216 X10^3/uL (150-400); Red Blood Cell Count 3.89 X10^6/uL (4.5-5.9); Red Cell Distribution Width 13.5 % (11.6-14.8); White Blood Cell Count 8.1 X10^3/uL (4.5-11.0)
[2024-06-18 14:33] LABS: Alanine Aminotransferase 32 IU/L (<50); Albumin 4.2 g/dL (3.5-5.0); Albumin Globulin Ratio 1.4 (1.0-2.8); Alkaline Phosphatase 93 U/L (38-126); Aspartate Aminotransferase 43 IU/L (17-59); BUN Creatinine Ratio 17.9 (6-22); Bilirubin Total 1.8 mg/dL (0.2-1.3); Blood Urea Nitrogen 20 mg/dL (9-20); Calcium 9.6 mg/dL (8.4-10.2); Carbon Dioxide 27 mmol/L (22-32); Chloride 105 mmol/L (98-107); Cholesterol 160 mg/dL (140-199); Estimated Glomerular Filt Rate > 60 mL/min (>60); Globulin 2.9 g/dL (1.7-4.1); Glucose 140 mg/dL (80-110); HDL Cholesterol 58 mg/dL (40-60); HEMOLYSIS 42 (0-50); LDL Cholesterol Calculated 88 mg/dL (<100); Potassium 4.6 mmol/L (3.4-5.1); Sodium 138 mmol/L (137-145); Total Protein 7.1 g/dL (6.3-8.2); Triglycerides 69 mg/dL (35-150)
== END ==
PROVIDERS: PCP Family Medicine; Referring Provider Family Medicine; Visit Provider Family Medicine
DX: Z00.00 Encounter for general adult medical examination without abnormal findings (principal); I10 Essential (primary) hypertension; Z78.9 Other specified health status
CPT/HCPCS: 36415; 80053; 80061; 85025

== ENCOUNTER → 2024-07-26 12:16 | Outpatient (CLI) | payer MEDICARE, SELFPAY ==
[2024-02-18 09:43] VITALS: BMI 26.9
--- NOTE | 2024-07-26 12:19 | DI.ECHO.S_ITS ---
[facility] : : [id number] [place] : : [id number] : : Phone: [phone] Echocardiogram Report + + :Name: MANA SALAS Study Date: 07/26/2024 Height: 71 in : :[facility] ReadingLocation: Weight: 215 lb : : Gender: Male BSA: 2.2 m2 : :: 1940 Age: 84 yrs BP: 149/76 mmHg: :Reason For Study: CARDIAC MURMUR : :Ordering Physician: SHARONA, : :ANIA Performed By: Torey Siddiqui : :Referring: ANIA TABOR : + + Interpretation Summary The ejection fraction is estimated to be 60-65%. Grade II diastolic dysfunction. The right ventricular systolic function is normal. The right ventricular systolic pressure is estimated to be at least 49 mmHg based on an estimated right atrial pressure of 3 mm Hg. No significant valvular abnormality. Procedure: A two-dimensional transthoracic echocardiogram with color flow and Doppler was performed. The study quality was technically good. There is no prior echocardiogram noted for this patient. The patient was in normal sinus rhythm during the exam. Left Ventricle: The left ventricle is normal in size. Left ventricular wall thickness is mildly increased. There is no ventricular septal defect visualized. The ejection fraction is estimated to be 60-65%. There are no focal wall motion abnormalities. Grade II diastolic dysfunction. Right Ventricle: The right ventricle is mildly dilated. The right ventricular systolic function is normal. Atria: The left atrial size is normal. The right atrium is normal in size. There is no Doppler evidence for an interatrial shunt. Mitral Valve: The mitral valve leaflets appear mildly thickened, but open well. The mitral valve leaflets are mildly calcified. There is mild mitral annular calcification. There is trace mitral regurgitation. Aortic Valve: The aortic valve is trileaflet. The aortic valve is mildly calcified. The aortic valve opens well. There is no aortic valve stenosis. No aortic regurgitation is present. Tricuspid Valve: The tricuspid valve leaflets are thin and pliable. There is mild tricuspid regurgitation. The right ventricular systolic pressure is estimated to be at least 49 mmHg based on an estimated right atrial pressure of 3 mm Hg. Pulmonic Valve: The pulmonic valve leaflets are thin and pliable; valve motion is normal. There is trace pulmonic regurgitation. Great Vessels: The aortic root is normal size. The dimensions of the ascending aorta are normal. The pulmonary artery is normal size. The IVC is of normal diameter and collapses greater than 50% with a sniff. This suggests a low right atrial pressure of 3 mm Hg. Pericardium/ Pleura There is no pericardial effusion. There is no pleural effusion. MMode/2D Measurements & Calculations LVIDd: 4.9 cm LVOT diam: 2.2 cm LVIDs: 3.5 cm Ao root diam: 3.5 cm FS: 28.9 % asc Aorta Diam: 3.6 cm EPSS: 1.3 cm IVSd: 1.1 cm LVPWd: 1.1 cm LV pascual. diameter/BSA (cm/m^2): 2.3 LV sys. diameter/BSA (cm/m^2): 1.6 LA A2 area: 17.8 cm2 RA long axis: 5.4 cm LA A4 area: 26.0 cm2 RA area: 17.4 cm2 LA length (vol): 6.5 cm RA vol: 47.1 ml LA vol: 60.4 ml RA : 21.7 ml/m2 LA vol index: 27.8 ml/m2 IVC diam: 1.9 cm RVD1 (basal): 4.1 cm RVD2 (mid): 3.2 cm Doppler Measurements & Calculations Ao V2 max: 200.6 cm/sec LVOT Max Sourav: 124.8 cm/sec Ao V2 mean: 132.4 cm/sec LV V1 max P.2 mmHg Ao max P.1 mmHg LV V1 VTI: 30.7 cm Ao mean P.0 mmHg SERGO(I,D): 2.6 cm2 Ao V2 VTI: 44.3 cm SERGO(V,D): 2.3 cm2 sev ratio: 0.69 SERGO indexed to BSA (cm^2/m^2): 1.2 MV E max sourav: 97.1 cm/sec TR max sourav: 339.1 cm/sec MV A max sourav: 93.8 cm/sec TR max P.0 mmHg MV E/A: 1.0 PA V2 max: 76.2 cm/sec Med Peak E' Sourav: 5.3 cm/sec PA V2 mean: 57.8 cm/sec E/E' med: 18.2 PA mean P.5 mmHg Lat Peak E' Sourav: 6.0 cm/sec PA pr(Accel): 41.3 mmHg E/E' lat: 16.3 E/e' average: 17.3 MV dec time: 0.23 sec [facility] 113.6 ml Reading Physician:PM
== END ==
PROVIDERS: PCP Family Medicine; Referring Provider Family Medicine; Visit Provider Family Medicine
DX: I34.81 Nonrheumatic mitral (valve) annulus calcification (principal); I07.1 Rheumatic tricuspid insufficiency; R01.1 Cardiac murmur, unspecified; I10 Essential (primary) hypertension
CPT/HCPCS: 93306

== ENCOUNTER → 2024-12-13 09:43 | Outpatient (CLI) | payer MEDICARE, SELFPAY ==
[2024-02-18 09:43] VITALS: BMI 26.9
[2024-12-13 10:39] LABS: Add Manual Diff / Slide Review NO; Basophils Absolute Auto 0 /uL (0-100); Basophils Percent Auto 0.6 % (0-2); Eosinophils Absolute Auto 500 /uL (0-450); Eosinophils Percent Auto 7.6 % (2-4); Hematocrit 39.9 % (41-53); Hemoglobin 13.8 g/dL (13.5-17.5); Lymphocytes Absolute Auto 1300 /uL (1100-4500); Lymphocytes Percent Auto 19.3 % (25-40); Mean Corpuscular HGB Conc 34.6 % (30-36); Mean Corpuscular Volume 104.1 fL (80-100); Monocytes Absolute Auto 1000 /uL (0-900); Monocytes Percent Auto 14.1 % (3-14); Neutrophils Absolute Auto 4000 /uL (1500-7000); Neutrophils Percent Auto 58.4 % (50-75); Platelet Count 199 X10^3/uL (150-400); Red Blood Cell Count 3.84 X10^6/uL (4.5-5.9); Red Cell Distribution Width 13.4 % (11.6-14.8); White Blood Cell Count 6.9 X10^3/uL (4.5-11.0)
[2024-12-13 11:02] LABS: Alanine Aminotransferase 29 IU/L (<50); Albumin 4.3 g/dL (3.5-5.0); Albumin Globulin Ratio 1.7 (1.0-2.8); Alkaline Phosphatase 100 U/L (38-126); Aspartate Aminotransferase 38 IU/L (17-59); BUN Creatinine Ratio 16.1 (6-22); Bilirubin Total 1.6 mg/dL (0.2-1.3); Blood Urea Nitrogen 18 mg/dL (9-20); Calcium 9.4 mg/dL (8.4-10.2); Carbon Dioxide 23 mmol/L (22-32); Chloride 105 mmol/L (98-107); Estimated Glomerular Filt Rate > 60 mL/min (>60); Globulin 2.6 g/dL (1.7-4.1); Glucose 92 mg/dL (70-99); HEMOLYSIS < 15 (0-50); Potassium 4.2 mmol/L (3.4-5.1); Sodium 139 mmol/L (137-145); Total Protein 6.9 g/dL (6.3-8.2)
[2024-12-13 11:26] LABS: Carcinoembryonic Antigen 1.7 ng/mL (0.1-3.0)
== END ==
PROVIDERS: PCP Family Medicine; Referring Provider Internal Medicine Hematology & Oncology; Visit Provider Internal Medicine Hematology & Oncology
DX: C18.2 Malignant neoplasm of ascending colon (principal)
CPT/HCPCS: 36415; 80053; 82378; 85025

== ENCOUNTER → 2024-12-14 09:50 | Outpatient (CLI) | payer MEDICARE, SELFPAY ==
[2024-02-18 09:43] VITALS: BMI 26.9
--- NOTE | 2024-12-14 11:01 | DI.CT.S_ITS ---
P in ROCEDURE: CT ABDOMEN PELVIS W CON INDICATIONS: MALIG KERWIN ASCENDING COLON TECHNIQUE: After the administration of intravenous contrast, axial sections acquired from the lung bases to the pubic symphysis. Coronal and sagittal reformats were performed. For radiation dose reduction, the following was used: automated exposure control, adjustment of mA and/or kV according to patient size. COMPARISON: [facility], CT, CT CHEST ABD PEL W CON, 12/23/2023, 9:57. [facility], CT, CT ABDOMEN PELVIS W CON, 04/15/2023, 11:17. [facility], CT, CT ABDOMEN PELVIS W CON, 05/08/2022, 13:44. m: Image quality: Diagnostic. Lower Chest: No significant findings. ABDOMEN: Liver: No solid mass. Hepatic steatosis. Gallbladder: No radiopaque gallstones or wall thickening. Biliary ducts: No biliary dilation. Pancreas: No ductal dilation. Spleen: Size is within normal limits. Adrenal Glands: No adrenal nodules. Kidneys and Ureters: No hydronephrosis. No solid mass. No complex renal cystic lesion which requires follow up. Stable 4 mm nonobstructing left renal stone. Bilateral ureters are normal in course and caliber. Stomach and Bowel: Stable postsurgical changes of right hemicolectomy. No evidence for residual/recurrent mass lesion or asymmetric wall thickening. Scattered colonic diverticula without acute inflammation. No evidence for small bowel obstruction or associated inflammatory changes. Peritoneum: No abnormal intraperitoneal fluid. No free air. Stable central mesenteric stranding. Ventral Wall: No significant ventral hernia. Abdominal Nodes: No retroperitoneal or mesenteric adenopathy by size criteria. Vessels: Scattered atherosclerotic calcifications of the abdominal aorta and iliac vessels without aneurysmal dilatation. The inferior vena cava appears patent. PELVIS: Pelvic Organs: Prostatomegaly. Bladder: Mild thickening of the urinary bladder with suggestion of trabeculation likely related to sequela of chronic bladder outlet obstruction. Pelvic Nodes: No evidence for suspicious or enlarging pelvic lymph nodes or retroperitoneal adenopathy. Miscellaneous: Fat containing bilateral inguinal hernias without acute inflammation. Bones: No aggressive osseous abnormality. No acute vertebral body compression fractures. Multilevel spondylitic changes throughout the imaged spine. No suspicious osseous lesions. 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 IMPRESSION: 1. Stable postsurgical changes of right hemicolectomy without evidence for tumor recurrence or metastatic disease. 2. Other chronic findings as above, not significantly changed. Dictated by: Booker Nuñez M.D. on 12/14/2024 at 13:54 Approved by: Booker Nuñez M.D. on 12/14/2024 at 14:27
== END ==
PROVIDERS: PCP Family Medicine; Referring Provider Internal Medicine Hematology & Oncology; Visit Provider Internal Medicine Hematology & Oncology
DX: C18.2 Malignant neoplasm of ascending colon (principal); K76.0 Fatty (change of) liver, not elsewhere classified; N20.0 Calculus of kidney; N32.89 Other specified disorders of bladder; I70.0 Atherosclerosis of aorta; I70.8 Atherosclerosis of other arteries; N40.0 Benign prostatic hyperplasia without lower urinary tract symptoms; Z90.49 Acquired absence of other specified parts of digestive tract
CPT/HCPCS: 74177; Q9967

== ENCOUNTER → 2025-06-21 10:23 | Outpatient (CLI) | payer MEDICARE, SELFPAY ==
[2024-02-18 09:43] VITALS: BMI 26.9
[2025-06-21 11:02] LABS: Hematocrit 36.8 % (41-53); Hemoglobin 12.7 g/dL (13.5-17.5); Mean Corpuscular HGB Conc 34.5 % (30-36); Mean Corpuscular Hemoglobin 34.1 PG (26-34); Mean Corpuscular Volume 98.8 fL (80-100); Platelet Count 204 X10^3/uL (150-400)
[2025-06-21 11:26] LABS: Alanine Aminotransferase 18 IU/L (<50); Albumin 4.0 g/dL (3.5-5.0); Albumin Globulin Ratio 1.4 (1.0-2.8); Alkaline Phosphatase 76 U/L (38-126); Blood Urea Nitrogen 21 mg/dL (9-20); Calcium 9.1 mg/dL (8.4-10.2); Carbon Dioxide 26 mmol/L (22-32); Chloride 106 mmol/L (98-107); Cholesterol 125 mg/dL (140-199); Estimated Glomerular Filt Rate > 60 mL/min (>60); Globulin 2.9 g/dL (1.7-4.1); Glucose 109 mg/dL (70-99); HDL Cholesterol 43 mg/dL (40-60); HEMOLYSIS < 15 (0-50); Potassium 4.2 mmol/L (3.4-5.1); Sodium 139 mmol/L (137-145); Total Protein 6.9 g/dL (6.3-8.2); Triglycerides 110 mg/dL (35-150)
[2025-06-21 11:56] LABS: Carcinoembryonic Antigen 1.2 ng/mL (0.1-3.0)
== END ==
PROVIDERS: PCP Family Medicine; Referring Provider Internal Medicine Hematology & Oncology; Visit Provider Internal Medicine Hematology & Oncology
DX: C18.2 Malignant neoplasm of ascending colon (principal); I10 Essential (primary) hypertension; F10.21 Alcohol dependence, in remission; E78.2 Mixed hyperlipidemia
CPT/HCPCS: 36415; 80053; 80061; 82378; 85027